=== PATIENT | male | born 1970 | race Caucasian/White ===

== ENCOUNTER → 2016-08-24 | Outpatient (CLI) | payer OTHER, BC ==
--- NOTE | 2016-08-24 17:18 | CR ---
EXAMINATION: Left knee HISTORY: Pain COMPARISON: MRI dated 07/26/2016 TECHNIQUE: 4 views FINDINGS/IMPRESSION: There is no acute osseous abnormality, dislocation, or fracture identified. Bon e mineralization and joint spaces appear normal. No soft tissue swelling or joint effusion. Early os teophyte formation is noted.
== END | disposition home or self-care (01) ==
LOC: MW.CHORTHO 15:35
PROVIDERS: ATTEND Orthopaedic Surgery
DX: M25.562 Pain in left knee (principal); M25.762 Osteophyte, left knee
CPT/HCPCS: 73564-26-LT; 73564-LT

== ENCOUNTER 2016-08-30 07:21 | Day surgery (SDC) | payer OTHER, BC ==
[~2016-08-30 07:21] MED LIST: Lactated Ringers 1,000 ML IV SCH; Lidocaine 1% 50 ML MDV ONE; ceFAZolin 2 GM in Premix Bag 1 BAG IV SCH
[2016-08-30] MEDS ORDERED: Lidocaine 2% 5 ML SDV ONE (07:30)
[2016-08-30] MEDS ORDERED: Propofol 200 MG/20 ML SDV ONE (07:31)
[2016-08-30] MEDS ORDERED: fentaNYL 250 MCG/5 ML SDV ONE (07:31)
[2016-08-30] MEDS ORDERED: Midazolam 1 MG/ML 2 ML SDV ONE (07:31)
[2016-08-30] MEDS ORDERED: Succinylcholine/Normal Saline 200 MG/10 ML Syringe ONE (07:32)
[2016-08-30] MEDS ORDERED: Ketorolac 30 MG/ML SDV ONE (07:32)
[2016-08-30] MEDS ORDERED: Ondansetron 4 MG/2 ML SDV ONE (07:32)
[2016-08-30] MEDS ORDERED: Acetaminophen/HYDROcodone 325-5 MG Tab PO PRN (08:00)
--- NOTE | 2016-08-30 08:04 | PCM.PREANE ---
Preanesthetic Assessment - Procedure Proposed Procedure: Left knee arthroscopy - Anesthesia/Transfusion/Family Hx Anesthesia History: Prior Anesthesia Without Reaction Other Type of Anesthesia Reaction Comment: Denies any known problem in past Family History of Anesthesia Reaction: No Transfusion History: No Prior Transfusion(s) - Review of Systems General: No Symptoms Pulmonary: No Symptoms Cardiovascular: No Symptoms (smoker by hx), Other (HTN - treated) Gastrointestinal: No symptoms Neurological: Difficulty Walking (ankles and knees problematic with surgical and arthritic effects) Other: Reports: Thyroid Problems (s/p thyroidectomy; on replacement therapy) - Physical Assessment NPO Status Date: 08/29/16 NPO Status Time: 23:00 O2 Sat by Pulse Oximetry: 95 Respiratory Rate: 18 Vital Signs: Last Vital Signs Temp 97.5 F 08/30/16 07:20 Pulse 86 08/30/16 07:20 Resp 18 08/30/16 07:20 BP 126/92 H 08/30/16 07:20 Pulse Ox 95 08/30/16 07:20 Height: 6 ft Weight: 335 lb ASA Class: 3 Mental Status: Alert & Oriented x3 Airway Class: Mallampati = 3 Dentition: Reports: Normal Dentition, [place](s) (upper frontals) Thyro-Mental Finger Breadths: 3 Mouth Opening Finger Breadths: 3 ROM/Head Extension: Limited/Partial (short neck) Lungs: Clear to auscultation, Normal respiratory effort Cardiovascular: Regular Rate, Regular Rhythm, No Murmurs - Allergies Allergies/Adverse Reactions: Allergies Allergy/AdvReac Type Severity Reaction Status Date / Time lisinopril Allergy Cough Verified 12/23/14 14:32 meloxicam Allergy Chest Pain Verified 12/23/14 14:32 pseudoephedrine HCl Allergy Rash Verified 12/23/14 14:32 [From Actifed] triprolidine HCl Allergy Rash Verified 12/23/14 14:32 [From Actifed] - Blood Blood Available: No Product(s) Available: None - Anesthesia Plan Pre-Op Medication Ordered: None - Acknowledgements Anesthesia Type Planned: General Anesthesia (LMA) Pt an Appropriate Candidate for the Planned Anesthesia: Yes Alternatives and Risks of Anesthesia Discussed w Pt/Guardian: Yes Pt/Guardian Understands and Agrees with Anesthesia Plan: Yes PreAnesthesia Questionnaire HEENT History: Reports: None Cardiovascular History: Reports: Hypertension Respiratory History: Reports: None Gastrointestinal History: Reports: None Genitourinary History: Reports: None Other Musculoskeletal History: hx: fracturing Left Ankle Neurological History: Reports: None Psychiatric History: Reports: None Endocrine/Metabolic History: Reports: Hypothyroidism, Obesity/BMI 30+ Other Endocrine/Metabolic History: hx: Thyroidectomy 4 yrs ago [place], [place] Hematologic History: Reports: None Immunologic History: Reports: None Oncologic (Cancer) History: Reports: Thyroid Dermatologic History: - Past Surgical History Head Surgeries/Procedures: Reports: None HEENT Surgical History: Reports: None Other Cardiovascular Surgeries/Procedures: Angiogram 2 yrs ago, "all ok" Respiratory Surgical History: Reports: None GI Surgical History: Reports: Appendectomy, Cholecystectomy Male Surgical History: Reports: None Endocrine Surgical History: Reports: Thyroidectomy Neurological Surgical History: Reports: None Musculoskeletal Surgical History: Reports: Arthroscopic knee, Other (see below) Other Musculoskeletal Surgeries/Procedures:: 2 arthroscopies on each knee, ORIF left ankle with hardware Oncologic Surgical History: Reports: None Dermatological Surgical History: Reports: Plastic surgical reconstruction/repair - SUBSTANCE USE Smoking Status *Q: Current Every Day Smoker Tobacco Use Within Last Twelve Months: Cigars Second Hand Smoke Exposure: No Days Per Week of Alcohol Use: 1 Number of Drinks Per Day: 0 Total Drinks Per Week: 0 Recreational Drug Use History: No - HOME MEDS Home Medications: Home Meds Losartan Potassium 25 mg PO ACBRK 04/06/14 [History] Morphine Sulfate 30 mg PO BEDTIME 04/06/14 [History] Levothyroxine Sodium [Synthroid] 1 tab PO ACBREAKFAST 12/23/14 [History] Cholecalciferol (Vitamin D3) [Vitamin D3] 2,000 unit PO DAILY 08/28/16 [History] - CURRENT (IN HOUSE) MEDS Current Meds: Current Medications Hydrocodone Bitart/Acetaminophen ([place] 325-5 Mg) 1 - 2 tab PO Q4H PRN PRN Reason: Pain Lactated Ringer's (Ringers, Lactated) 1,000 mls @ 100 mls/hr IV ASDIRECTED [facility], [facility] Last Admin: 08/30/16 07:29 Dose: 100 mls/hr Cefazolin Sodium/Dextrose 2 gm (/ Premix) 50 mls @ 100 mls/hr IV ONCALL [facility] Discontinued Medications Fentanyl (Sublimaze) Confirm Administered Dose 250 mcg .ROUTE .STK-MED ONE Stop: 08/30/16 07:32 Ketorolac Tromethamine (Toradol) Confirm Administered Dose 30 mg .ROUTE .STK- MED ONE Stop: 08/30/16 07:33 Lidocaine (Xylocaine-Mpf 2%) Confirm Administered Dose 10 ml .ROUTE .STK-MED ONE Stop: 08/30/16 07:31 Lidocaine HCl (Xylocaine 1%) Confirm Administered Dose 50 ml .ROUTE .STK-MED ONE Stop: 08/29/16 14:07 Midazolam HCl (Versed 1 Mg/Ml) Confirm Administered Dose 2 mg .ROUTE .STK-MED ONE Stop: 08/30/16 07:32 Ondansetron HCl (Zofran) Confirm Administered Dose 4 mg .ROUTE .STK-MED ONE Stop: 08/30/16 07:33 Propofol (Diprivan 20 Ml) Confirm Administered Dose 400 mg .ROUTE .STK-MED ONE Stop: 08/30/16 07:32 Succinylcholine Chloride (Succinylcholine In Ns Pf) Confirm Administered Dose 200 mg .ROUTE .STK-MED ONE Stop: 08/30/16 07:33
--- NOTE | 2016-08-30 08:59 | PCM.OPNOTE ---
[id number] with partial lateral menisectomy Post-Op Diagnosis: DJD L knee, lateral meniscus tear Anesthesia Technique: General ET tube Primary Surgeon: Tania Vicente Entry Clerk: Dwain Oropeza in mLs: 5 Condition: Good Free Text/Narrative:: tt=20 min #[id number]
[2016-08-30] MEDS ORDERED: HYDROmorphone 2 MG/ML Syringe ONE (09:16)
[2016-08-30] MEDS ORDERED: HYDROmorphone 2 MG/ML Syringe IVPUSH ONE (09:51)
[2016-08-30 11:38] VITALS: BP 122/70
--- NOTE | 2016-08-30 12:16 | PCM.POSTAN ---
POST ANESTHESIA ASSESSMENT - MENTAL STATUS Mental Status: oriented, somnolent - RESPIRATORY Respiratory Status: respiratory rate WNL, airway patent, O2 saturation stable - CARDIOVASCULAR CV Status: pulse rate WNL, blood pressure stable - GASTROINTESTINAL GI Status: no symptoms - POST OP HYDRATION Hydration Status: adequate & stable - OBSERVATIONS Free Text/Narrative:: To SDS bed.
--- NOTE | 2016-08-30 12:17 | PCM48HPAN ---
Post Anesthesia Note - EVALUATION WITHIN 48HRS OF ANESTHETIC Vital Signs in Normal Range: Yes Patient Participated in Evaluation: Yes Respiratory Function Stable: Yes Airway Patent: Yes Cardiovascular Function Stable: Yes Hydration Status Stable: Yes Pain Control Satisfactory: Yes (5/10 and will need some pain meds tonight..per patient) Nausea and Vomiting Control Satisfactory: Yes Mental Status Recovered: Yes - COMMENTS/OBSERVATIONS Free Text/Narrative:: DC to home soon.
--- NOTE | 2016-08-30 14:38 | OR ---
SURGEON: Tania Vicente MD DATE OF PROCEDURE: 08/30/2016 PREOPERATIVE DIAGNOSIS: Degenerative joint disease, left knee. POSTOPERATIVE DIAGNOSIS: 1. Degenerative joint disease, left knee. 2. Left knee lateral meniscus tear. PROCEDURE: Left knee arthroscopy with partial lateral meniscectomy. RETORT SETTER: Kaylen Oropeza PA-C. ANESTHESIA: General. ESTIMATED BLOOD LOSS: 5 mL. TOURNIQUET TIME: 28 minutes. COMPLICATIONS: None. DVT PROPHYLAXIS: Not indicated. IMPLANTS USED: None. BRIEF HISTORY: Ward is a 46-year-old male, who has had complaint of progressive left knee pain. He has had two prior surgeries. Due to his lack of response to conservative treatment, I did recommend surgical intervention. The risks and goals of the procedure were discussed with the patient and were documented preoperatively. He agreed to proceed. DESCRIPTION OF PROCEDURE: The patient was properly identified and brought to the operating room. He was transferred from the OR cart and placed on the operating table in a supine position. General anesthesia was administered. After adequate anesthesia was obtained, a well-padded tourniquet was applied to the left lower extremity. The left lower extremity was then prepped in standard fashion using ChloraPrep solution. It was then sterilely draped. A time-out was performed to ensure correct site and procedure. Preoperative antibiotics were given. The surgical site had been marked preoperatively. An Esmarch was used to exsanguinate the left lower extremity and the tourniquet was inflated to 250 mmHg. A lateral portal arthrotomy was established. Blunt trocar and cannula were introduced into the suprapatellar space. Camera, inflow, and outflow were assembled. The patellofemoral joint was visualized. The patella appeared to track centrally. I then extended down the lateral and medial gutter. No loose bodies were encountered. I then entered the medial compartment. A medial portal arthrotomy was made. A probe was inserted. The meniscus was extensively probed. No tear was appreciated. The medial tibial plateau showed evidence of diffuse grade 2 chondromalacia. Similar findings were noted along the medial femoral condyle. I then entered the notch. Both the ACL and PCL were visualized and probed and found to be intact. I then entered the lateral compartment. There was a portion of tissue along the anterolateral aspect of the meniscus which appeared to be causing some impingement within the joint. This was resected with a shaver. It did not appear to be a portion of the ACL. It appeared to be more hypertrophic tissue along the anterior meniscus. The remainder of the anterior meniscus was intact with minor degenerative fraying. No further impingement was noted. The meniscus was then probed. He was found to have degenerative tearing of the lateral meniscus. This was resected with a combination of biters and shaver. The meniscus was again probed and found to be stable. Grade 3 chondromalacia was noted diffusely along the lateral tibial plateau with grade 2 findings along the lateral femoral condyle. I then re-entered the patellofemoral joint. A portion of the fat pad was resected for visualization. He had extensive degenerative changes along the central portion of the trochlea which measured approximately 15 mm x 25 mm. The undersurface of the patella also showed diffuse grade 2 to grade 3 degenerative findings. A portion of the trochlear groove was treated with a chondroplasty to bring the cartilage back to stable remnant. Instruments were then removed from the knee. The portal sites were closed with 3-0 nylon. Lidocaine 1% was injected along the portal tracts. Xeroform gauze was placed over the wound and a bulky dressing was applied. The tourniquet was then deflated. He was awakened from his anesthetic and transferred back to the operating room cart. He was brought to recovery room in stable condition. All needle and sponge counts were correct. ALLA / LORNA /[id number]
== END 2016-08-30 12:00 | disposition home or self-care (01) ==
LOC: MW.SDS 07:21
PROVIDERS: ATTEND Orthopaedic Surgery
DX: S83.282A Other tear of lateral meniscus, current injury, left knee, initial encounter (principal); M17.12 Unilateral primary osteoarthritis, left knee; M65.862 Other synovitis and tenosynovitis, left lower leg; I10 Essential (primary) hypertension; Z98.890 Other specified postprocedural states; Z79.899 Other long term (current) drug therapy; Z88.8 Allergy status to other drugs, medicaments and biological substances
CPT/HCPCS: 29881; J0690; J1170; J2250; J2405; J3010; J7120; 01400; 88304; J1885; J2704

== ENCOUNTER 2017-01-24 06:24 | Day surgery (SDC) | payer OTHER, BC ==
[~2017-01-24 06:24] MED LIST changes: -Lidocaine 1% 50 ML MDV ONE
[2017-01-24] MEDS ORDERED: Propofol 200 MG/20 ML SDV ONE (07:24)
[2017-01-24] MEDS ORDERED: Lidocaine 2% 5 ML SDV ONE (07:24)
[2017-01-24] MEDS ORDERED: Midazolam 1 MG/ML 2 ML SDV ONE (07:25)
[2017-01-24] MEDS ORDERED: fentaNYL 100 MCG/2 ML SDV ONE (07:25)
[2017-01-24] MEDS ORDERED: Lidocaine 1% 20 ML MDV ONE (07:31)
--- NOTE | 2017-01-24 07:41 | PCM.PREANE ---
Preanesthetic Assessment - Anesthesia/Transfusion/Family Hx Anesthesia History: Prior Anesthesia Without Reaction Other Type of Anesthesia Reaction Comment: Denies any known problem in past Family History of Anesthesia Reaction: No Transfusion History: No Prior Transfusion(s) - Review of Systems General: No Symptoms Pulmonary: No Symptoms Cardiovascular: No Symptoms Gastrointestinal: No Symptoms Neurological: No Symptoms Other: Reports: None - Physical Assessment NPO Status Date: 01/23/17 O2 Sat by Pulse Oximetry: 94 Respiratory Rate: 16 Vital Signs: Last Vital Signs Temp 36.8 C 01/24/17 06:32 Pulse 74 01/24/17 06:32 Resp 16 01/24/17 06:32 BP 128/73 01/24/17 06:32 Pulse Ox 94 L 01/24/17 06:32 Height: 1.83 m Weight: 151.5 kg ASA Class: 2 Airway Class: Mallampati = 3 Dentition: Reports: [place](s) (central maxillary incisors) ROM/Head Extension: Full Lungs: Clear to Auscultation, Normal Respiratory Effort Cardiovascular: Regular Rate, Regular Rhythm - Allergies Allergies/Adverse Reactions: Allergies Allergy/AdvReac Type Severity Reaction Status Date / Time lisinopril Allergy Cough Verified 01/18/17 13:05 meloxicam Allergy Chest Pain Verified 01/18/17 13:05 pseudoephedrine HCl Allergy Rash Verified 01/18/17 13:05 [From Actifed] triprolidine HCl Allergy Rash Verified 01/18/17 13:05 [From Actifed] - Acknowledgements Anesthesia Type Planned: General Anesthesia Pt an Appropriate Candidate for the Planned Anesthesia: Yes Alternatives and Risks of Anesthesia Discussed w Pt/Guardian: Yes Pt/Guardian Understands and Agrees with Anesthesia Plan: Yes Additional Comments: pmh: [place], HTN, chronic pain L foot, thyroid replacement, smoker, probable LYNDSAY. PreAnesthesia Questionnaire HEENT History: Reports: None Cardiovascular History: Reports: Hypertension Respiratory History: Reports: None Gastrointestinal History: Reports: None Genitourinary History: Reports: None Musculoskeletal History: Reports: Fracture Other Musculoskeletal History: hx: fracturing Left Ankle Neurological History: Reports: None Psychiatric History: Reports: None Endocrine/Metabolic History: Reports: Hypothyroidism, Obesity/BMI 30+ Other Endocrine/Metabolic History: hx: Thyroidectomy 4 yrs ago [place] Hematologic History: Reports: None Immunologic History: Reports: None Oncologic (Cancer) History: Reports: Thyroid Dermatologic History: - Past Surgical History Head Surgeries/Procedures: Reports: None HEENT Surgical History: Reports: None Other Cardiovascular Surgeries/Procedures: Angiogram 2 yrs ago, "all ok" Respiratory Surgical History: Reports: None GI Surgical History: Reports: Appendectomy, Cholecystectomy, Hernia Repair/Other Other GI Surgeries/Procedures: abdominoplasty x2 with hernia repair Male Surgical History: Reports: None Endocrine Surgical History: Reports: Thyroidectomy Neurological Surgical History: Reports: None Musculoskeletal Surgical History: Reports: Arthroscopic Knee, Other (See Below) Other Musculoskeletal Surgeries/Procedures:: 2 arthroscopies on each knee, ORIF left ankle with hardware, ligament repair right ankle Oncologic Surgical History: Reports: Other (See Below) Other Oncologic Surgeries/Procedures: thyroidectomy Dermatological Surgical History: Reports: Plastic Surgical Reconstruction/Repair - SUBSTANCE USE Smoking Status *Q: Current Every Day Smoker Tobacco Use Within Last Twelve Months: Cigarettes Second Hand Smoke Exposure: No Days Per Week of Alcohol Use: 1 Number of Drinks Per Day: 0 Total Drinks Per Week: 0 Recreational Drug Use History: No - HOME MEDS Home Medications: Home Meds Losartan Potassium 25 mg PO ACBRK 04/06/14 [History] Morphine Sulfate 30 mg PO BEDTIME 04/06/14 [History] Levothyroxine Sodium [Synthroid] 1 tab PO ACBREAKFAST 12/23/14 [History] Cholecalciferol (Vitamin D3) [Vitamin D3] 2,000 unit PO DAILY 08/28/16 [History] Gabapentin [Neurontin] 300 mg PO TID 01/18/17 [History] - CURRENT (IN HOUSE) MEDS Current Meds: Current Medications Hydrocodone Bitart/Acetaminophen ([place] 325-5 Mg) 1 - 2 tab PO Q4H PRN PRN Reason: Pain Cefazolin Sodium/Dextrose 2 gm (/ Premix) 50 mls @ 100 mls/hr IV ONCALL [facility] Lactated Ringer's (Ringers, Lactated) 1,000 mls @ 100 mls/hr IV ASDIRECTED [facility] Last Admin: 01/24/17 06:38 Dose: 100 mls/hr Discontinued Medications Fentanyl (Sublimaze) Confirm Administered Dose 300 mcg .ROUTE .STK-MED ONE Stop: 01/24/17 07:26 Lidocaine (Xylocaine-Mpf 2%) Confirm Administered Dose 10 ml .ROUTE .STK-MED ONE Stop: 01/24/17 07:25 Lidocaine HCl (Xylocaine 1%) Confirm Administered Dose 20 ml .ROUTE .STK-MED ONE Stop: 01/24/17 07:32 Midazolam HCl (Versed 1 Mg/Ml) Confirm Administered Dose 2 mg .ROUTE .STK-MED ONE Stop: 01/24/17 07:26 Propofol (Diprivan 20 Ml) Confirm Administered Dose 400 mg .ROUTE .STK-MED ONE Stop: 01/24/17 07:25
[2017-01-24] MEDS ORDERED: Acetaminophen/HYDROcodone 325-5 MG Tab PO PRN (08:00)
--- NOTE | 2017-01-24 08:53 | PCM.OPNOTE ---
- General Post-Op/Procedure Note Date of Surgery/Procedure: 01/24/17 Operative Procedure(s): R knee scope with chondroplasty of med/lat tibial plateau Post-Op Diagnosis: DJD R knee Anesthesia Technique: General LMA Primary Surgeon: Tania Vicente Senior Brand Manager: Aftab [place] in mLs: 5 Condition: Good Free Text/Narrative:: #[id number] tt=13 min
[2017-01-24] MEDS ORDERED: fentaNYL 100 MCG/2 ML SDV IVPUSH PRN (09:02)
--- NOTE | 2017-01-24 10:01 | PCM.POSTAN ---
POST ANESTHESIA ASSESSMENT - MENTAL STATUS Mental Status: Alert, Oriented - RESPIRATORY Respiratory Status: Respiratory Rate WNL, Airway Patent, O2 Saturation Stable - CARDIOVASCULAR CV Status: Pulse Rate WNL, Blood Pressure Stable - GASTROINTESTINAL GI Status: No Symptoms - POST OP HYDRATION Hydration Status: Adequate & Stable
--- NOTE | 2017-01-24 10:01 | PCM48HPAN ---
Post Anesthesia Note - EVALUATION WITHIN 48HRS OF ANESTHETIC Vital Signs in Normal Range: Yes Patient Participated in Evaluation: Yes Respiratory Function Stable: Yes Airway Patent: Yes Cardiovascular Function Stable: Yes Hydration Status Stable: Yes Pain Control Satisfactory: Yes Nausea and Vomiting Control Satisfactory: Yes Mental Status Recovered: Yes
--- NOTE | 2017-01-24 10:03 | OR ---
SURGEON: Tania Vicente MD DATE OF PROCEDURE: 01/24/2017 PREOPERATIVE DIAGNOSIS: Degenerative joint disease, right knee. POSTOPERATIVE DIAGNOSIS: Degenerative joint disease, right knee. PROCEDURE: Right knee arthroscopy with chondroplasty of the medial and lateral tibial plateau. DELINQUENCY PREVENTION SOCIAL WORKER: Juan Birmingham, PGY II. ANESTHESIA: General. ESTIMATED BLOOD LOSS: 5 mL. TOURNIQUET TIME: 13 minutes. COMPLICATIONS: None. DVT PROPHYLAXIS: Not indicated. IMPLANTS USED: None. BRIEF HISTORY: Ward is a 46-year-old male, who has had complaint of progressive right knee pain. He did undergo cortisone injections, which gave him good short-term relief. Due to his continued pain, I recommended he undergo a diagnostic arthroscopy. The risks and goals of the procedure were discussed with the patient and were documented preoperatively. He agreed to proceed. DESCRIPTION OF PROCEDURE: The patient was properly identified and brought to the operating room. He was transferred from the OR cart and placed on the operating table in supine position. General anesthesia was administered. After adequate anesthesia was obtained, a well-padded tourniquet was applied to the right lower extremity. The right lower extremity was then prepped in standard fashion using ChloraPrep solution. It was then sterilely draped. A time-out was performed to ensure correct site and procedure. Preoperative antibiotics were given. The surgical site had been marked preoperatively. An Esmarch was used to exsanguinate the right lower extremity and the tourniquet was inflated to 300 mmHg. A lateral portal arthrotomy was established. Blunt trocar and cannula were introduced into the suprapatellar pouch. Camera, inflow, and outflow were assembled. No significant synovitis was noted. The patellofemoral joint was visualized. Degenerative changes were noted. The patella appeared to track centrally. I extended down the lateral and medial gutter. No loose bodies were identified. I then entered the medial compartment. A medial portal arthrotomy was established. A blunt probe was inserted. The meniscus was extensively probed. No evidence of tearing or instability was noted. The medial femoral condyle showed evidence of grade 2 to grade 3 chondromalacia diffusely along the weightbearing surface. The medial tibial plateau also showed grade 3 chondromalacia diffusely. There were some loose fragments found and a chondroplasty was performed using the 4.0 mm shaver. I then entered the notch. Both the ACL and PCL were visualized and probed and found to be intact. I then entered the lateral compartment. The meniscus was again probed and found to be stable. He had grade 2 chondromalacia diffusely along the weightbearing surface of the lateral femoral condyle. The lateral tibial plateau showed extensive degenerative changes with grade 3 to grade 4 chondromalacia. Chondroplasty of the lateral tibial plateau was then performed to remove any loose fragments. I then re-entered the patellofemoral joint. There was diffuse grade 3 to grade 4 chondromalacia along the undersurface of the patella as well as within the trochlear groove. No significant loose flaps were noted. The instruments were then removed from the knee. The portal sites were closed with 3-0 nylon. Lidocaine 1% was injected along the portal tracts. Xeroform gauze was placed over the wound and a bulky dressing was applied. The tourniquet was then deflated. He was awakened from his anesthetic and transferred back to the operating room cart. He was brought to the recovery room in stable condition. All needle and sponge counts were correct. ALLA / LORNA /[id number]
[2017-01-24 10:31] VITALS: BP 114/70
== END 2017-01-24 10:31 | disposition home or self-care (01) ==
LOC: MW.SDS 06:24
PROVIDERS: ATTEND Orthopaedic Surgery
DX: M17.0 Bilateral primary osteoarthritis of knee (principal); M94.261 Chondromalacia, right knee; F17.210 Nicotine dependence, cigarettes, uncomplicated; E89.0 Postprocedural hypothyroidism; I10 Essential (primary) hypertension; G62.9 Polyneuropathy, unspecified; E66.9 Obesity, unspecified; G89.29 Other chronic pain; Z88.8 Allergy status to other drugs, medicaments and biological substances; Z79.899 Other long term (current) drug therapy; Z68.42 Body mass index [BMI] 45.0-49.9, adult; Z90.49 Acquired absence of other specified parts of digestive tract; Z98.890 Other specified postprocedural states
CPT/HCPCS: 29877; J2250; J3010; J7120; 01400; 88304; J2704

== ENCOUNTER 2017-03-26 06:27 | Inpatient (IN) | payer OTHER, BC ==
[~2017-03-26 06:27] MED LIST changes: +Acetaminophen 1,000 MG in Premix Bag 1 BAG IV SCH; +Famotidine 20 MG/2 ML SDV IVPUSH SCH; -Lactated Ringers 1,000 ML IV SCH; +Scopolamine 1.5 MG Transdermal Patch TRDERM SCH; -ceFAZolin 2 GM in Premix Bag 1 BAG IV SCH; +oxyCODONE ER 20 MG TAB.ER PO SCH
[2017-03-26] MEDS: Lactated Ringers 1,000 ML IV SCH ×2 (07:10→20:20)
[2017-03-26] MEDS ORDERED: Lidocaine 2% 5 ML SDV ONE (07:21)
[2017-03-26] MEDS ORDERED: Propofol 200 MG/20 ML SDV ONE ×2 (07:22→07:31)
[2017-03-26] MEDS ORDERED: fentaNYL 100 MCG/2 ML SDV ONE ×2 (07:22→07:27)
[2017-03-26] MEDS ORDERED: Midazolam 1 MG/ML 2 ML SDV ONE (07:22)
--- NOTE | 2017-03-26 07:27 | PCM.PREANE ---
Preanesthetic Assessment - Anesthesia/Transfusion/Family Hx Anesthesia History: Prior Anesthesia Without Reaction Other Type of Anesthesia Reaction Comment: Denies any known problem in past Transfusion History: No Prior Transfusion(s) Intubation History: History of Difficulty Intubation (past when much heavier) - Review of Systems General: Other (lower extremity pain/arthritis) Pulmonary: No Symptoms Cardiovascular: Other (HTN - treated) Gastrointestinal: Other (s/p abdominal plasty prodecure and hernia repairs) Neurological: Gait Disturbance (due to both knee and ankle problems) Other: Reports: Thyroid Problems (CA treated...on thyroid med now) - Physical Assessment NPO Status Date: 03/25/17 NPO Status Time: 23:00 Height: 6 ft Weight: 345 lb ASA Class: 3 Mental Status: Alert & Oriented x3 Airway Class: Mallampati = 2 Dentition: Reports: Normal Dentition, [place](s) Thyro-Mental Finger Breadths: 3 Mouth Opening Finger Breadths: 3 ROM/Head Extension: Limited/Partial Lungs: Clear to Auscultation, Normal Respiratory Effort Cardiovascular: Regular Rate, Regular Rhythm, No Murmurs - Allergies Allergies/Adverse Reactions: Allergies Allergy/AdvReac Type Severity Reaction Status Date / Time lisinopril Allergy Cough Verified 03/23/17 12:52 meloxicam Allergy Chest Pain Verified 03/23/17 12:52 pseudoephedrine HCl Allergy Rash Verified 03/23/17 12:52 [From Actifed] triprolidine HCl Allergy Rash Verified 03/23/17 12:52 [From Actifed] - Blood Blood Available: Yes Product(s) Available: PRBC (T and S) - Anesthesia Plan Pre-Op Medication Ordered: Other (per surgeon) - Acknowledgements Anesthesia Type Planned: Spinal (possible LMA general) Pt an Appropriate Candidate for the Planned Anesthesia: Yes Alternatives and Risks of Anesthesia Discussed w Pt/Guardian: Yes Pt/Guardian Understands and Agrees with Anesthesia Plan: Yes PreAnesthesia Questionnaire HEENT History: Reports: None, Hard of Hearing Other HEENT History: hard of hearing left ear Cardiovascular History: Reports: Hypertension Respiratory History: Reports: None Gastrointestinal History: Reports: None Genitourinary History: Reports: None Musculoskeletal History: Reports: Arthritis, Fracture Other Musculoskeletal History: hx: fracturing Left Ankle Neurological History: Reports: None Psychiatric History: Reports: None Endocrine/Metabolic History: Reports: Hypothyroidism, Obesity/BMI 30+ Other Endocrine/Metabolic History: hx: Thyroidectomy 4 yrs ago [facility] [place], [place] Hematologic History: Reports: None Immunologic History: Reports: None Oncologic (Cancer) History: Reports: Thyroid Dermatologic History: - Past Surgical History Head Surgeries/Procedures: Reports: None HEENT Surgical History: Reports: None, LASIK, Naso-Sinus Surgery Other Cardiovascular Surgeries/Procedures: Angiogram 2 yrs ago, "all ok" Respiratory Surgical History: Reports: None GI Surgical History: Reports: Appendectomy, Cholecystectomy, Hernia Repair/Other Other GI Surgeries/Procedures: abdominoplasty x2 with hernia repair Male Surgical History: Reports: None Endocrine Surgical History: Reports: Thyroidectomy Neurological Surgical History: Reports: None Musculoskeletal Surgical History: Reports: Arthroscopic Knee, Carpal Tunnel, Other (See Below) Other Musculoskeletal Surgeries/Procedures:: 3 arthroscopies on each knee, ORIF left ankle with hardware, ligament repair right ankle, "lump removed " from chest Oncologic Surgical History: Reports: Other (See Below) Other Oncologic Surgeries/Procedures: thyroidectomy Dermatological Surgical History: Reports: Plastic Surgical Reconstruction/Repair - SUBSTANCE USE Smoking Status *Q: Current Some Day Smoker Tobacco Use Within Last Twelve Months: Cigars Second Hand Smoke Exposure: No Days Per Week of Alcohol Use: 1 Number of Drinks Per Day: 0 Total Drinks Per Week: 0 Recreational Drug Use History: No - HOME MEDS Home Medications: Home Meds Losartan Potassium 25 mg PO ACBRK 04/06/14 [History] Morphine Sulfate 30 mg PO BEDTIME 04/06/14 [History] Levothyroxine Sodium [Synthroid] 1 tab PO ACBREAKFAST 12/23/14 [History] Cholecalciferol (Vitamin D3) [Vitamin D3] 1,000 unit PO DAILY 08/28/16 [History] Gabapentin [Neurontin] 300 mg PO TID 01/18/17 [History] Sildenafil Citrate [Sildenafil] 20 mg PO ASDIRECTED PRN 03/23/17 [History] - CURRENT (IN HOUSE) MEDS Current Meds: Current Medications Famotidine (Pepcid) 40 mg IVPUSH ONARRIVE [facility] Last Admin: 03/26/17 07:09 Dose: 40 mg Acetaminophen 1,000 mg/ Premix 100 mls @ 400 mls/hr IV ONARRIVE [facility] Last Admin: 03/26/17 07:07 Dose: 400 mls/hr Cefazolin Sodium/Dextrose 2 gm (/ Premix) 50 mls @ 100 mls/hr IV ONCALL [facility] Ropivacaine 49.25 ml/Epinephrine HCl 0.5 mg/Clonidine HCl 80 mcg/ Sodium Chloride 100 mls @ 50 mls/min INJECT ASDIRECTED [facility] Lactated Ringer's (Ringers, Lactated) 1,000 mls @ 100 mls/hr IV ASDIRECTED [facility] Last Admin: 03/26/17 07:10 Dose: 100 mls/hr Tranexamic Acid 4,000 mg/ (Sodium Chloride) 140 mls @ 600 mls/hr IV ASDIRECTED [facility] Oxycodone HCl (Oxycontin) 20 mg PO ONARRIVE [facility] Last Admin: 03/26/17 07:08 Dose: 20 mg Scopolamine (Transderm-Scop) 1.5 mg TRDERM ONARRIVE [facility] Last Admin: 03/26/17 07:08 Dose: 1.5 mg Discontinued Medications Acetaminophen (Ofirmev) Confirm Administered Dose 100 mls @ as directed IV .STK- MED ONE Stop: 03/26/17 05:46
[2017-03-26] MEDS ORDERED: Ropivacaine 49.25 ML, EPINEPHrine 0.5 MG, cloNIDine 80 MCG in Sodium Chloride 0.9% 49.4... INJECT SCH (08:00)
[2017-03-26] MEDS ORDERED: ceFAZolin 2 GM in Premix Bag 1 BAG IV SCH ×2 (08:00→14:00)
[2017-03-26] MEDS ORDERED: Tranexamic Acid 4,000 MG in Sodium Chloride 0.9% 100 ML IV SCH (08:00)
[2017-03-26] MEDS ORDERED: HYDROmorphone 2 MG/ML Syringe IVPUSH ONE (08:23)
[2017-03-26] MEDS ORDERED: fentaNYL 100 MCG/2 ML SDV IVPUSH PRN (08:23)
[2017-03-26] MEDS ORDERED: ePHEDrine 50 MG/ML SDV ONE (09:36)
--- NOTE | 2017-03-26 09:50 | PCM.SN ---
- Free Text/Narrative Note: Patient had sudden bradycardia with asystole following. Chemical resuscitation was ongoing but chest compressions were iniatiated with this development. LMA was airway and ventilation was confirmed. Patient monitoring confirmed response to epinephrine, robinul, and phenylephrine. Chest compressions stopped with carotid pulse confirmed with then chemically induced hypertensive response with peripeheral vasoconstriction. Vitals stabilized and OET placed alternative to the LMA. Surgical care had been suspended with sterile cover of the surgical site for the short CPR chest access. Case then resumed. See anesthesia record. A -line planned and cardiac enzymes/EKG ordered (to be done in [facility]). Monitor at this time is WNL and expectation is to finish the open knee operation.
[2017-03-26] MEDS ORDERED: Aluminum Hydroxide/Magnesium Hydroxide/Simethicone Susp 30 ML Cup PO PRN (10:40)
[2017-03-26] MEDS ORDERED: Ondansetron 4 MG/2 ML SDV IV PRN (10:40)
[2017-03-26] MEDS ORDERED: Bisacodyl 10 MG Supp RECTAL PRN (10:40)
--- NOTE | 2017-03-26 10:44 | PCM.OPNOTE ---
- General Post-Op/Procedure Note Date of Surgery/Procedure: 03/26/17 Operative Procedure(s): R TKA Post-Op Diagnosis: DJD R knee Anesthesia Technique: General ET Tube, Spinal Primary Surgeon: Tania Vicente Band Leader: Mary Grace Marcelo Band Leader: Dwain Oropeza in mLs: 100 Condition: Good Free Text/Narrative:: tt=65 min #[id number]
[2017-03-26] MEDS ORDERED: Esmolol 100 MG/10 ML SDV ONE (10:46)
--- NOTE | 2017-03-26 11:28 | PCM.LDHP ---
L&D History of Present Illness - General Admit Problem/Dx: Patient Status Order with Admit Dx/Problem 03/26/17 06:00 Patient Status [ADT] Routine Admission Diagnosis/Problem Admission Diagnosis/Problem Replacement of total knee joint - Related Data Allergies/Adverse Reactions: Allergies Allergy/AdvReac Type Severity Reaction Status Date / Time lisinopril Allergy Cough Verified 03/23/17 12:52 meloxicam Allergy Chest Pain Verified 03/23/17 12:52 pseudoephedrine HCl Allergy Rash Verified 03/23/17 12:52 [From Actifed] triprolidine HCl Allergy Rash Verified 03/23/17 12:52 [From Actifed] Home Medications: Home Meds Losartan Potassium 25 mg PO ACBRK 04/06/14 [History] Morphine Sulfate 30 mg PO BEDTIME 04/06/14 [History] Levothyroxine Sodium [Synthroid] 200 mcg PO ACBREAKFAST 12/23/14 [History] Cholecalciferol (Vitamin D3) [Vitamin D3] 1,000 unit PO DAILY 08/28/16 [History] Gabapentin [Neurontin] 300 mg PO TID 01/18/17 [History] Sildenafil Citrate [Sildenafil] 20 mg PO ASDIRECTED PRN 03/23/17 [History] Past Medical History HEENT History: Reports: None, Hard of Hearing Other HEENT History: hard of hearing left ear Cardiovascular History: Reports: Hypertension Respiratory History: Reports: None Gastrointestinal History: Reports: None Genitourinary History: Reports: None Musculoskeletal History: Reports: Arthritis, Fracture Other Musculoskeletal History: hx: fracturing Left Ankle Neurological History: Reports: None Psychiatric History: Reports: None Endocrine/Metabolic History: Reports: Hypothyroidism, Obesity/BMI 30+ Other Endocrine/Metabolic History: hx: Thyroidectomy 4 yrs ago [facility], [place] Hematologic History: Reports: None Immunologic History: Reports: None Oncologic (Cancer) History: Reports: Thyroid Dermatologic History: - Past Surgical History Head Surgeries/Procedures: Reports: None HEENT Surgical History: Reports: None, LASIK, Naso-Sinus Surgery Other Cardiovascular Surgeries/Procedures: Angiogram 2 yrs ago, "all ok" Respiratory Surgical History: Reports: None GI Surgical History: Reports: Appendectomy, Cholecystectomy, Hernia Repair/Other Other GI Surgeries/Procedures: abdominoplasty x2 with hernia repair Male Surgical History: Reports: None Endocrine Surgical History: Reports: Thyroidectomy Neurological Surgical History: Reports: None Musculoskeletal Surgical History: Reports: Arthroscopic Knee, Carpal Tunnel, Other (See Below) Other Musculoskeletal Surgeries/Procedures:: 3 arthroscopies on each knee, ORIF left ankle with hardware, ligament repair right ankle, "lump removed " from chest Oncologic Surgical History: Reports: Other (See Below) Other Oncologic Surgeries/Procedures: thyroidectomy Dermatological Surgical History: Reports: Plastic Surgical Reconstruction/Repair Social & Family History - Tobacco Use Smoking Status *Q: Current Some Day Smoker Years of Tobacco use: 18 Used Tobacco, but Quit: Yes Month Tobacco Last Used: 11/2013 Second Hand Smoke Exposure: No - Alcohol Use Days Per Week of Alcohol Use: 1 Number of Drinks Per Day: 0 Total Drinks Per Week: 0 - Recreational Drug Use Recreational Drug Use: No Drug Use in Last 12 Months: No L&D Exam - Vital Signs Vital Signs: Last Vital Signs Temp 98.2 F 03/26/17 10:56 Pulse 92 03/26/17 11:20 Resp 15 03/26/17 11:20 BP 117/72 03/26/17 11:20 Pulse Ox 98 03/26/17 11:20 Weight: 156.489 kg - Patient Data Lab Results Last 24 hrs: Laboratory Results - last 24 hr 03/26/17 03/26/17 Range/Units 06:58 10:05 Creatine Kinase 135 (9-236) IU/L Troponin I < 0.10 (0.0-0.29) NG/ML Blood Type A POSITIVE Antibody Screen NEGATIVE Orders Last 24hrs: Active Orders 24 hr Category Date Time Status Patient Status [ADT] Routine ADT 03/26/17 06:00 Active Antiembolic Devices [RC] PER UNIT ROUTINE Care 03/26/17 06:00 Active Dressing Change [Wound Care] [RC] ASDIRECTED Care 03/26/17 10:39 Active EKG 12 Lead [EKG Documentation Completion] [RC] URGENT Care 03/26/17 09:38 Active Insert Urinary Catheter [OM.PC] Routine Care 03/26/17 08:00 Ordered Intake and Output [RC] ASDIRECTED Care 03/26/17 10:39 Active Neurovascular Check [RC] Q2HR Care 03/26/17 10:39 Active Notify Provider Consults [RC] ASDIRECTED Care 03/26/17 10:43 Active Notify Provider Vital Signs [RC] ASDIRECTED Care 03/26/17 10:39 Active RT Incentive Spirometry [RC] ASDIRECTED Care 03/26/17 10:39 Active Urinary Catheter Assessment [RC] ASDIRECTED Care 03/26/17 08:00 Active Vital Signs [RC] Q4H Care 03/26/17 10:39 Active Consult to Physician [CONS] Routine Cons 03/26/17 10:42 Active PT Evaluation and Treatment [CONS] Routine Cons 03/26/17 10:39 Active Regular Diet [DIET] Diet 03/26/17 Breakfast Active Knee 1V or 2V Rt [CR] Routine Exams 03/26/17 11:17 Ordered CBC WITH AUTO DIFF [HEME] Stat Lab 03/26/17 11:25 Ordered COMPREHENSIVE METABOLIC PN,CMP [CHEM] Stat Lab 03/26/17 11:26 Ordered HEMOGLOBIN/HEMATOCRIT,HH [HEME] DAILY Lab 03/27/17 06:00 Ordered HEMOGLOBIN/HEMATOCRIT,HH [HEME] DAILY Lab 03/28/17 06:00 Ordered HEMOGLOBIN/HEMATOCRIT,HH [HEME] DAILY Lab 03/29/17 06:00 Ordered MAGNESIUM [CHEM] Stat Lab 03/26/17 11:26 Ordered TROPONIN I [CHEM] Q6H Lab 03/26/17 17:30 Ordered TSH [CHEM] Routine Lab 03/26/17 11:26 Ordered Acetaminophen [Ofirmev] 1,000 mg Med 03/26/17 06:00 Active Premix Bag 1 bag IV ONARRIVE Acetaminophen [Ofirmev] 1,000 mg Med 03/26/17 13:00 Active Premix Bag 1 bag IV Q6H Acetaminophen [Tylenol Extra Strength] Med 03/27/17 01:00 Active 1,000 mg PO Q6H Alum Hydrox/Mag Hydrox/Simeth [Mag-Al Plus] Med 03/26/17 10:40 Active 30 ml PO Q4H PRN Apixaban [Eliquis] Med 03/27/17 09:00 Active 5 mg PO DAILY Bisacodyl [Dulcolax] Med 03/26/17 10:40 Active 10 mg RECTAL DAILY PRN Docusate Sodium [Colace] Med 03/26/17 21:00 Active 100 mg PO BID Famotidine [Pepcid] Med 03/26/17 06:00 Active 40 mg IVPUSH ONARRIVE Famotidine [Pepcid] Med 03/27/17 09:00 Active 40 mg PO DAILY Gabapentin [Neurontin] Med 03/26/17 14:00 Active 300 mg PO TID HYDROmorphone [Dilaudid] Med 03/26/17 10:40 Active 0.5 - 1 mg IVPUSH Q3H PRN Lactated Ringers [Ringers, Lactated] 1,000 ml Med 03/26/17 06:00 Active IV ASDIRECTED Levothyroxine [Synthroid] Med 03/27/17 07:30 Active 200 mcg PO ACBREAKFAST Losartan [Cozaar] Med 03/27/17 07:30 Active 25 mg PO ACBRK Ondansetron [Zofran] Med 03/26/17 10:40 Active 4 mg IV Q6HR PRN Ropivacaine [Naropin 0.2%] 49.25 ml Med 03/26/17 08:00 Active EPINEPHrine [Adrenalin 1:1000] 0.5 mg cloNIDine [Duraclon] 80 mcg Sodium Chloride 0.9% [Normal Saline] 49.45 ml INJECT ASDIRECTED Scopolamine [Transderm-Scop] Med 03/26/17 06:00 Active 1.5 mg TRDERM ONARRIVE Tranexamic Acid [Cyklokapron] 4,000 mg Med 03/26/17 08:00 Active Sodium Chloride 0.9% [Normal Saline] 100 ml IV ASDIRECTED ceFAZolin [Ancef] 2 gm Med 03/26/17 08:00 Active Premix Bag 1 bag IV ONCALL ceFAZolin [Ancef] 2 gm Med 03/26/17 12:30 Active Premix Bag 1 bag IV ONETIME ceFAZolin [Ancef] 2 gm Med 03/26/17 16:30 Active Premix Bag 1 bag IV Q8HR fentaNYL [Sublimaze] Med 03/26/17 08:23 Active 50 mcg IVPUSH Q5M PRN oxyCODONE Med 03/26/17 10:40 Active 5 - 10 mg PO Q4H PRN oxyCODONE ER [OxyCONTIN] Med 03/26/17 06:00 Active 20 mg PO ONARRIVE oxyCODONE ER [OxyCONTIN] Med 03/26/17 21:00 Active 20 mg PO Q12HR Antiembolic Hose [OM.PC] Routine Oth 03/26/17 06:00 Ordered Ice Therapy [OM.PC] Routine Oth 03/26/17 10:39 Ordered Obtain Home Medication List [OM.PC] Routine Oth 03/26/17 06:00 Ordered Sequential Compression Device [OM.PC] Routine Oth 03/26/17 06:00 Ordered Medication Orders Acetaminophen (Tylenol Extra Strength) 1,000 mg PO Q6H [facility] Al Hydroxide/Mg Hydroxide (Mag-Al Plus) 30 ml PO Q4H PRN PRN Reason: indigestion Apixaban (Eliquis) 5 mg PO DAILY [facility] Bisacodyl (Dulcolax) 10 mg RECTAL DAILY PRN PRN Reason: Constipation Docusate Sodium (Colace) 100 mg PO BID [facility] Famotidine (Pepcid) 40 mg IVPUSH ONARRIVE [facility] Last Admin: 03/26/17 07:09 Dose: 40 mg Famotidine (Pepcid) 40 mg PO DAILY [facility] Fentanyl (Sublimaze) 50 mcg IVPUSH Q5M PRN PRN Reason: Pain (severe 7-10) Stop: 03/27/17 08:23 Gabapentin (Neurontin) 300 mg PO TID [facility] Hydromorphone HCl (Dilaudid) 0.5 - 1 mg IVPUSH Q3H PRN PRN Reason: Pain Acetaminophen 1,000 mg/ Premix 100 mls @ 400 mls/hr IV ONARRIVE [facility] Last Admin: 03/26/17 07:07 Dose: 400 mls/hr Cefazolin Sodium/Dextrose 2 gm (/ Premix) 50 mls @ 100 mls/hr IV ONCALL [facility] Ropivacaine 49.25 ml/Epinephrine HCl 0.5 mg/Clonidine HCl 80 mcg/ Sodium Chloride 100 mls @ 50 mls/min INJECT ASDIRECTED [facility] Lactated Ringer's (Ringers, Lactated) 1,000 mls @ 100 mls/hr IV ASDIRECTED [facility] Last Admin: 03/26/17 07:10 Dose: 100 mls/hr Tranexamic Acid 4,000 mg/ (Sodium Chloride) 140 mls @ 600 mls/hr IV ASDIRECTED [facility] Acetaminophen 1,000 mg/ Premix 100 mls @ 400 mls/hr IV Q6H [facility] Stop: 03/26/17 19:14 Cefazolin Sodium/Dextrose 2 gm (/ Premix) 50 mls @ 100 mls/hr IV ONETIME ONE Stop: 03/26/17 12:59 Cefazolin Sodium/Dextrose 2 gm (/ Premix) 50 mls @ 100 mls/hr IV Q8HR [facility] Stop: 03/26/17 22:29 Levothyroxine Sodium (Synthroid) 200 mcg PO ACBREAKFAST [facility] Losartan Potassium (Cozaar) 25 mg PO ACBRK [facility] Ondansetron HCl (Zofran) 4 mg IV Q6HR PRN PRN Reason: NAUSEA/VOMITING Oxycodone HCl (Oxycontin) 20 mg PO ONARRIVE [facility] Last Admin: 03/26/17 07:08 Dose: 20 mg Oxycodone HCl (Oxycodone) 5 - 10 mg PO Q4H PRN PRN Reason: Pain Oxycodone HCl (Oxycontin) 20 mg PO Q12HR [facility] Scopolamine (Transderm-Scop) 1.5 mg TRDER ONARRIVE [facility] Last Admin: 03/26/17 07:08 Dose: 1.5 mg
--- NOTE | 2017-03-26 11:33 | PCM.CONS ---
H&P History of Present Illness - General Date of Service: 03/26/17 Admit Problem/Dx: Admission Diagnosis/Problem Admission Diagnosis/Problem Replacement of total knee joint Source of Information: Old Records, Provider, RN - History of Present Illness Initial Comments - Free Text/Narative: I was called to the recovery room to see this gentleman because of intraoperative asystole. After spinal was placed he became hypotensive. He was given ephedrine and IVF . He then became hypertensive transiently. Shortly thereafter his blood pressure started to drop and he became gradually bradycardic with heart rate decreasing to 19 per minute and then a less than 2 minute episode of asystole. He was treated with robinul, atropine and epinephrine. He was also given chest compressions. He returned to a sinus rhythm. - Related Data Allergies/Adverse Reactions: Allergies Allergy/AdvReac Type Severity Reaction Status Date / Time lisinopril Allergy Cough Verified 03/23/17 12:52 meloxicam Allergy Chest Pain Verified 03/23/17 12:52 pseudoephedrine HCl Allergy Rash Verified 03/23/17 12:52 [From Actifed] triprolidine HCl Allergy Rash Verified 03/23/17 12:52 [From Actifed] Home Medications: Home Meds Losartan Potassium 25 mg PO ACBRK 04/06/14 [History] Morphine Sulfate 30 mg PO BEDTIME 04/06/14 [History] Levothyroxine Sodium [Synthroid] 200 mcg PO ACBREAKFAST 12/23/14 [History] Cholecalciferol (Vitamin D3) [Vitamin D3] 1,000 unit PO DAILY 08/28/16 [History] Gabapentin [Neurontin] 300 mg PO TID 01/18/17 [History] Sildenafil Citrate [Sildenafil] 20 mg PO ASDIRECTED PRN 03/23/17 [History] Past Medical History HEENT History: Reports: None, Hard of Hearing Other HEENT History: hard of hearing left ear Cardiovascular History: Reports: Hypertension Respiratory History: Reports: None Gastrointestinal History: Reports: None Genitourinary History: Reports: None Musculoskeletal History: Reports: Arthritis, Fracture Other Musculoskeletal History: hx: fracturing Left Ankle Neurological History: Reports: None Psychiatric History: Reports: None Endocrine/Metabolic History: Reports: Hypothyroidism, Obesity/BMI 30+ Other Endocrine/Metabolic History: hx: Thyroidectomy 4 yrs ago [facility] - [place], [place] Hematologic History: Reports: None Immunologic History: Reports: None Oncologic (Cancer) History: Reports: Thyroid Dermatologic History: - Past Surgical History Head Surgeries/Procedures: Reports: None HEENT Surgical History: Reports: None, LASIK, Naso-Sinus Surgery Other Cardiovascular Surgeries/Procedures: Angiogram 2 yrs ago, "all ok" Respiratory Surgical History: Reports: None GI Surgical History: Reports: Appendectomy, Cholecystectomy, Hernia Repair/Other Other GI Surgeries/Procedures: abdominoplasty x2 with hernia repair Male Surgical History: Reports: None Endocrine Surgical History: Reports: Thyroidectomy Neurological Surgical History: Reports: None Musculoskeletal Surgical History: Reports: Arthroscopic Knee, Carpal Tunnel, Other (See Below) Other Musculoskeletal Surgeries/Procedures:: 3 arthroscopies on each knee, ORIF left ankle with hardware, ligament repair right ankle, "lump removed " from chest Oncologic Surgical History: Reports: Other (See Below) Other Oncologic Surgeries/Procedures: thyroidectomy Dermatological Surgical History: Reports: Plastic Surgical Reconstruction/Repair Social & Family History - Tobacco Use Smoking Status *Q: Current Some Day Smoker Years of Tobacco use: 18 Used Tobacco, but Quit: Yes Month Tobacco Last Used: 11/2013 Second Hand Smoke Exposure: No - Alcohol Use Days Per Week of Alcohol Use: 1 Number of Drinks Per Day: 0 Total Drinks Per Week: 0 - Recreational Drug Use Recreational Drug Use: No Drug Use in Last 12 Months: No H&P Review of Systems - Review of Systems: Review Of Systems: Unable To Obtain Exam - Exam Exam: See Below - Vital Signs Vital Signs: Last Vital Signs Temp 98.2 F 03/26/17 10:56 Pulse 92 03/26/17 11:20 Resp 15 03/26/17 11:20 BP 117/72 03/26/17 11:20 Pulse Ox 98 03/26/17 11:20 Weight: 156.489 kg - Exam General: Sedated, Lethargic Neck: Supple, Trachea Midline Lungs: Clear to Auscultation, Normal Respiratory Effort Cardiovascular: Regular Rate, Regular Rhythm GI/Abdominal Exam: Soft, Non-Tender Physical Exam Comments:: bilateral dorsales pedis pulses bilaterally; capillary refill left toes about 2 seconds. - Patient Data Lab Results Last 24 hrs: Laboratory Results - last 24 hr 03/26/17 03/26/17 Range/Units 06:58 10:05 Creatine Kinase 135 (9-236) IU/L Troponin I < 0.10 (0.0-0.29) NG/ML Blood Type A POSITIVE Antibody Screen NEGATIVE Consult PN Assessment/Plan Procedures: Procedures CONTRAST X-RAY ESOPHAGUS (09/17/15) CT ABDOMEN W/O & W/DYE (11/27/13) CT ABDOMEN W/O DYE (01/25/15) ELECTRIC CURRENT THERAPY (07/21/16) EXC SKIN ABD (04/08/14) EXC TR-EXT B9+PARAM 0.5 CM< (12/25/14) HOT OR COLD PACKS THERAPY (07/31/16) HYDRATE IV INFUSION ADD-ON (04/08/14) INTMD RPR S/A/T/EXT 20.1-30 (12/25/14) KNEE ARTHROSCOPY/SURGERY (01/24/17) KNEE ARTHROSCOPY/SURGERY (08/30/16) MANUAL THERAPY 1/> REGIONS (07/21/16) MRI JNT OF LWR EXTRE W/O DYE (03/06/17) MRI NECK SPINE W/O & W/DYE (03/31/16) PT EVAL LOW COMPLEX 20 MIN (11/20/16) PT EVAL MOD COMPLEX 30 MIN (06/19/16) THER/PROPH/DIAG INJ IV PUSH (04/08/14) THER/PROPH/DIAG INJ SC/IM (04/08/14) THERAPEUTIC EXERCISES (11/30/16) TISSUE EXAM BY PATHOLOGIST (12/26/16) TX/PRO/DX INJ SAME DRUG FL[employer] (04/08/14) ULTRASOUND THERAPY (11/30/16) UPR/L XTREMITY ART 2 LEVELS (09/17/15) US EXAM OF HEAD AND NECK (09/17/15) X-RAY EXAM KNEE 4 OR MORE (08/24/16) X-RAY EXAM OF ANKLE (03/22/16) X-RAY EXAM OF FOOT (11/15/16) X-RAY EXAM OF KNEE 1 OR 2 (01/11/17) X-RAY EXAM OF SHOULDER (06/18/14) (1) Cardiac arrest SNOMED Code(s): 557229893 Code(s): I46.9 - CARDIAC ARREST, CAUSE UNSPECIFIED Current Visit: Yes (2) Status post right knee replacement SNOMED Code(s): 738179447, 192496573 Code(s): Z96.651 - PRESENCE OF RIGHT ARTIFICIAL KNEE JOINT Current Visit: Yes (3) Status post knee replacement SNOMED Code(s): 033927325 Code(s): Z96.659 - PRESENCE OF UNSPECIFIED ARTIFICIAL KNEE JOINT Current Visit: Yes (4) History of chronic hypertension SNOMED Code(s): 407687382 Code(s): Z86.79 - PERSONAL HISTORY OF OTHER DISEASES OF THE CIRCULATORY SYSTEM Current Visit: Yes Problem List Initiated/Reviewed/Updated: Yes My Orders Last 24 Hours: My Active Orders 03/26/17 11:25 CBC WITH AUTO DIFF [HEME] Stat 03/26/17 11:26 COMPREHENSIVE METABOLIC PN,CMP [CHEM] Stat MAGNESIUM [CHEM] Stat TSH [CHEM] Routine 03/26/17 17:30 TROPONIN I [CHEM] Q6H Plan: troponins EKG echo lab in ICU for now
--- NOTE | 2017-03-26 11:56 | PCM.POSTAN ---
POST ANESTHESIA ASSESSMENT - MENTAL STATUS Mental Status: Alert, Oriented Free Text/Narrative:: A & O times3 responds verbal to verbal - VITAL SIGNS Pulse Rate: 100 SaO2: 97 (2 lpm supplemental O2) Resp Rate: 18 Blood Pressure: 100/64 - RESPIRATORY Respiratory Status: Respiratory Rate WNL, Airway Patent, O2 Saturation Stable, Supplemental Oxygen - CARDIOVASCULAR CV Status: Pulse Rate WNL, Blood Pressure Stable - GASTROINTESTINAL GI Status: No Symptoms - PAIN Pain Score: 0 - POST OP HYDRATION Hydration Status: Adequate & Stable - OBSERVATIONS Free Text/Narrative:: Awake and talking comfortable vitals in stable limits warm pink and dry ready to transfer to phase 2 in ICU
[2017-03-26] MEDS ORDERED: ceFAZolin 2 GM in Premix Bag 1 BAG IV ONE (12:30)
[2017-03-26] MEDS: Acetaminophen 1,000 MG in Premix Bag 1 BAG IV SCH ×2 (12:33→18:33)
[2017-03-26 13:11] LABS: CHLORIDE,CL 109 mmol/L (98-110); SODIUM,NA 138 mmol/L (136-146)
[2017-03-26] MEDS: oxyCODONE 5 MG Tab PO PRN ×4 (13:22→22:09)
[2017-03-26] MEDS: Gabapentin 300 MG Cap PO SCH ×2 (13:25→22:09)
[2017-03-26] MEDS: HYDROmorphone 1 MG/ML Syringe IVPUSH PRN ×2 (14:49→20:06)
--- NOTE | 2017-03-26 15:03 | CR ---
EXAMINATION: Right knee HISTORY: TKA COMPARISON: 03/06/2017 TECHNIQUE: 2 views FINDINGS/IMPRESSION: Right total knee hardware is demonstrated in good position and alignment. Postop erative soft tissue changes are noted.
--- NOTE | 2017-03-26 19:19 | PCM.SN ---
- Free Text/Narrative Note: I spoke with DR Aguirre, cardiology regarding the troponin elevation of 0.3. He is in agreement with us keeping him in our facility for now with serial troponins and close monitoring.
[2017-03-26] MEDS ORDERED: Aspirin 81 MG Tab.Chew PO ONE (19:22)
[2017-03-26] MEDS ORDERED: Magnesium Sulfate/Water 2 GM in Premix Bag 1 BAG IV ONE (19:53)
[2017-03-26] MEDS: Docusate Sodium 100 MG Cap PO SCH (20:08)
[2017-03-26] MEDS: oxyCODONE ER 20 MG TAB.ER PO SCH (20:08)
[2017-03-26] MEDS: ceFAZolin 2 GM in Premix Bag 1 BAG IV SCH (20:18)
[2017-03-27] MEDS: HYDROmorphone 1 MG/ML Syringe IVPUSH PRN ×4 (00:24→13:55)
[2017-03-27] MEDS: Acetaminophen 500 MG Tab PO SCH ×4 (00:27→18:39)
[2017-03-27] MEDS: oxyCODONE 5 MG Tab PO PRN ×5 (03:06→21:15)
[2017-03-27] MEDS: ceFAZolin 2 GM in Premix Bag 1 BAG IV SCH (04:11)
[2017-03-27 04:30] LABS: CHLORIDE,CL 104 mmol/L (98-110); SODIUM,NA 134 mmol/L (136-146)
[2017-03-27] MEDS: Gabapentin 300 MG Cap PO SCH ×3 (05:19→21:11)
[2017-03-27] MEDS: Levothyroxine 100 MCG Tab PO SCH (06:33)
[2017-03-27] MEDS: Losartan 50 MG Tab PO SCH (06:34)
[2017-03-27] MEDS: Famotidine 20 MG Tab PO SCH (07:59)
[2017-03-27] MEDS: Aspirin 81 MG Tab.Chew PO SCH (07:59)
[2017-03-27] MEDS: Apixaban 5 MG Tab PO SCH (07:59)
[2017-03-27] MEDS: oxyCODONE ER 20 MG TAB.ER PO SCH ×2 (07:59→21:10)
[2017-03-27] MEDS: Docusate Sodium 100 MG Cap PO SCH ×2 (07:59→21:10)
[2017-03-27] MEDS: Lactated Ringers 1,000 ML IV SCH (08:01)
--- NOTE | 2017-03-27 08:22 | PCM48HPAN ---
Post Anesthesia Note - EVALUATION WITHIN 48HRS OF ANESTHETIC Vital Signs in Normal Range: Yes Patient Participated in Evaluation: Yes Respiratory Function Stable: Yes Airway Patent: Yes Cardiovascular Function Stable: Yes (ECHO done last pm, mgmt by hospitalist - recovery from cardiac event-good) Hydration Status Stable: Yes Pain Control Satisfactory: Yes (complaint of pain and has not been out of bed) Nausea and Vomiting Control Satisfactory: Yes Mental Status Recovered: Yes - COMMENTS/OBSERVATIONS Free Text/Narrative:: May remove A-line later today.
--- NOTE | 2017-03-27 09:00 | PCM.SURGPN ---
<Mary Grace Marcelo R - Last Filed: 03/27/17 08:55> - General Info Date of Service: 03/27/17 Date of Surgery/Procedure: 03/26/17 POD#: 1 Functional Status: Reports: Pain Controlled, Tolerating Diet. Denies: Ambulating - Review of Systems General: Reports: No Symptoms Pulmonary: Reports: No Symptoms Cardiovascular: Reports: No Symptoms Gastrointestinal: Reports: No Symptoms Musculoskeletal: Reports: Leg Pain Systems Review Comment:: pt resting comfortably in bed pain control meets his expectations states he feels more like himself today has not been OOB but has been moving RLE in bed troponin did rise last night but did not continue to trend upward Dr Aguirre is currently with patient - Patient Data Vitals - Most Recent: Last Vital Signs Temp 98.8 F 03/27/17 04:00 Pulse 71 03/26/17 19:00 Resp 15 03/27/17 07:00 BP 108/79 03/27/17 07:00 Pulse Ox 99 03/27/17 07:00 Weight - Most Recent: 163 kg I&O - Last 24 Hours: Intake & Output 03/26/17 03/27/17 03/27/17 22:59 06:59 14:59 Intake Total 2100 2050 999 Output Total 450 850 Balance 1650 1200 999 Lab Results Last 24 Hrs: Laboratory Results - last 24 hr 03/26/17 03/26/17 03/26/17 Range/Units 10:05 12:36 12:36 WBC 10.88 (4.0-11.0) K/uL RBC 4.55 (4.50-5.90) M/uL Hgb 13.5 (13.0-17.0) g/dL Hct 39.8 (38.0-50.0) % MCV 87.5 (80.0-98.0) fL MCH 29.7 (27.0-32.0) pg MCHC 33.9 (31.0-37.0) g/dL RDW Std Deviation 44.2 (28.0-62.0) fl RDW Coeff of Dora 14 (11.0-15.0) % Plt Count 197 (150-400) K/uL MPV 9.40 (7.40-12.00) fL Neut % (Auto) 83.8 H (48.0-80.0) % Lymph % (Auto) 8.5 L (16.0-40.0) % Emmons % (Auto) 7.1 (0.0-15.0) % Eos % (Auto) 0.4 (0.0-7.0) % Baso % (Auto) 0.2 (0.0-1.5) % Neut # (Auto) 9.1 H (1.4-5.7) K/uL Lymph # (Auto) 0.9 (0.6-2.4) K/uL Emmons # (Auto) 0.8 (0.0-0.8) K/uL Eos # (Auto) 0.0 (0.0-0.7) K/uL Baso # (Auto) 0.0 (0.0-0.1) K/uL Nucleated RBC % 0.0 /100WBC Nucleated RBCs # 0 K/uL Sodium (136-146) mmol/L Potassium (3.5-5.1) mmol/L Chloride (98-110) mmol/L Carbon Dioxide (21-31) mmol/L BUN (6.0-23.0) mg/dL Creatinine (0.6-1.5) mg/dL Est Cr Clr Drug Dosing mL/min Estimated GFR (MDRD) ml/min Glucose (60-110) mg/dL Calcium (8.8-10.8) mg/dL Magnesium (1.5-2.3) mEq/L Total Bilirubin (0.1-1.5) mg/dL AST (5-40) IU/L ALT (8-54) IU/L Alkaline Phosphatase (40-150) Creatine Kinase 135 (9-236) IU/L Troponin I < 0.10 (0.0-0.29) NG/ML Total Protein (6.0-8.0) g/dL Albumin (3.5-5.0) g/dL Globulin (2.0-3.5) g/dL Albumin/Globulin Ratio Triglycerides (10-190) mg/dL Cholesterol (131-240) mg/dL LDL Cholesterol, Calc (60-180) mg/dL VLDL Cholesterol (5-55) mg/dL HDL Cholesterol (40-80) mg/dL Cholesterol/HDL Ratio (3.3-6.0) TSH 3rd Generation 0.88 (0.47-5.0) uIU/mL 03/26/17 03/26/17 03/26/17 Range/Units 12:36 16:08 21:59 WBC (4.0-11.0) K/uL RBC (4.50-5.90) M/uL Hgb (13.0-17.0) g/dL Hct (38.0-50.0) % MCV (80.0-98.0) fL MCH (27.0-32.0) pg MCHC (31.0-37.0) g/dL RDW Std Deviation (28.0-62.0) fl RDW Coeff of Dora (11.0-15.0) % Plt Count (150-400) K/uL MPV (7.40-12.00) fL Neut % (Auto) (48.0-80.0) % Lymph % (Auto) (16.0-40.0) % Emmons % (Auto) (0.0-15.0) % Eos % (Auto) (0.0-7.0) % Baso % (Auto) (0.0-1.5) % Neut # (Auto) (1.4-5.7) K/uL Lymph # (Auto) (0.6-2.4) K/uL Emmons # (Auto) (0.0-0.8) K/uL Eos # (Auto) (0.0-0.7) K/uL Baso # (Auto) (0.0-0.1) K/uL Nucleated RBC % /100WBC Nucleated RBCs # K/uL Sodium 138 (136-146) mmol/L Potassium 5.0 (3.5-5.1) mmol/L Chloride 109 (98-110) mmol/L Carbon Dioxide 23 (21-31) mmol/L BUN 20 (6.0-23.0) mg/dL Creatinine 1.0 (0.6-1.5) mg/dL Est Cr Clr Drug Dosing 98.08 mL/min Estimated GFR (MDRD) > 60.0 ml/min Glucose 106 (60-110) mg/dL Calcium 8.0 L (8.8-10.8) mg/dL Magnesium 1.4 L (1.5-2.3) mEq/L Total Bilirubin 0.3 (0.1-1.5) mg/dL AST 36 (5-40) IU/L ALT 49 (8-54) IU/L Alkaline Phosphatase 35 L (40-150) Creatine Kinase (9-236) IU/L Troponin I 0.31 H* 0.19 (0.0-0.29) NG/ML Total Protein 5.6 L (6.0-8.0) g/dL Albumin 3.2 L (3.5-5.0) g/dL Globulin 2.4 (2.0-3.5) g/dL Albumin/Globulin Ratio 1.33 Triglycerides (10-190) mg/dL Cholesterol (131-240) mg/dL LDL Cholesterol, Calc (60-180) mg/dL VLDL Cholesterol (5-55) mg/dL HDL Cholesterol (40-80) mg/dL Cholesterol/HDL Ratio (3.3-6.0) TSH 3rd Generation (0.47-5.0) uIU/mL 03/27/17 03/27/17 03/27/17 Range/Units 04:01 04:01 04:01 WBC (4.0-11.0) K/uL RBC (4.50-5.90) M/uL Hgb 12.5 L (13.0-17.0) g/dL Hct 36.8 L (38.0-50.0) % MCV (80.0-98.0) fL MCH (27.0-32.0) pg MCHC (31.0-37.0) g/dL RDW Std Deviation (28.0-62.0) fl RDW Coeff of Dora (11.0-15.0) % Plt Count (150-400) K/uL MPV (7.40-12.00) fL Neut % (Auto) (48.0-80.0) % Lymph % (Auto) (16.0-40.0) % Emmons % (Auto) (0.0-15.0) % Eos % (Auto) (0.0-7.0) % Baso % (Auto) (0.0-1.5) % Neut # (Auto) (1.4-5.7) K/uL Lymph # (Auto) (0.6-2.4) K/uL Emmons # (Auto) (0.0-0.8) K/uL Eos # (Auto) (0.0-0.7) K/uL Baso # (Auto) (0.0-0.1) K/uL Nucleated RBC % /100WBC Nucleated RBCs # K/uL Sodium 134 L (136-146) mmol/L Potassium 4.6 (3.5-5.1) mmol/L Chloride 104 (98-110) mmol/L Carbon Dioxide 24 (21-31) mmol/L BUN 18 (6.0-23.0) mg/dL Creatinine 0.8 (0.6-1.5) mg/dL Est Cr Clr Drug Dosing 122.60 mL/min Estimated GFR (MDRD) > 60.0 ml/min Glucose 117 H (60-110) mg/dL Calcium 7.9 L (8.8-10.8) mg/dL Magnesium 1.8 (1.5-2.3) mEq/L Total Bilirubin (0.1-1.5) mg/dL AST (5-40) IU/L ALT (8-54) IU/L Alkaline Phosphatase (40-150) Creatine Kinase (9-236) IU/L Troponin I 0.10 (0.0-0.29) NG/ML Total Protein (6.0-8.0) g/dL Albumin (3.5-5.0) g/dL Globulin (2.0-3.5) g/dL Albumin/Globulin Ratio Triglycerides 81 (10-190) mg/dL Cholesterol 116 L (131-240) mg/dL LDL Cholesterol, Calc 75 (60-180) mg/dL VLDL Cholesterol 16 (5-55) mg/dL HDL Cholesterol 25 L (40-80) mg/dL Cholesterol/HDL Ratio 4.6 (3.3-6.0) TSH 3rd Generation (0.47-5.0) uIU/mL Med Orders - Current: Current Medications Acetaminophen (Tylenol Extra Strength) 1,000 mg PO Q6H [facility] Last Admin: 03/27/17 06:31 Dose: 1,000 mg Al Hydroxide/Mg Hydroxide (Mag-Al Plus) 30 ml PO Q4H PRN PRN Reason: indigestion Apixaban (Eliquis) 5 mg PO DAILY [facility] Last Admin: 03/27/17 07:59 Dose: 5 mg Aspirin (Aspirin) 81 mg PO DAILY [facility] Last Admin: 03/27/17 07:59 Dose: 81 mg Bisacodyl (Dulcolax) 10 mg RECTAL DAILY PRN PRN Reason: Constipation Docusate Sodium (Colace) 100 mg PO BID [facility] Last Admin: 03/27/17 07:59 Dose: 100 mg Famotidine (Pepcid) 40 mg IVPUSH ONARRIVE [facility] Last Admin: 03/26/17 07:09 Dose: 40 mg Famotidine (Pepcid) 40 mg PO DAILY [facility] Last Admin: 03/27/17 07:59 Dose: 40 mg Gabapentin (Neurontin) 300 mg PO TID [facility] Last Admin: 03/27/17 05:19 Dose: 300 mg Hydromorphone HCl (Dilaudid) 0.5 - 1 mg IVPUSH Q3H PRN PRN Reason: Pain Last Admin: 03/27/17 05:17 Dose: 1 mg Acetaminophen 1,000 mg/ Premix 100 mls @ 400 mls/hr IV ONARRIVE [facility] Last Admin: 03/26/17 07:07 Dose: 400 mls/hr Cefazolin Sodium/Dextrose 2 gm (/ Premix) 50 mls @ 100 mls/hr IV ONCALL [facility] Ropivacaine 49.25 ml/Epinephrine HCl 0.5 mg/Clonidine HCl 80 mcg/ Sodium Chloride 100 mls @ 50 mls/min INJECT ASDIRECTED [facility] Lactated Ringer's (Ringers, Lactated) 1,000 mls @ 100 mls/hr IV ASDIRECTED [facility] Last Admin: 03/27/17 08:01 Dose: 100 mls/hr Tranexamic Acid 4,000 mg/ (Sodium Chloride) 140 mls @ 600 mls/hr IV ASDIRECTED [facility] Levothyroxine Sodium (Synthroid) 200 mcg PO ACBREAKFAST [facility] Last Admin: 03/27/17 06:33 Dose: 200 mcg Losartan Potassium (Cozaar) 25 mg PO ACBRK [facility] Last Admin: 03/27/17 06:34 Dose: 25 mg Ondansetron HCl (Zofran) 4 mg IV Q6HR PRN PRN Reason: NAUSEA/VOMITING Oxycodone HCl (Oxycontin) 20 mg PO ONARRIVE [facility] Last Admin: 03/26/17 07:08 Dose: 20 mg Oxycodone HCl (Oxycodone) 5 - 10 mg PO Q4H PRN PRN Reason: Pain Last Admin: 03/27/17 03:06 Dose: 10 mg Oxycodone HCl (Oxycontin) 20 mg PO Q12HR [facility] Last Admin: 03/27/17 07:59 Dose: 20 mg Scopolamine (Transderm-Scop) 1.5 mg TRDERM ONARRIVE [facility] Last Admin: 03/26/17 07:08 Dose: 1.5 mg Discontinued Medications Aspirin (Aspirin) 81 mg PO ONETIME ONE Stop: 03/26/17 19:23 Last Admin: 03/26/17 20:08 Dose: 81 mg Ephedrine Sulfate (Ephedrine Sulfate) Confirm Administered Dose 50 mg .ROUTE .STK-MED ONE Stop: 03/26/17 09:37 Esmolol HCl (Esmolol) Confirm Administered Dose 100 mg .ROUTE .STK-MED ONE Stop: 03/26/17 10:47 Fentanyl (Sublimaze) Confirm Administered Dose 100 mcg .ROUTE .STK-MED ONE Stop: 03/26/17 07:23 Fentanyl (Sublimaze) Confirm Administered Dose 100 mcg .ROUTE .STK-MED ONE Stop: 03/26/17 07:28 Fentanyl (Sublimaze) 50 mcg IVPUSH Q5M PRN PRN Reason: Pain (severe 7-10) Stop: 03/27/17 08:23 Hydromorphone HCl (Dilaudid) 0 mg IVPUSH ONETIME ONE Stop: 03/26/17 08:24 Last Admin: 03/26/17 13:00 Dose: Not Given Acetaminophen (Ofirmev) Confirm Administered Dose 100 mls @ as directed IV .STK- MED ONE Stop: 03/26/17 05:46 Last Admin: 03/26/17 13:00 Dose: Not Given Acetaminophen 1,000 mg/ Premix 100 mls @ 400 mls/hr IV Q6H [facility] Stop: 03/26/17 19:14 Last Admin: 03/26/17 18:33 Dose: 400 mls/hr Cefazolin Sodium/Dextrose 2 gm (/ Premix) 50 mls @ 100 mls/hr IV Q8HR [facility] Stop: 03/27/17 06:29 Cefazolin Sodium/Dextrose 2 gm (/ Premix) 50 mls @ 100 mls/hr IV ONETIME ONE Stop: 03/26/17 12:59 Last Admin: 03/26/17 12:34 Dose: 100 mls/hr Cefazolin Sodium/Dextrose 2 gm (/ Premix) 50 mls @ 100 mls/hr IV Q8H [facility] Stop: 03/27/17 04:59 Last Admin: 03/27/17 04:11 Dose: 100 mls/hr Magnesium Sulfate 2 gm/ Premix 50 mls @ 25 mls/hr IV ONETIME ONE Stop: 03/26/17 21:52 Last Admin: 03/26/17 20:08 Dose: 50 mls/hr Lidocaine (Xylocaine-Mpf 2%) Confirm Administered Dose 10 ml .ROUTE .STK-MED ONE Stop: 03/26/17 07:22 Midazolam HCl (Versed 1 Mg/Ml) Confirm Administered Dose 2 mg .ROUTE .STK-MED ONE Stop: 03/26/17 07:23 Propofol (Diprivan 20 Ml) Confirm Administered Dose 400 mg .ROUTE .STK-MED ONE Stop: 03/26/17 07:23 Propofol (Diprivan 20 Ml) Confirm Administered Dose 200 mg .ROUTE .STK-MED ONE Stop: 03/26/17 07:32 Tranexamic Acid (Cyklokapron) Confirm Administered Dose 4,000 mg .ROUTE .STK- MED ONE Stop: 03/26/17 07:50 - Exam Wound/Incisions: Dressing Dry and Intact. No: Drainage, Erythema General: Alert, Oriented Cardiovascular: Regular Rate, Regular Rhythm Extremities: Other (exam RLE - at/ehl/gastroc 5/5, dp 2+, sensation intact distally) Physical Findings Comment:: vss, afeb uo 1300mL hgb 12.5 no further elevation of serial troponins after 03/26 1730 lab draw - Problem List Review Problem List Initiated/Reviewed/Updated: Yes - My Orders Last 24 Hours: Active Orders 24 hr Category Date Time Status Dressing Change [Wound Care] [RC] Q12H Care 03/26/17 10:39 Active EKG Documentation Completion [RC] AM Care 03/27/17 07:00 Active Insert Urinary Catheter [OM.PC] Routine Care 03/26/17 08:00 Ordered Neurovascular Check [RC] Q2HR Care 03/26/17 10:39 Active Notify Provider Consults [RC] ASDIRECTED Care 03/26/17 10:43 Active Notify Provider Vital Signs [RC] ASDIRECTED Care 03/26/17 10:39 Active RT Incentive Spirometry [RC] ASDIRECTED Care 03/26/17 10:39 Active Urinary Catheter Assessment [RC] Q4H Care 03/26/17 08:00 Active Vital Signs [RC] Q1H Care 03/26/17 10:39 Active Consult to Physician [CONS] Routine Cons 03/26/17 10:42 Active PT Evaluation and Treatment [CONS] Routine Cons 03/26/17 10:39 Active Echo 2D wo Cont [US] Urgent Exams 03/26/17 11:34 Taken BASIC METABOLIC PANEL,BMP [CHEM] AM Lab 03/28/17 05:11 Ordered HEMOGLOBIN/HEMATOCRIT,HH [HEME] DAILY Lab 03/28/17 06:00 Ordered HEMOGLOBIN/HEMATOCRIT,HH [HEME] DAILY Lab 03/29/17 06:00 Ordered MAGNESIUM [CHEM] AM Lab 03/28/17 05:11 Ordered MAGNESIUM [CHEM] AM Lab 03/29/17 05:11 Ordered Acetaminophen [Tylenol Extra Strength] Med 03/27/17 01:00 Active 1,000 mg PO Q6H Alum Hydrox/Mag Hydrox/Simeth [Mag-Al Plus] Med 03/26/17 10:40 Active 30 ml PO Q4H PRN Apixaban [Eliquis] Med 03/27/17 09:00 Active 5 mg PO DAILY Aspirin Med 03/27/17 09:00 Active 81 mg PO DAILY Bisacodyl [Dulcolax] Med 03/26/17 10:40 Active 10 mg RECTAL DAILY PRN Docusate Sodium [Colace] Med 03/26/17 21:00 Active 100 mg PO BID Famotidine [Pepcid] Med 03/27/17 09:00 Active 40 mg PO DAILY Gabapentin [Neurontin] Med 03/26/17 14:00 Active 300 mg PO TID HYDROmorphone [Dilaudid] Med 03/26/17 10:40 Active 0.5 - 1 mg IVPUSH Q3H PRN Levothyroxine [Synthroid] Med 03/27/17 07:30 Active 200 mcg PO ACBREAKFAST Losartan [Cozaar] Med 03/27/17 07:30 Active 25 mg PO ACBRK Ondansetron [Zofran] Med 03/26/17 10:40 Active 4 mg IV Q6HR PRN Ropivacaine [Naropin 0.2%] 49.25 ml Med 03/26/17 08:00 Active EPINEPHrine [Adrenalin 1:1000] 0.5 mg cloNIDine [Duraclon] 80 mcg Sodium Chloride 0.9% [Normal Saline] 49.45 ml INJECT ASDIRECTED Tranexamic Acid [Cyklokapron] 4,000 mg Med 03/26/17 08:00 Active Sodium Chloride 0.9% [Normal Saline] 100 ml IV ASDIRECTED ceFAZolin [Ancef] 2 gm Med 03/26/17 08:00 Active Premix Bag 1 bag IV ONCALL oxyCODONE Med 03/26/17 10:40 Active 5 - 10 mg PO Q4H PRN oxyCODONE ER [OxyCONTIN] Med 03/26/17 21:00 Active 20 mg PO Q12HR Ice Therapy [OM.PC] Routine Oth 03/26/17 10:39 Ordered Medication Orders Acetaminophen (Tylenol Extra Strength) 1,000 mg PO Q6H [facility] Last Admin: 03/27/17 06:31 Dose: 1,000 mg Admin: 03/27/17 00:27 Dose: 1,000 mg Al Hydroxide/Mg Hydroxide (Mag-Al Plus) 30 ml PO Q4H PRN PRN Reason: indigestion Apixaban (Eliquis) 5 mg PO DAILY [facility] Last Admin: 03/27/17 07:59 Dose: 5 mg Aspirin (Aspirin) 81 mg PO DAILY [facility] Last Admin: 03/27/17 07:59 Dose: 81 mg Bisacodyl (Dulcolax) 10 mg RECTAL DAILY PRN PRN Reason: Constipation Docusate Sodium (Colace) 100 mg PO BID [facility] Last Admin: 03/27/17 07:59 Dose: 100 mg Admin: 03/26/17 20:08 Dose: 100 mg Famotidine (Pepcid) 40 mg IVPUSH ONARRIVE [facility] Last Admin: 03/26/17 07:09 Dose: 40 mg Famotidine (Pepcid) 40 mg PO DAILY [facility] Last Admin: 03/27/17 07:59 Dose: 40 mg Gabapentin (Neurontin) 300 mg PO TID [facility] Last Admin: 03/27/17 05:19 Dose: 300 mg Admin: 03/26/17 22:09 Dose: 300 mg Admin: 03/26/17 13:25 Dose: 300 mg Hydromorphone HCl (Dilaudid) 0.5 - 1 mg IVPUSH Q3H PRN PRN Reason: Pain Last Admin: 03/27/17 05:17 Dose: 1 mg Admin: 03/27/17 00:24 Dose: 1 mg Admin: 03/26/17 20:06 Dose: 1 mg Admin: 03/26/17 14:49 Dose: 1 mg Acetaminophen 1,000 mg/ Premix 100 mls @ 400 mls/hr IV ONARRIVE [facility] Last Admin: 03/26/17 07:07 Dose: 400 mls/hr Cefazolin Sodium/Dextrose 2 gm (/ Premix) 50 mls @ 100 mls/hr IV ONCALL [facility] Ropivacaine 49.25 ml/Epinephrine HCl 0.5 mg/Clonidine HCl 80 mcg/ Sodium Chloride 100 mls @ 50 mls/min INJECT ASDIRECTED [facility] Lactated Ringer's (Ringers, Lactated) 1,000 mls @ 100 mls/hr IV ASDIRECTED [facility] Last Admin: 03/27/17 08:01 Dose: 100 mls/hr Infusion: 03/27/17 06:20 Dose: 100 mls/hr Admin: 03/26/17 20:20 Dose: 100 mls/hr Infusion: 03/26/17 17:10 Dose: 100 mls/hr Admin: 03/26/17 07:10 Dose: 100 mls/hr Tranexamic Acid 4,000 mg/ (Sodium Chloride) 140 mls @ 600 mls/hr IV ASDIRECTED [facility] Levothyroxine Sodium (Synthroid) 200 mcg PO ACBREAKFAST [facility] Last Admin: 03/27/17 06:33 Dose: 200 mcg Losartan Potassium (Cozaar) 25 mg PO ACBRK [facility] Last Admin: 03/27/17 06:34 Dose: 25 mg Ondansetron HCl (Zofran) 4 mg IV Q6HR PRN PRN Reason: NAUSEA/VOMITING Oxycodone HCl (Oxycontin) 20 mg PO ONARRIVE [facility] Last Admin: 03/26/17 07:08 Dose: 20 mg Oxycodone HCl (Oxycodone) 5 - 10 mg PO Q4H PRN PRN Reason: Pain Last Admin: 03/27/17 03:06 Dose: 10 mg Admin: 03/26/17 22:09 Dose: 10 mg Admin: 03/26/17 17:44 Dose: 10 mg Admin: 03/26/17 14:34 Dose: 5 mg Admin: 03/26/17 13:22 Dose: 5 mg Oxycodone HCl (Oxycontin) 20 mg PO Q12HR [facility] Last Admin: 03/27/17 07:59 Dose: 20 mg Admin: 03/26/17 20:08 Dose: 20 mg Scopolamine (Transderm-Scop) 1.5 mg TRDERM ONARRIVE [facility] Last Admin: 03/26/17 07:08 Dose: 1.5 mg - Assessment Assessment (Free Text/Narrative):: POD#1 R TKA acute posthemorrhagic anemia - Plan Plan (Free Text/Narrative):: continue tejada for I&O unless hospitalist feels removal is appropriate continue IVF per hospitalist discrection continue pain management Eliquis 5mg PO daily as DVT prophylaxis PT today - may try to get pt out of bed to his tolerance appreciate hospitalist management along with cardiology service dressing change tomorrow <Tania Vicente R - Last Filed: 03/27/17 17:07> - Patient Data Vitals - Most Recent: Last Vital Signs Temp 98.7 F 03/27/17 16:47 Pulse 90 03/27/17 16:47 Resp 17 03/27/17 16:47 BP 106/62 03/27/17 16:47 Pulse Ox 92 L 03/27/17 16:47 I&O - Last 24 Hours: Intake & Output 03/27/17 03/27/17 03/27/17 06:59 14:59 22:59 Intake Total 2050 999 4050 Output Total 850 3450 Balance 1200 999 600 Lab Results Last 24 Hrs: Laboratory Results - last 24 hr 03/26/17 03/26/17 03/27/17 Range/Units 16:08 21:59 04:01 Hgb 12.5 L (13.0-17.0) g/dL Hct 36.8 L (38.0-50.0) % Sodium (136-146) mmol/L Potassium (3.5-5.1) mmol/L Chloride (98-110) mmol/L Carbon Dioxide (21-31) mmol/L BUN (6.0-23.0) mg/dL Creatinine (0.6-1.5) mg/dL Est Cr Clr Drug Dosing mL/min Estimated GFR (MDRD) ml/min Glucose (60-110) mg/dL Calcium (8.8-10.8) mg/dL Magnesium (1.5-2.3) mEq/L Troponin I 0.31 H* 0.19 (0.0-0.29) NG/ML Triglycerides (10-190) mg/dL Cholesterol (131-240) mg/dL LDL Cholesterol, Calc (60-180) mg/dL VLDL Cholesterol (5-55) mg/dL HDL Cholesterol (40-80) mg/dL Cholesterol/HDL Ratio (3.3-6.0) 03/27/17 03/27/17 Range/Units 04:01 04:01 Hgb (13.0-17.0) g/dL Hct (38.0-50.0) % Sodium 134 L (136-146) mmol/L Potassium 4.6 (3.5-5.1) mmol/L Chloride 104 (98-110) mmol/L Carbon Dioxide 24 (21-31) mmol/L BUN 18 (6.0-23.0) mg/dL Creatinine 0.8 (0.6-1.5) mg/dL Est Cr Clr Drug Dosing 122.60 mL/min Estimated GFR (MDRD) > 60.0 ml/min Glucose 117 H (60-110) mg/dL Calcium 7.9 L (8.8-10.8) mg/dL Magnesium 1.8 (1.5-2.3) mEq/L Troponin I 0.10 (0.0-0.29) NG/ML Triglycerides 81 (10-190) mg/dL Cholesterol 116 L (131-240) mg/dL LDL Cholesterol, Calc 75 (60-180) mg/dL VLDL Cholesterol 16 (5-55) mg/dL HDL Cholesterol 25 L (40-80) mg/dL Cholesterol/HDL Ratio 4.6 (3.3-6.0) Med Orders - Current: Current Medications Acetaminophen (Tylenol Extra Strength) 1,000 mg PO Q6H [facility] Last Admin: 03/27/17 12:22 Dose: 1,000 mg Al Hydroxide/Mg Hydroxide (Mag-Al Plus) 30 ml PO Q4H PRN PRN Reason: indigestion Apixaban (Eliquis) 5 mg PO DAILY [facility] Last Admin: 03/27/17 07:59 Dose: 5 mg Aspirin (Aspirin) 81 mg PO DAILY [facility] Last Admin: 03/27/17 07:59 Dose: 81 mg Bisacodyl (Dulcolax) 10 mg RECTAL DAILY PRN PRN Reason: Constipation Docusate Sodium (Colace) 100 mg PO BID [facility] Last Admin: 03/27/17 07:59 Dose: 100 mg Famotidine (Pepcid) 40 mg IVPUSH ONARRIVE [facility] Last Admin: 03/26/17 07:09 Dose: 40 mg Famotidine (Pepcid) 40 mg PO DAILY [facility] Last Admin: 03/27/17 07:59 Dose: 40 mg Gabapentin (Neurontin) 300 mg PO TID [facility] Last Admin: 03/27/17 13:07 Dose: 300 mg Hydromorphone HCl (Dilaudid) 0.5 - 1 mg IVPUSH Q3H PRN PRN Reason: Pain Last Admin: 03/27/17 13:55 Dose: 1 mg Acetaminophen 1,000 mg/ Premix 100 mls @ 400 mls/hr IV ONARRIVE [facility] Last Admin: 03/26/17 07:07 Dose: 400 mls/hr Cefazolin Sodium/Dextrose 2 gm (/ Premix) 50 mls @ 100 mls/hr IV ONCALL [facility] Ropivacaine 49.25 ml/Epinephrine HCl 0.5 mg/Clonidine HCl 80 mcg/ Sodium Chloride 100 mls @ 50 mls/min INJECT ASDIRECTED [facility] Lactated Ringer's (Ringers, Lactated) 1,000 mls @ 50 mls/hr IV ASDIRECTED [facility] Last Infusion: 03/27/17 10:30 Dose: 50 mls/hr Tranexamic Acid 4,000 mg/ (Sodium Chloride) 140 mls @ 600 mls/hr IV ASDIRECTED [facility] Levothyroxine Sodium (Synthroid) 200 mcg PO ACBREAKFAST [facility] Last Admin: 03/27/17 06:33 Dose: 200 mcg Losartan Potassium (Cozaar) 25 mg PO ACBRK [facility] Last Admin: 03/27/17 06:34 Dose: 25 mg Ondansetron HCl (Zofran) 4 mg IV Q6HR PRN PRN Reason: NAUSEA/VOMITING Oxycodone HCl (Oxycontin) 20 mg PO ONARRIVE [facility] Last Admin: 03/26/17 07:08 Dose: 20 mg Oxycodone HCl (Oxycodone) 5 - 10 mg PO Q4H PRN PRN Reason: Pain Last Admin: 03/27/17 13:07 Dose: 10 mg Oxycodone HCl (Oxycontin) 20 mg PO Q12HR [facility] Last Admin: 03/27/17 07:59 Dose: 20 mg Scopolamine (Transderm-Scop) 1.5 mg TRDERM ONARRIVE [facility] Last Admin: 03/26/17 07:08 Dose: 1.5 mg Discontinued Medications Aspirin (Aspirin) 81 mg PO ONETIME ONE Stop: 03/26/17 19:23 Last Admin: 03/26/17 20:08 Dose: 81 mg Ephedrine Sulfate (Ephedrine Sulfate) Confirm Administered Dose 50 mg .ROUTE .STK-MED ONE Stop: 03/26/17 09:37 Esmolol HCl (Esmolol) Confirm Administered Dose 100 mg .ROUTE .STK-MED ONE Stop: 03/26/17 10:47 Fentanyl (Sublimaze) Confirm Administered Dose 100 mcg .ROUTE .STK-MED ONE Stop: 03/26/17 07:23 Fentanyl (Sublimaze) Confirm Administered Dose 100 mcg .ROUTE .STK-MED ONE Stop: 03/26/17 07:28 Fentanyl (Sublimaze) 50 mcg IVPUSH Q5M PRN PRN Reason: Pain (severe 7-10) Stop: 03/27/17 08:23 Hydromorphone HCl (Dilaudid) 0 mg IVPUSH ONETIME ONE Stop: 03/26/17 08:24 Last Admin: 03/26/17 13:00 Dose: Not Given Acetaminophen (Ofirmev) Confirm Administered Dose 100 mls @ as directed IV .STK- MED ONE Stop: 03/26/17 05:46 Last Admin: 03/26/17 13:00 Dose: Not Given Acetaminophen 1,000 mg/ Premix 100 mls @ 400 mls/hr IV Q6H [facility] Stop: 03/26/17 19:14 Last Admin: 03/26/17 18:33 Dose: 400 mls/hr Cefazolin Sodium/Dextrose 2 gm (/ Premix) 50 mls @ 100 mls/hr IV Q8HR [facility] Stop: 03/27/17 06:29 Cefazolin Sodium/Dextrose 2 gm (/ Premix) 50 mls @ 100 mls/hr IV ONETIME ONE Stop: 03/26/17 12:59 Last Admin: 03/26/17 12:34 Dose: 100 mls/hr Cefazolin Sodium/Dextrose 2 gm (/ Premix) 50 mls @ 100 mls/hr IV Q8H [facility] Stop: 03/27/17 04:59 Last Admin: 03/27/17 04:11 Dose: 100 mls/hr Magnesium Sulfate 2 gm/ Premix 50 mls @ 25 mls/hr IV ONETIME ONE Stop: 03/26/17 21:52 Last Admin: 03/26/17 20:08 Dose: 50 mls/hr Lidocaine (Xylocaine-Mpf 2%) Confirm Administered Dose 10 ml .ROUTE .STK-MED ONE Stop: 03/26/17 07:22 Midazolam HCl (Versed 1 Mg/Ml) Confirm Administered Dose 2 mg .ROUTE .STK-MED ONE Stop: 03/26/17 07:23 Propofol (Diprivan 20 Ml) Confirm Administered Dose 400 mg .ROUTE .STK-MED ONE Stop: 03/26/17 07:23 Propofol (Diprivan 20 Ml) Confirm Administered Dose 200 mg .ROUTE .STK-MED ONE Stop: 03/26/17 07:32 Tranexamic Acid (Cyklokapron) Confirm Administered Dose 4,000 mg .ROUTE .STK- MED ONE Stop: 03/26/17 07:50 - My Orders Last 24 Hours: Active Orders 24 hr Category Date Time Status Transfer Patient (Change bed) [ADT] Routine ADT 03/27/17 10:38 Ordered Telemetry Monitoring [Cardiac Monitoring] [RC] Q8H Care 03/27/17 11:29 Active Consult to Physician [CONS] Routine Cons 03/27/17 09:29 Active BASIC METABOLIC PANEL,BMP [CHEM] AM Lab 03/28/17 05:11 Ordered HEMOGLOBIN/HEMATOCRIT,HH [HEME] DAILY Lab 03/28/17 06:00 Ordered HEMOGLOBIN/HEMATOCRIT,HH [HEME] DAILY Lab 03/29/17 06:00 Ordered MAGNESIUM [CHEM] AM Lab 03/28/17 05:11 Ordered MAGNESIUM [CHEM] AM Lab 03/29/17 05:11 Ordered Acetaminophen [Tylenol Extra Strength] Med 03/27/17 01:00 Active 1,000 mg PO Q6H Apixaban [Eliquis] Med 03/27/17 09:00 Active 5 mg PO DAILY Aspirin Med 03/27/17 09:00 Active 81 mg PO DAILY Docusate Sodium [Colace] Med 03/26/17 21:00 Active 100 mg PO BID Famotidine [Pepcid] Med 03/27/17 09:00 Active 40 mg PO DAILY Levothyroxine [Synthroid] Med 03/27/17 07:30 Active 200 mcg PO ACBREAKFAST Losartan [Cozaar] Med 03/27/17 07:30 Active 25 mg PO ACBRK oxyCODONE ER [OxyCONTIN] Med 03/26/17 21:00 Active 20 mg PO Q12HR Medication Orders Acetaminophen (Tylenol Extra Strength) 1,000 mg PO Q6H [facility] Last Admin: 03/27/17 12:22 Dose: 1,000 mg Admin: 03/27/17 06:31 Dose: 1,000 mg Admin: 03/27/17 00:27 Dose: 1,000 mg Al Hydroxide/Mg Hydroxide (Mag-Al Plus) 30 ml PO Q4H PRN PRN Reason: indigestion Apixaban (Eliquis) 5 mg PO DAILY [facility] Last Admin: 03/27/17 07:59 Dose: 5 mg Aspirin (Aspirin) 81 mg PO DAILY [facility] Last Admin: 03/27/17 07:59 Dose: 81 mg Bisacodyl (Dulcolax) 10 mg RECTAL DAILY PRN PRN Reason: Constipation Docusate Sodium (Colace) 100 mg PO BID [facility] Last Admin: 03/27/17 07:59 Dose: 100 mg Admin: 03/26/17 20:08 Dose: 100 mg Famotidine (Pepcid) 40 mg IVPUSH ONARRIVE [facility] Last Admin: 03/26/17 07:09 Dose: 40 mg Famotidine (Pepcid) 40 mg PO DAILY [facility] Last Admin: 03/27/17 07:59 Dose: 40 mg Gabapentin (Neurontin) 300 mg PO TID [facility] Last Admin: 03/27/17 13:07 Dose: 300 mg Admin: 03/27/17 05:19 Dose: 300 mg Admin: 03/26/17 22:09 Dose: 300 mg Admin: 03/26/17 13:25 Dose: 300 mg Hydromorphone HCl (Dilaudid) 0.5 - 1 mg IVPUSH Q3H PRN PRN Reason: Pain Last Admin: 03/27/17 13:55 Dose: 1 mg Admin: 03/27/17 10:20 Dose: 1 mg Admin: 03/27/17 05:17 Dose: 1 mg Admin: 03/27/17 00:24 Dose: 1 mg Admin: 03/26/17 20:06 Dose: 1 mg Admin: 03/26/17 14:49 Dose: 1 mg Acetaminophen 1,000 mg/ Premix 100 mls @ 400 mls/hr IV ONARRIVE [facility] Last Admin: 03/26/17 07:07 Dose: 400 mls/hr Cefazolin Sodium/Dextrose 2 gm (/ Premix) 50 mls @ 100 mls/hr IV ONCALL [facility] Ropivacaine 49.25 ml/Epinephrine HCl 0.5 mg/Clonidine HCl 80 mcg/ Sodium Chloride 100 mls @ 50 mls/min INJECT ASDIRECTED [facility] Lactated Ringer's (Ringers, Lactated) 1,000 mls @ 50 mls/hr IV ASDIRECTED [facility] Last Infusion: 03/27/17 10:30 Dose: 50 mls/hr Admin: 03/27/17 08:01 Dose: 100 mls/hr Infusion: 03/27/17 06:20 Dose: 100 mls/hr Admin: 03/26/17 20:20 Dose: 100 mls/hr Infusion: 03/26/17 17:10 Dose: 100 mls/hr Admin: 03/26/17 07:10 Dose: 100 mls/hr Tranexamic Acid 4,000 mg/ (Sodium Chloride) 140 mls @ 600 mls/hr IV ASDIRECTED [facility] Levothyroxine Sodium (Synthroid) 200 mcg PO ACBREAKFAST [facility] Last Admin: 03/27/17 06:33 Dose: 200 mcg Losartan Potassium (Cozaar) 25 mg PO ACBRK [facility] Last Admin: 03/27/17 06:34 Dose: 25 mg Ondansetron HCl (Zofran) 4 mg IV Q6HR PRN PRN Reason: NAUSEA/VOMITING Oxycodone HCl (Oxycontin) 20 mg PO ONARRIVE [facility] Last Admin: 03/26/17 07:08 Dose: 20 mg Oxycodone HCl (Oxycodone) 5 - 10 mg PO Q4H PRN PRN Reason: Pain Last Admin: 03/27/17 13:07 Dose: 10 mg Admin: 03/27/17 08:59 Dose: 10 mg Admin: 03/27/17 03:06 Dose: 10 mg Admin: 03/26/17 22:09 Dose: 10 mg Admin: 03/26/17 17:44 Dose: 10 mg Admin: 03/26/17 14:34 Dose: 5 mg Admin: 03/26/17 13:22 Dose: 5 mg Oxycodone HCl (Oxycontin) 20 mg PO Q12HR [facility] Last Admin: 03/27/17 07:59 Dose: 20 mg Admin: 03/26/17 20:08 Dose: 20 mg Scopolamine (Transderm-Scop) 1.5 mg TRDERM ONARRIVE [facility] Last Admin: 03/26/17 07:08 Dose: 1.5 mg - Plan Plan (Free Text/Narrative):: 1300 Patient seen and examined. Agree with the above note. Patient currently states his pain is well-controlled in the knee. He denies any chest pain or shortness of breath. He has been followed by both cardiology and the hospitalist. He remains in the ICU. There are plans to transfer him to the general floor today with telemetry. Patient was out of bed with physical therapy earlier today and was able to do some walking. His hemoglobin remained stable. Exam of the knee shows the dressing to be intact. He has no calf tenderness. AT/ EHL/gastroc 5/5. Sensation grossly intact. DP/PT pulses 2+. 1. Continue to increase activity as tolerated 2. Appreciate hospitalist assistance with medical management 3. Aspirin for DVT prophylaxis 4. Possible discharge home tomorrow
--- NOTE | 2017-03-27 10:27 | CONS ---
DATE OF CONSULTATION: DATE OF : 1970 PRIMARY CARE PHYSICIAN: Katina Nunez NP REASON FOR CONSULTATION: Asystole. HISTORY OF PRESENT ILLNESS: This is a 47-year-old male with history of smoking cigar and hypertension who has been admitted in the hospital for right total knee replacement on March 26, 2017. During the operation, the spinal block was done as well as a propofol was given. The patient developed hypertension with a systolic blood pressure of 80 and a heart rate of 80 to 90 as well. Then, phenylephrine was given 30 mcg twice and then the blood pressure was shooting with a systolic blood pressure of 200, brief period of time and then all of a sudden, his heart rate started to come down at the range of 20-30 and then became asystole as well as CPR was initiated as well as atropine 0.4 was given and the Ringer lactate was given as well wide open. During the CPR, he was given the atropine 0.4, as well as Marcello- Synephrine, as well as the ephedrine and epinephrine was given 1 mg and a CPR was started briefly and then his pulses resumed and he regained normal sinus rhythm, and then the operation of the total knee replacement was continued. Then, afterwards, there was no other event has been occurred and then he was transferred to the ICU. Also, for the lab work, troponin was cycled and then the second set of troponin was elevated to 0.31 and then afterwards, it started coming down to normal range. Prior to the surgery, he could not be very active due to his knee problem and he denied history of chest pain and shortness of breath. He smokes cigar once in a while. It could be every day, it could be once in 2 weeks. Denied history of diabetes or dyslipidemia. He said he has the angiogram done 4 years ago in [place] in [place] at that time because of the chest pain and he was told everything was normal. EKG also was done after the operation at this time and this remained unchanged. PAST MEDICAL HISTORY: Hypertension and arthritis. ALLERGIES: He is allergic to lisinopril, meloxicam, pseudoephedrine, and also trichosiderin. FAMILY HISTORY: No family history of CAD. SOCIAL HISTORY: He smokes cigar periodically. No alcohol, no drug use. He works in the hospital or purchasing. PHYSICAL EXAMINATION: VITAL SIGNS: Blood pressure is 114/65, O2 saturation 95 with 2 L, respirations 17, heart rate is 71. HEENT: No pallor, not jaundice, no JVD. HEART: Normal S1, S2. No murmur. LUNGS: Clear. ABDOMEN: Soft, nontender. Bowel sounds are present. No hepatosplenomegaly. EXTREMITIES: Legs, no edema. On the right knee, the swelling was wrapped up with bandage. LABORATORY INVESTIGATION: CBC showed WBC 10, hematocrit of 39, hemoglobin of 13, platelet 197. Sodium 138, potassium 5, chloride 109, bicarb 23, BUN 20, creatinine 1, magnesium 1.4. Troponin was initially negative, became positive 0.3, and then started coming down to 0.1. Total cholesterol was 116, triglycerides 81, LDL 75, HDL 25, TSH is 0.88. EKG on March 27, 2017, shows sinus rhythm, heart rate 73, NE interval 150, QRS duration 88, QTc interval 452. Very small Q-waves in lead III. No ST-segment abnormalities. Echocardiogram is still pending. ASSESSMENT AND PLAN: This is a 47-year-old male, history of smoking cigar, hypertension presented to the hospital for total knee replacement on the right side and then become bradycardiac at systole during the operation. This remained unclear what would be the cause of the event during the operation, but I think it could be multifactorial including spinal block as well as an anesthetic agent including propofol was given. Regarding the troponin elevation, it was mildly elevated and is trending down by itself, most likely demand ischemia from the event as well as CPR. He stated that he had an angiogram done 4 years ago and it was normal. It was done in [place] in [place]. I will obtain the record to verify this and then I will wait for the echo result. LALY / LORNA /[id number]
--- NOTE | 2017-03-27 10:36 | PCM.PN ---
- General Info Date of Service: 03/27/17 Subjective Update: No chest pain or dyspnea - Patient Data Vitals - Most Recent: Last Vital Signs Temp 98.3 F 03/27/17 08:00 Pulse 71 03/26/17 19:00 Resp 20 03/27/17 09:00 BP 100/72 03/27/17 09:00 Pulse Ox 93 L 03/27/17 09:00 Weight - Most Recent: 163 kg I&O - Last 24 Hours: Intake & Output 03/26/17 03/27/17 03/27/17 22:59 06:59 14:59 Intake Total 2100 2050 999 Output Total 450 850 Balance 1650 1200 999 Lab Results Last 24 Hours: Laboratory Results - last 24 hr 03/26/17 03/26/17 03/26/17 Range/Units 10:05 12:36 12:36 WBC 10.88 (4.0-11.0) K/uL RBC 4.55 (4.50-5.90) M/uL Hgb 13.5 (13.0-17.0) g/dL Hct 39.8 (38.0-50.0) % MCV 87.5 (80.0-98.0) fL MCH 29.7 (27.0-32.0) pg MCHC 33.9 (31.0-37.0) g/dL RDW Std Deviation 44.2 (28.0-62.0) fl RDW Coeff of Dora 14 (11.0-15.0) % Plt Count 197 (150-400) K/uL MPV 9.40 (7.40-12.00) fL Neut % (Auto) 83.8 H (48.0-80.0) % Lymph % (Auto) 8.5 L (16.0-40.0) % [place] % (Auto) 7.1 (0.0-15.0) % Eos % (Auto) 0.4 (0.0-7.0) % Baso % (Auto) 0.2 (0.0-1.5) % Neut # (Auto) 9.1 H (1.4-5.7) K/uL Lymph # (Auto) 0.9 (0.6-2.4) K/uL [place] # (Auto) 0.8 (0.0-0.8) K/uL Eos # (Auto) 0.0 (0.0-0.7) K/uL Baso # (Auto) 0.0 (0.0-0.1) K/uL Nucleated RBC % 0.0 /100WBC Nucleated RBCs # 0 K/uL Sodium (136-146) mmol/L Potassium (3.5-5.1) mmol/L Chloride (98-110) mmol/L Carbon Dioxide (21-31) mmol/L BUN (6.0-23.0) mg/dL Creatinine (0.6-1.5) mg/dL Est Cr Clr Drug Dosing mL/min Estimated GFR (MDRD) ml/min Glucose (60-110) mg/dL Calcium (8.8-10.8) mg/dL Magnesium (1.5-2.3) mEq/L Total Bilirubin (0.1-1.5) mg/dL AST (5-40) IU/L ALT (8-54) IU/L Alkaline Phosphatase (40-150) Creatine Kinase 135 (9-236) IU/L Troponin I < 0.10 (0.0-0.29) NG/ML Total Protein (6.0-8.0) g/dL Albumin (3.5-5.0) g/dL Globulin (2.0-3.5) g/dL Albumin/Globulin Ratio Triglycerides (10-190) mg/dL Cholesterol (131-240) mg/dL LDL Cholesterol, Calc (60-180) mg/dL VLDL Cholesterol (5-55) mg/dL HDL Cholesterol (40-80) mg/dL Cholesterol/HDL Ratio (3.3-6.0) TSH 3rd Generation 0.88 (0.47-5.0) uIU/mL 03/26/17 03/26/17 03/26/17 Range/Units 12:36 16:08 21:59 WBC (4.0-11.0) K/uL RBC (4.50-5.90) M/uL Hgb (13.0-17.0) g/dL Hct (38.0-50.0) % MCV (80.0-98.0) fL MCH (27.0-32.0) pg MCHC (31.0-37.0) g/dL RDW Std Deviation (28.0-62.0) fl RDW Coeff of Dora (11.0-15.0) % Plt Count (150-400) K/uL MPV (7.40-12.00) fL Neut % (Auto) (48.0-80.0) % Lymph % (Auto) (16.0-40.0) % [place] % (Auto) (0.0-15.0) % Eos % (Auto) (0.0-7.0) % Baso % (Auto) (0.0-1.5) % Neut # (Auto) (1.4-5.7) K/uL Lymph # (Auto) (0.6-2.4) K/uL [place] # (Auto) (0.0-0.8) K/uL Eos # (Auto) (0.0-0.7) K/uL Baso # (Auto) (0.0-0.1) K/uL Nucleated RBC % /100WBC Nucleated RBCs # K/uL Sodium 138 (136-146) mmol/L Potassium 5.0 (3.5-5.1) mmol/L Chloride 109 (98-110) mmol/L Carbon Dioxide 23 (21-31) mmol/L BUN 20 (6.0-23.0) mg/dL Creatinine 1.0 (0.6-1.5) mg/dL Est Cr Clr Drug Dosing 98.08 mL/min Estimated GFR (MDRD) > 60.0 ml/min Glucose 106 (60-110) mg/dL Calcium 8.0 L (8.8-10.8) mg/dL Magnesium 1.4 L (1.5-2.3) mEq/L Total Bilirubin 0.3 (0.1-1.5) mg/dL AST 36 (5-40) IU/L ALT 49 (8-54) IU/L Alkaline Phosphatase 35 L (40-150) Creatine Kinase (9-236) IU/L Troponin I 0.31 H* 0.19 (0.0-0.29) NG/ML Total Protein 5.6 L (6.0-8.0) g/dL Albumin 3.2 L (3.5-5.0) g/dL Globulin 2.4 (2.0-3.5) g/dL Albumin/Globulin Ratio 1.33 Triglycerides (10-190) mg/dL Cholesterol (131-240) mg/dL LDL Cholesterol, Calc (60-180) mg/dL VLDL Cholesterol (5-55) mg/dL HDL Cholesterol (40-80) mg/dL Cholesterol/HDL Ratio (3.3-6.0) TSH 3rd Generation (0.47-5.0) uIU/mL 03/27/17 03/27/17 03/27/17 Range/Units 04:01 04:01 04:01 WBC (4.0-11.0) K/uL RBC (4.50-5.90) M/uL Hgb 12.5 L (13.0-17.0) g/dL Hct 36.8 L (38.0-50.0) % MCV (80.0-98.0) fL MCH (27.0-32.0) pg MCHC (31.0-37.0) g/dL RDW Std Deviation (28.0-62.0) fl RDW Coeff of Dora (11.0-15.0) % Plt Count (150-400) K/uL MPV (7.40-12.00) fL Neut % (Auto) (48.0-80.0) % Lymph % (Auto) (16.0-40.0) % [place] % (Auto) (0.0-15.0) % Eos % (Auto) (0.0-7.0) % Baso % (Auto) (0.0-1.5) % Neut # (Auto) (1.4-5.7) K/uL Lymph # (Auto) (0.6-2.4) K/uL [place] # (Auto) (0.0-0.8) K/uL Eos # (Auto) (0.0-0.7) K/uL Baso # (Auto) (0.0-0.1) K/uL Nucleated RBC % /100WBC Nucleated RBCs # K/uL Sodium 134 L (136-146) mmol/L Potassium 4.6 (3.5-5.1) mmol/L Chloride 104 (98-110) mmol/L Carbon Dioxide 24 (21-31) mmol/L BUN 18 (6.0-23.0) mg/dL Creatinine 0.8 (0.6-1.5) mg/dL Est Cr Clr Drug Dosing 122.60 mL/min Estimated GFR (MDRD) > 60.0 ml/min Glucose 117 H (60-110) mg/dL Calcium 7.9 L (8.8-10.8) mg/dL Magnesium 1.8 (1.5-2.3) mEq/L Total Bilirubin (0.1-1.5) mg/dL AST (5-40) IU/L ALT (8-54) IU/L Alkaline Phosphatase (40-150) Creatine Kinase (9-236) IU/L Troponin I 0.10 (0.0-0.29) NG/ML Total Protein (6.0-8.0) g/dL Albumin (3.5-5.0) g/dL Globulin (2.0-3.5) g/dL Albumin/Globulin Ratio Triglycerides 81 (10-190) mg/dL Cholesterol 116 L (131-240) mg/dL LDL Cholesterol, Calc 75 (60-180) mg/dL VLDL Cholesterol 16 (5-55) mg/dL HDL Cholesterol 25 L (40-80) mg/dL Cholesterol/HDL Ratio 4.6 (3.3-6.0) TSH 3rd Generation (0.47-5.0) uIU/mL Med Orders - Current: Current Medications Acetaminophen (Tylenol Extra Strength) 1,000 mg PO Q6H [facility] Last Admin: 03/27/17 06:31 Dose: 1,000 mg Al Hydroxide/Mg Hydroxide (Mag-Al Plus) 30 ml PO Q4H PRN PRN Reason: indigestion Apixaban (Eliquis) 5 mg PO DAILY [facility] Last Admin: 03/27/17 07:59 Dose: 5 mg Aspirin (Aspirin) 81 mg PO DAILY [facility] Last Admin: 03/27/17 07:59 Dose: 81 mg Bisacodyl (Dulcolax) 10 mg RECTAL DAILY PRN PRN Reason: Constipation Docusate Sodium (Colace) 100 mg PO BID [facility] Last Admin: 03/27/17 07:59 Dose: 100 mg Famotidine (Pepcid) 40 mg IVPUSH ONARRIVE [facility] Last Admin: 03/26/17 07:09 Dose: 40 mg Famotidine (Pepcid) 40 mg PO DAILY [facility] Last Admin: 03/27/17 07:59 Dose: 40 mg Gabapentin (Neurontin) 300 mg PO TID [facility] Last Admin: 03/27/17 05:19 Dose: 300 mg Hydromorphone HCl (Dilaudid) 0.5 - 1 mg IVPUSH Q3H PRN PRN Reason: Pain Last Admin: 03/27/17 10:20 Dose: 1 mg Acetaminophen 1,000 mg/ Premix 100 mls @ 400 mls/hr IV ONARRIVE [facility] Last Admin: 03/26/17 07:07 Dose: 400 mls/hr Cefazolin Sodium/Dextrose 2 gm (/ Premix) 50 mls @ 100 mls/hr IV ONCALL [facility] Ropivacaine 49.25 ml/Epinephrine HCl 0.5 mg/Clonidine HCl 80 mcg/ Sodium Chloride 100 mls @ 50 mls/min INJECT ASDIRECTED [facility] Lactated Ringer's (Ringers, Lactated) 1,000 mls @ 100 mls/hr IV ASDIRECTED [facility] Last Admin: 03/27/17 08:01 Dose: 100 mls/hr Tranexamic Acid 4,000 mg/ (Sodium Chloride) 140 mls @ 600 mls/hr IV ASDIRECTED [facility] Levothyroxine Sodium (Synthroid) 200 mcg PO ACBREAKFAST [facility] Last Admin: 03/27/17 06:33 Dose: 200 mcg Losartan Potassium (Cozaar) 25 mg PO ACBRK [facility] Last Admin: 03/27/17 06:34 Dose: 25 mg Ondansetron HCl (Zofran) 4 mg IV Q6HR PRN PRN Reason: NAUSEA/VOMITING Oxycodone HCl (Oxycontin) 20 mg PO ONARRIVE [facility] Last Admin: 03/26/17 07:08 Dose: 20 mg Oxycodone HCl (Oxycodone) 5 - 10 mg PO Q4H PRN PRN Reason: Pain Last Admin: 03/27/17 08:59 Dose: 10 mg Oxycodone HCl (Oxycontin) 20 mg PO Q12HR [facility] Last Admin: 03/27/17 07:59 Dose: 20 mg Scopolamine (Transderm-Scop) 1.5 mg TRDERM ONARRIVE [facility] Last Admin: 03/26/17 07:08 Dose: 1.5 mg Discontinued Medications Aspirin (Aspirin) 81 mg PO ONETIME ONE Stop: 03/26/17 19:23 Last Admin: 03/26/17 20:08 Dose: 81 mg Ephedrine Sulfate (Ephedrine Sulfate) Confirm Administered Dose 50 mg .ROUTE .STK-MED ONE Stop: 03/26/17 09:37 Esmolol HCl (Esmolol) Confirm Administered Dose 100 mg .ROUTE .STK-MED ONE Stop: 03/26/17 10:47 Fentanyl (Sublimaze) Confirm Administered Dose 100 mcg .ROUTE .STK-MED ONE Stop: 03/26/17 07:23 Fentanyl (Sublimaze) Confirm Administered Dose 100 mcg .ROUTE .STK-MED ONE Stop: 03/26/17 07:28 Fentanyl (Sublimaze) 50 mcg IVPUSH Q5M PRN PRN Reason: Pain (severe 7-10) Stop: 03/27/17 08:23 Hydromorphone HCl (Dilaudid) 0 mg IVPUSH ONETIME ONE Stop: 03/26/17 08:24 Last Admin: 03/26/17 13:00 Dose: Not Given Acetaminophen (Ofirmev) Confirm Administered Dose 100 mls @ as directed IV .STK- MED ONE Stop: 03/26/17 05:46 Last Admin: 03/26/17 13:00 Dose: Not Given Acetaminophen 1,000 mg/ Premix 100 mls @ 400 mls/hr IV Q6H [facility] Stop: 03/26/17 19:14 Last Admin: 03/26/17 18:33 Dose: 400 mls/hr Cefazolin Sodium/Dextrose 2 gm (/ Premix) 50 mls @ 100 mls/hr IV Q8HR [facility] Stop: 03/27/17 06:29 Cefazolin Sodium/Dextrose 2 gm (/ Premix) 50 mls @ 100 mls/hr IV ONETIME ONE Stop: 03/26/17 12:59 Last Admin: 03/26/17 12:34 Dose: 100 mls/hr Cefazolin Sodium/Dextrose 2 gm (/ Premix) 50 mls @ 100 mls/hr IV Q8H [facility] Stop: 03/27/17 04:59 Last Admin: 03/27/17 04:11 Dose: 100 mls/hr Magnesium Sulfate 2 gm/ Premix 50 mls @ 25 mls/hr IV ONETIME ONE Stop: 03/26/17 21:52 Last Admin: 03/26/17 20:08 Dose: 50 mls/hr Lidocaine (Xylocaine-Mpf 2%) Confirm Administered Dose 10 ml .ROUTE .STK-MED ONE Stop: 03/26/17 07:22 Midazolam HCl (Versed 1 Mg/Ml) Confirm Administered Dose 2 mg .ROUTE .STK-MED ONE Stop: 03/26/17 07:23 Propofol (Diprivan 20 Ml) Confirm Administered Dose 400 mg .ROUTE .STK-MED ONE Stop: 03/26/17 07:23 Propofol (Diprivan 20 Ml) Confirm Administered Dose 200 mg .ROUTE .STK-MED ONE Stop: 03/26/17 07:32 Tranexamic Acid (Cyklokapron) Confirm Administered Dose 4,000 mg .ROUTE .STK- MED ONE Stop: 03/26/17 07:50 - Exam General: Alert, Oriented, Cooperative Lungs: Clear to Auscultation, Normal Respiratory Effort Cardiovascular: Regular Rate, Regular Rhythm Physical Findings Comments:: EKG: NSR - Problem List & Annotations (1) Cardiac arrest SNOMED Code(s): 362423323 Code(s): I46.9 - CARDIAC ARREST, CAUSE UNSPECIFIED Status: Acute Current Visit: Yes (2) Status post right knee replacement SNOMED Code(s): 168599457, 976225654 Code(s): Z96.651 - PRESENCE OF RIGHT ARTIFICIAL KNEE JOINT Status: Acute Current Visit: Yes (3) Status post knee replacement SNOMED Code(s): 781582555 Code(s): Z96.659 - PRESENCE OF UNSPECIFIED ARTIFICIAL KNEE JOINT Status: Acute Current Visit: Yes (4) History of chronic hypertension SNOMED Code(s): 176146015 Code(s): Z86.79 - PERSONAL HISTORY OF OTHER DISEASES OF THE CIRCULATORY SYSTEM Status: Acute Current Visit: Yes - Problem List Review Problem List Initiated/Reviewed/Updated: Yes - My Orders Last 24 Hours: My Active Orders 03/26/17 11:34 Echo 2D wo Cont [US] Urgent 03/27/17 07:00 EKG Documentation Completion [RC] AM 03/27/17 09:00 Aspirin 81 mg PO DAILY 03/27/17 09:29 Consult to Physician [CONS] Routine 03/27/17 09:30 Notify Provider Consults [RC] ASDIRECTED 03/28/17 05:11 BASIC METABOLIC PANEL,BMP [CHEM] AM MAGNESIUM [CHEM] AM 03/29/17 05:11 MAGNESIUM [CHEM] AM - Plan Plan:: 03/27/2017 I reviewed cardiology and orthopedic notes. last troponin normal will transfer to floor on telemetry Omar Martinez MD
--- NOTE | 2017-03-27 11:09 | OR ---
SURGEON: Tania Vicente MD DATE OF PROCEDURE: 03/26/2017 PREOPERATIVE DIAGNOSIS: Degenerative joint disease, right knee, tricompartmental. POSTOPERATIVE DIAGNOSIS: Degenerative joint disease, right knee, tricompartmental. PROCEDURE: Right total knee arthroplasty using patient-specific instrumentation. STERILE INSTRUMENT TECHNICIAN: Mary Grace Marcelo PA-C and Dwain Oropeza PA-C. ANESTHESIA: Spinal and general. ESTIMATED BLOOD LOSS: 100 mL. TOURNIQUET TIME: 65 minutes. COMPLICATIONS: Patient became unresponsive during procedure and required CPR due to no pulse. Chest compressions started and pulse returned. For complete description, please refer to anesthesia record. DVT PROPHYLAXIS: PAS boot and ELIA hose to the nonoperative leg. IMPLANTS USED: Genaro Persona femoral component size 10 standard (LPS), tibial component size G, 10 mm all-polyethylene articular surface, and 38 mm all-polyethylene patella. 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 Mild osteophyte formation was also noted. BRIEF HISTORY: Ward is a 47-year-old male, who has had complaint of progressive right knee pain. He had failed conservative treatment. Arthroscopy did show evidence of grade 4 chondromalacia in the medial as well as patellofemoral compartments. Due to his lack of response to conservative treatment, I did recommend surgical intervention. The risks and goals of procedure were discussed with the patient and were documented preoperatively. He agreed to proceed. DESCRIPTION OF PROCEDURE: The patient was properly identified and brought to the operating room. The patient was then transferred from the operating room cart and placed on the operating table in a supine position. Anesthesia was administered by the anesthesia staff. After adequate anesthesia was obtained, a well-padded tourniquet was applied to the surgical lower extremity. Curiel catheter was placed. The lower extremity was then prepped in standard fashion using ChloraPrep solution. It was then sterilely draped. A time-out was performed to ensure correct site and procedure. Preoperative antibiotics were given along with one gram of tranexamic acid IV. The surgical site had been marked preoperatively. An Esmarch was used to exsanguinate the right lower extremity and the tourniquet was inflated. An incision was made over the anterior aspect of the knee. The subcutaneous tissues were dissected down to the level of the fascia. A medial parapatellar approach to the knee was made. A portion of the infrapatellar fat pad was then excised. The distal femur was then exposed. The femoral patient-specific cutting guide was then placed. Pins were also placed. The distal femoral cutting block was placed and the distal femoral cut was made. Instrumentation was then removed. Anesthesia then informed me that he no longer had a pulse. We wrapped the knee with sterile drape and chest compressions were started. His pulse returned with adequate BP. I was informed that we could restart the case. The leg was redraped with new sterile drapes. All involved changed their gown/ gloves and the procedure was resumed. The tourniquet was not deflated during the resuscitation. Both Whitesides' line and the epicondylar axis were then marked with electrocautery. The 4-in-1 cutting block was placed. This was placed in a slightly externally rotated position, which corresponded well with the previously drawn lines. The cutting guide was then pinned into position. An Yaya wing guide was used to check the depth of resection of our anterior condylar cut and it was felt that no notching would occur. The anterior condylar cut was then made followed by the posterior condylar cut. Both the posterior chamfer and anterior chamfer cuts were then made. The cutting block was then removed along with the excess bony remnants. We then turned our attention to the tibia. The anterior cruciate ligament and posterior cruciate ligament were released and a posterior cruciate ligament retractor was placed to allow the tibia to be pulled anteriorly. The tibial patient-specific guide was then placed on the proximal tibia. This fit anatomically. The pins were then placed. The proximal tibia cutting guide was then placed and screwed into position. The proximal tibial resection was then made with care being taken to protect the patellar tendon. The bony resection was then removed. The remainder of the medial and lateral meniscus were then excised. Care was taken to protect the popliteus tendon. The tibia was then sized to the appropriate size. The distal femur was then elevated. The posterior capsule was stripped off of the distal femur both medially and laterally. The posterior capsule along with the medial and lateral gutters were then injected with a standard mixture consisting of clonidine, epinephrine, Toradol, and Ropivacaine, unless any allergies were found preoperatively. The femoral component was then placed onto the distal femur in a slightly lateral position. This fit the femur well. A box cut was then made without difficulty. This was then removed. The tibial trial along with the polyethylene liner was then placed. The knee came easily into full extension and was stable to varus and valgus stressing both in full extension and flexion. Any additional releases were performed at this time. We then returned our attention to the patella. The patella was everted and towel clamps were used to hold the patella in position. It was resected to a 15 millimeter thickness. It was then sized to the appropriate size. It was prepared in the usual fashion after placing the predetermined size clamps. This was placed in a slightly superior and medial position. The clamp was then removed. The patellar trial button was placed. The knee was taken through a range of motion using the no-touch technique. The patella tracked centrally. A drop cuca was then placed to check alignment. All instruments were then removed from the knee. The tibial sizer was then placed on the tibia. The tibia was prepared in the usual fashion using the reamer and broach. This was then removed. All bony surfaces were copiously irrigated with Pulsavac solution. They were then suctioned dry. Cement was prepared on the back table in the usual manner. Once it was prepared, the bone ends were again suctioned dry. The tibia was cemented into place first. This was malleted into position. Excess cement was then cleared. The femur was then placed in a similar manner. We placed the polyethylene trial into place and the knee was brought into full extension. An axial load was placed while keeping the knee in full extension. The patella button was also cemented into position and the clamp was used to hold this in place as the cement was allowed to cure. The wound was again copiously irrigated with saline solution using a Pulsavac glass crusher. Following this 1 g of tranexamic acid was applied to the wound topically. After we had adequate curing of the cement, the knee was again taken through a range of motion. The size of the polyethylene was then determined. The polyethylene trial was then removed. The tibial tray was suctioned to make sure there was no remaining soft tissue or cement. Excess cement was cleared from around the edges of the prosthesis as well. The tourniquet was then deflated. We were able to observe for any excess bleeding and none was noted. Electrocautery was used to maintain hemostasis. An additional gram of tranexamic acid was given IV. The retractors were again placed and the predetermined polyethylene was then placed. This was locked into position without difficulty. The knee was again taken through a range of motion with no change from the prior exam. The fascial layer was closed with Number One Vicryl. The subcutaneous tissues were closed with 2-0 Vicryl. The skin was closed with daren. Xeroform gauze was placed over the wound and a bulky dressing was applied. The patient was then awakened from anesthesia and transferred back to the operating room cart. They were brought to the recovery room in stable condition. All needle and sponge counts were correct. ALLA / LORNA /[id number] MTDD
[2017-03-28] MEDS: Acetaminophen 500 MG Tab PO SCH ×2 (01:33→06:34)
[2017-03-28] MEDS: oxyCODONE 5 MG Tab PO PRN ×3 (01:34→10:37)
[2017-03-28 05:38] LABS: CHLORIDE,CL 106 mmol/L (98-110); SODIUM,NA 138 mmol/L (136-146)
[2017-03-28] MEDS: Levothyroxine 100 MCG Tab PO SCH (06:33)
[2017-03-28] MEDS: Gabapentin 300 MG Cap PO SCH (06:33)
[2017-03-28] MEDS: Losartan 50 MG Tab PO SCH (06:45)
[2017-03-28] MEDS: Aspirin 81 MG Tab.Chew PO SCH (08:17)
[2017-03-28] MEDS: Docusate Sodium 100 MG Cap PO SCH (08:17)
[2017-03-28] MEDS: Famotidine 20 MG Tab PO SCH (08:17)
[2017-03-28] MEDS: oxyCODONE ER 20 MG TAB.ER PO SCH (08:17)
[2017-03-28] MEDS: Apixaban 5 MG Tab PO SCH (08:17)
[2017-03-28 08:24] VITALS: BP 134/78
--- NOTE | 2017-03-28 09:19 | PCM.SURGPN ---
<Tania Vicente R - Last Filed: 03/28/17 09:30> - Patient Data Vitals - Most Recent: Last Vital Signs Temp 96.3 F 03/28/17 08:00 Pulse 111 H 03/28/17 08:00 Resp 17 03/28/17 08:00 BP 134/78 03/28/17 08:00 Pulse Ox 92 L 03/28/17 08:00 I&O - Last 24 Hours: Intake & Output 03/27/17 03/28/17 03/28/17 22:59 06:59 14:59 Intake Total 4050 1300 Output Total 3450 2800 Balance 600 -1500 Lab Results Last 24 Hrs: Laboratory Results - last 24 hr 03/28/17 03/28/17 Range/Units 04:58 04:58 Hgb 11.6 L (13.0-17.0) g/dL Hct 34.3 L (38.0-50.0) % Sodium 138 (136-146) mmol/L Potassium 4.4 (3.5-5.1) mmol/L Chloride 106 (98-110) mmol/L Carbon Dioxide 27 (21-31) mmol/L BUN 10 (6.0-23.0) mg/dL Creatinine 0.8 (0.6-1.5) mg/dL Est Cr Clr Drug Dosing 122.77 mL/min Estimated GFR (MDRD) > 60.0 ml/min Glucose 101 (60-110) mg/dL Calcium 8.3 L (8.8-10.8) mg/dL Magnesium 1.6 (1.5-2.3) mEq/L Med Orders - Current: Current Medications Acetaminophen (Tylenol Extra Strength) 1,000 mg PO Q6H [facility] Last Admin: 03/28/17 06:34 Dose: 1,000 mg Al Hydroxide/Mg Hydroxide (Mag-Al Plus) 30 ml PO Q4H PRN PRN Reason: indigestion Apixaban (Eliquis) 5 mg PO DAILY [facility] Last Admin: 03/28/17 08:17 Dose: 5 mg Aspirin (Aspirin) 81 mg PO DAILY [facility] Last Admin: 03/28/17 08:17 Dose: 81 mg Bisacodyl (Dulcolax) 10 mg RECTAL DAILY PRN PRN Reason: Constipation Docusate Sodium (Colace) 100 mg PO BID [facility] Last Admin: 03/28/17 08:17 Dose: 100 mg Famotidine (Pepcid) 40 mg IVPUSH ONARRIVE [facility] Last Admin: 03/26/17 07:09 Dose: 40 mg Famotidine (Pepcid) 40 mg PO DAILY [facility] Last Admin: 03/28/17 08:17 Dose: 40 mg Gabapentin (Neurontin) 300 mg PO TID [facility] Last Admin: 03/28/17 06:33 Dose: 300 mg Hydromorphone HCl (Dilaudid) 0.5 - 1 mg IVPUSH Q3H PRN PRN Reason: Pain Last Admin: 03/27/17 13:55 Dose: 1 mg Acetaminophen 1,000 mg/ Premix 100 mls @ 400 mls/hr IV ONARRIVE [facility] Last Admin: 03/26/17 07:07 Dose: 400 mls/hr Cefazolin Sodium/Dextrose 2 gm (/ Premix) 50 mls @ 100 mls/hr IV ONCALL [facility] Ropivacaine 49.25 ml/Epinephrine HCl 0.5 mg/Clonidine HCl 80 mcg/ Sodium Chloride 100 mls @ 50 mls/min INJECT ASDIRECTED [facility] Tranexamic Acid 4,000 mg/ (Sodium Chloride) 140 mls @ 600 mls/hr IV ASDIRECTED [facility] Levothyroxine Sodium (Synthroid) 200 mcg PO ACBREAKFAST [facility] Last Admin: 03/28/17 06:33 Dose: 200 mcg Losartan Potassium (Cozaar) 25 mg PO ACBRK [facility] Last Admin: 03/28/17 06:45 Dose: Not Given Ondansetron HCl (Zofran) 4 mg IV Q6HR PRN PRN Reason: NAUSEA/VOMITING Oxycodone HCl (Oxycontin) 20 mg PO ONARRIVE [facility] Last Admin: 03/26/17 07:08 Dose: 20 mg Oxycodone HCl (Oxycodone) 5 - 10 mg PO Q4H PRN PRN Reason: Pain Last Admin: 03/28/17 06:35 Dose: 10 mg Oxycodone HCl (Oxycontin) 20 mg PO Q12HR [facility] Last Admin: 03/28/17 08:17 Dose: 20 mg Scopolamine (Transderm-Scop) 1.5 mg TRDERM ONARRIVE [facility] Last Admin: 03/26/17 07:08 Dose: 1.5 mg Discontinued Medications Aspirin (Aspirin) 81 mg PO ONETIME ONE Stop: 03/26/17 19:23 Last Admin: 03/26/17 20:08 Dose: 81 mg Ephedrine Sulfate (Ephedrine Sulfate) Confirm Administered Dose 50 mg .ROUTE .STK-MED ONE Stop: 03/26/17 09:37 Esmolol HCl (Esmolol) Confirm Administered Dose 100 mg .ROUTE .STK-MED ONE Stop: 03/26/17 10:47 Fentanyl (Sublimaze) Confirm Administered Dose 100 mcg .ROUTE .STK-MED ONE Stop: 03/26/17 07:23 Fentanyl (Sublimaze) Confirm Administered Dose 100 mcg .ROUTE .STK-MED ONE Stop: 03/26/17 07:28 Fentanyl (Sublimaze) 50 mcg IVPUSH Q5M PRN PRN Reason: Pain (severe 7-10) Stop: 03/27/17 08:23 Hydromorphone HCl (Dilaudid) 0 mg IVPUSH ONETIME ONE Stop: 03/26/17 08:24 Last Admin: 03/26/17 13:00 Dose: Not Given Lactated Ringer's (Ringers, Lactated) 1,000 mls @ 50 mls/hr IV ASDIRECTED [facility] Last Infusion: 03/27/17 10:30 Dose: 50 mls/hr Acetaminophen (Ofirmev) Confirm Administered Dose 100 mls @ as directed IV .STK- MED ONE Stop: 03/26/17 05:46 Last Admin: 03/26/17 13:00 Dose: Not Given Acetaminophen 1,000 mg/ Premix 100 mls @ 400 mls/hr IV Q6H [facility] Stop: 03/26/17 19:14 Last Admin: 03/26/17 18:33 Dose: 400 mls/hr Cefazolin Sodium/Dextrose 2 gm (/ Premix) 50 mls @ 100 mls/hr IV Q8HR [facility] Stop: 03/27/17 06:29 Cefazolin Sodium/Dextrose 2 gm (/ Premix) 50 mls @ 100 mls/hr IV ONETIME ONE Stop: 03/26/17 12:59 Last Admin: 03/26/17 12:34 Dose: 100 mls/hr Cefazolin Sodium/Dextrose 2 gm (/ Premix) 50 mls @ 100 mls/hr IV Q8H [facility] Stop: 03/27/17 04:59 Last Admin: 03/27/17 04:11 Dose: 100 mls/hr Magnesium Sulfate 2 gm/ Premix 50 mls @ 25 mls/hr IV ONETIME ONE Stop: 03/26/17 21:52 Last Admin: 03/26/17 20:08 Dose: 50 mls/hr Lidocaine (Xylocaine-Mpf 2%) Confirm Administered Dose 10 ml .ROUTE .STK-MED ONE Stop: 03/26/17 07:22 Midazolam HCl (Versed 1 Mg/Ml) Confirm Administered Dose 2 mg .ROUTE .STK-MED ONE Stop: 03/26/17 07:23 Propofol (Diprivan 20 Ml) Confirm Administered Dose 400 mg .ROUTE .STK-MED ONE Stop: 03/26/17 07:23 Propofol (Diprivan 20 Ml) Confirm Administered Dose 200 mg .ROUTE .STK-MED ONE Stop: 03/26/17 07:32 Tranexamic Acid (Cyklokapron) Confirm Administered Dose 4,000 mg .ROUTE .STK- MED ONE Stop: 03/26/17 07:50 - My Orders Last 24 Hours: Active Orders 24 hr Category Date Time Status Transfer Patient (Change bed) [ADT] Routine ADT 03/27/17 10:38 Ordered Communication Order [RC] ROUTINE Care 03/28/17 08:56 Active Ready for Discharge [RC] PER UNIT ROUTINE Care 03/28/17 09:19 Active Telemetry Monitoring [Cardiac Monitoring] [RC] Q8H Care 03/27/17 11:29 Active Consult to Physician [CONS] Routine Cons 03/27/17 09:29 Active HEMOGLOBIN/HEMATOCRIT,HH [HEME] DAILY Lab 03/29/17 06:00 Ordered MAGNESIUM [CHEM] AM Lab 03/29/17 05:11 Ordered Apixaban [Eliquis] Med 03/27/17 09:00 Active 5 mg PO DAILY Aspirin Med 03/27/17 09:00 Active 81 mg PO DAILY Famotidine [Pepcid] Med 03/27/17 09:00 Active 40 mg PO DAILY Medication Orders Acetaminophen (Tylenol Extra Strength) 1,000 mg PO Q6H [facility] Last Admin: 03/28/17 06:34 Dose: 1,000 mg Admin: 03/28/17 01:33 Dose: 1,000 mg Admin: 03/27/17 18:39 Dose: 1,000 mg Admin: 03/27/17 12:22 Dose: 1,000 mg Admin: 03/27/17 06:31 Dose: 1,000 mg Admin: 03/27/17 00:27 Dose: 1,000 mg Al Hydroxide/Mg Hydroxide (Mag-Al Plus) 30 ml PO Q4H PRN PRN Reason: indigestion Apixaban (Eliquis) 5 mg PO DAILY [facility] Last Admin: 03/28/17 08:17 Dose: 5 mg Admin: 03/27/17 07:59 Dose: 5 mg Aspirin (Aspirin) 81 mg PO DAILY [facility] Last Admin: 03/28/17 08:17 Dose: 81 mg Admin: 03/27/17 07:59 Dose: 81 mg Bisacodyl (Dulcolax) 10 mg RECTAL DAILY PRN PRN Reason: Constipation Docusate Sodium (Colace) 100 mg PO BID [facility] Last Admin: 03/28/17 08:17 Dose: 100 mg Admin: 03/27/17 21:10 Dose: 100 mg Admin: 03/27/17 07:59 Dose: 100 mg Admin: 03/26/17 20:08 Dose: 100 mg Famotidine (Pepcid) 40 mg IVPUSH ONARRIVE [facility] Last Admin: 03/26/17 07:09 Dose: 40 mg Famotidine (Pepcid) 40 mg PO DAILY [facility] Last Admin: 03/28/17 08:17 Dose: 40 mg Admin: 03/27/17 07:59 Dose: 40 mg Gabapentin (Neurontin) 300 mg PO TID [facility] Last Admin: 03/28/17 06:33 Dose: 300 mg Admin: 03/27/17 21:11 Dose: 300 mg Admin: 03/27/17 13:07 Dose: 300 mg Admin: 03/27/17 05:19 Dose: 300 mg Admin: 03/26/17 22:09 Dose: 300 mg Admin: 03/26/17 13:25 Dose: 300 mg Hydromorphone HCl (Dilaudid) 0.5 - 1 mg IVPUSH Q3H PRN PRN Reason: Pain Last Admin: 03/27/17 13:55 Dose: 1 mg Admin: 03/27/17 10:20 Dose: 1 mg Admin: 03/27/17 05:17 Dose: 1 mg Admin: 03/27/17 00:24 Dose: 1 mg Admin: 03/26/17 20:06 Dose: 1 mg Admin: 03/26/17 14:49 Dose: 1 mg Acetaminophen 1,000 mg/ Premix 100 mls @ 400 mls/hr IV ONARRIVE [facility] Last Admin: 03/26/17 07:07 Dose: 400 mls/hr Cefazolin Sodium/Dextrose 2 gm (/ Premix) 50 mls @ 100 mls/hr IV ONCALL [facility] Ropivacaine 49.25 ml/Epinephrine HCl 0.5 mg/Clonidine HCl 80 mcg/ Sodium Chloride 100 mls @ 50 mls/min INJECT ASDIRECTED [facility] Tranexamic Acid 4,000 mg/ (Sodium Chloride) 140 mls @ 600 mls/hr IV ASDIRECTED [facility] Levothyroxine Sodium (Synthroid) 200 mcg PO ACBREAKFAST [facility] Last Admin: 03/28/17 06:33 Dose: 200 mcg Admin: 03/27/17 06:33 Dose: 200 mcg Losartan Potassium (Cozaar) 25 mg PO ACBRK [facility] Last Admin: 03/28/17 06:45 Dose: Admin: 03/27/17 06:34 Dose: 25 mg Ondansetron HCl (Zofran) 4 mg IV Q6HR PRN PRN Reason: NAUSEA/VOMITING Oxycodone HCl (Oxycontin) 20 mg PO ONARRIVE [facility] Last Admin: 03/26/17 07:08 Dose: 20 mg Oxycodone HCl (Oxycodone) 5 - 10 mg PO Q4H PRN PRN Reason: Pain Last Admin: 03/28/17 06:35 Dose: 10 mg Admin: 03/28/17 01:34 Dose: 10 mg Admin: 03/27/17 21:15 Dose: 10 mg Admin: 03/27/17 17:14 Dose: 10 mg Admin: 03/27/17 13:07 Dose: 10 mg Admin: 03/27/17 08:59 Dose: 10 mg Admin: 03/27/17 03:06 Dose: 10 mg Admin: 03/26/17 22:09 Dose: 10 mg Admin: 03/26/17 17:44 Dose: 10 mg Admin: 03/26/17 14:34 Dose: 5 mg Admin: 03/26/17 13:22 Dose: 5 mg Oxycodone HCl (Oxycontin) 20 mg PO Q12HR [facility] Last Admin: 03/28/17 08:17 Dose: 20 mg Admin: 03/27/17 21:10 Dose: 20 mg Admin: 03/27/17 07:59 Dose: 20 mg Admin: 03/26/17 20:08 Dose: 20 mg Scopolamine (Transderm-Scop) 1.5 mg KAMALADERM ONARRIVE [facility] Last Admin: 03/26/17 07:08 Dose: 1.5 mg - Plan Plan (Free Text/Narrative):: 0910 Patient seen and examined. Agree with above note. Patient sitting up in chair. Has been progressing with PT. Pain controlled with meds. Hgb stable. No other medical issues noted. Dressing dry/intact. No calf TTP. NVI. 1. plan to discharge home later today 2. Eloquis for DVT prophylaxis 3. hospitalist for medical management 4. continue PT and outpatient PT 5. patient agrees with plan rrk <Alison Marceloah James - Last Filed: 03/28/17 14:02> - General Info Date of Service: 03/28/17 Date of Surgery/Procedure: 03/26/17 POD#: 2 Functional Status: Reports: Pain Controlled, Tolerating Diet, Ambulating, Urinating - Review of Systems General: Reports: No Symptoms Pulmonary: Denies: Shortness of Breath Cardiovascular: Denies: Chest Pain, Palpitations, Lightheadedness Gastrointestinal: Denies: Nausea Systems Review Comment:: pt up to chair for breakfast tolerating PO intake well ambulating independently with wheeled walker pain control meets his expectations would like to go home today - Patient Data Vitals - Most Recent: Last Vital Signs Temp 96.3 F 03/28/17 08:00 Pulse 111 H 03/28/17 08:00 Resp 17 03/28/17 08:00 BP 134/78 03/28/17 08:00 Pulse Ox 92 L 03/28/17 08:00 Weight - Most Recent: 160 kg I&O - Last 24 Hours: Intake & Output 03/27/17 03/28/17 03/28/17 22:59 06:59 14:59 Intake Total 4050 1300 Output Total 3450 2800 Balance 600 -1500 Lab Results Last 24 Hrs: Laboratory Results - last 24 hr 03/28/17 03/28/17 Range/Units 04:58 04:58 Hgb 11.6 L (13.0-17.0) g/dL Hct 34.3 L (38.0-50.0) % Sodium 138 (136-146) mmol/L Potassium 4.4 (3.5-5.1) mmol/L Chloride 106 (98-110) mmol/L Carbon Dioxide 27 (21-31) mmol/L BUN 10 (6.0-23.0) mg/dL Creatinine 0.8 (0.6-1.5) mg/dL Est Cr Clr Drug Dosing 122.77 mL/min Estimated GFR (MDRD) > 60.0 ml/min Glucose 101 (60-110) mg/dL Calcium 8.3 L (8.8-10.8) mg/dL Magnesium 1.6 (1.5-2.3) mEq/L Med Orders - Current: Current Medications Acetaminophen (Tylenol Extra Strength) 1,000 mg PO Q6H [facility] Last Admin: 03/28/17 06:34 Dose: 1,000 mg Al Hydroxide/Mg Hydroxide (Mag-Al Plus) 30 ml PO Q4H PRN PRN Reason: indigestion Apixaban (Eliquis) 5 mg PO DAILY [facility] Last Admin: 03/28/17 08:17 Dose: 5 mg Aspirin (Aspirin) 81 mg PO DAILY [facility] Last Admin: 03/28/17 08:17 Dose: 81 mg Bisacodyl (Dulcolax) 10 mg RECTAL DAILY PRN PRN Reason: Constipation Docusate Sodium (Colace) 100 mg PO BID [facility] Last Admin: 03/28/17 08:17 Dose: 100 mg Famotidine (Pepcid) 40 mg IVPUSH ONARRIVE [facility] Last Admin: 03/26/17 07:09 Dose: 40 mg Famotidine (Pepcid) 40 mg PO DAILY [facility] Last Admin: 03/28/17 08:17 Dose: 40 mg Gabapentin (Neurontin) 300 mg PO TID [facility] Last Admin: 03/28/17 06:33 Dose: 300 mg Hydromorphone HCl (Dilaudid) 0.5 - 1 mg IVPUSH Q3H PRN PRN Reason: Pain Last Admin: 03/27/17 13:55 Dose: 1 mg Acetaminophen 1,000 mg/ Premix 100 mls @ 400 mls/hr IV ONARRIVE [facility] Last Admin: 03/26/17 07:07 Dose: 400 mls/hr Cefazolin Sodium/Dextrose 2 gm (/ Premix) 50 mls @ 100 mls/hr IV ONCALL [facility] Ropivacaine 49.25 ml/Epinephrine HCl 0.5 mg/Clonidine HCl 80 mcg/ Sodium Chloride 100 mls @ 50 mls/min INJECT ASDIRECTED [facility] Tranexamic Acid 4,000 mg/ (Sodium Chloride) 140 mls @ 600 mls/hr IV ASDIRECTED [facility] Levothyroxine Sodium (Synthroid) 200 mcg PO ACBREAKFAST [facility] Last Admin: 03/28/17 06:33 Dose: 200 mcg Losartan Potassium (Cozaar) 25 mg PO ACBRK [facility] Last Admin: 03/28/17 06:45 Dose: Not Given Ondansetron HCl (Zofran) 4 mg IV Q6HR PRN PRN Reason: NAUSEA/VOMITING Oxycodone HCl (Oxycontin) 20 mg PO ONARRIVE [facility] Last Admin: 03/26/17 07:08 Dose: 20 mg Oxycodone HCl (Oxycodone) 5 - 10 mg PO Q4H PRN PRN Reason: Pain Last Admin: 03/28/17 06:35 Dose: 10 mg Oxycodone HCl (Oxycontin) 20 mg PO Q12HR [facility] Last Admin: 03/28/17 08:17 Dose: 20 mg Scopolamine (Transderm-Scop) 1.5 mg TRDERM ONARRIVE [facility] Last Admin: 03/26/17 07:08 Dose: 1.5 mg Discontinued Medications Aspirin (Aspirin) 81 mg PO ONETIME ONE Stop: 03/26/17 19:23 Last Admin: 03/26/17 20:08 Dose: 81 mg Ephedrine Sulfate (Ephedrine Sulfate) Confirm Administered Dose 50 mg .ROUTE .STK-MED ONE Stop: 03/26/17 09:37 Esmolol HCl (Esmolol) Confirm Administered Dose 100 mg .ROUTE .STK-MED ONE Stop: 03/26/17 10:47 Fentanyl (Sublimaze) Confirm Administered Dose 100 mcg .ROUTE .STK-MED ONE Stop: 03/26/17 07:23 Fentanyl (Sublimaze) Confirm Administered Dose 100 mcg .ROUTE .STK-MED ONE Stop: 03/26/17 07:28 Fentanyl (Sublimaze) 50 mcg IVPUSH Q5M PRN PRN Reason: Pain (severe 7-10) Stop: 03/27/17 08:23 Hydromorphone HCl (Dilaudid) 0 mg IVPUSH ONETIME ONE Stop: 03/26/17 08:24 Last Admin: 03/26/17 13:00 Dose: Not Given Lactated Ringer's (Ringers, Lactated) 1,000 mls @ 50 mls/hr IV ASDIRECTED [facility] Last Infusion: 03/27/17 10:30 Dose: 50 mls/hr Acetaminophen (Ofirmev) Confirm Administered Dose 100 mls @ as directed IV .STK- MED ONE Stop: 03/26/17 05:46 Last Admin: 03/26/17 13:00 Dose: Not Given Acetaminophen 1,000 mg/ Premix 100 mls @ 400 mls/hr IV Q6H [facility] Stop: 03/26/17 19:14 Last Admin: 03/26/17 18:33 Dose: 400 mls/hr Cefazolin Sodium/Dextrose 2 gm (/ Premix) 50 mls @ 100 mls/hr IV Q8HR [facility] Stop: 03/27/17 06:29 Cefazolin Sodium/Dextrose 2 gm (/ Premix) 50 mls @ 100 mls/hr IV ONETIME ONE Stop: 03/26/17 12:59 Last Admin: 03/26/17 12:34 Dose: 100 mls/hr Cefazolin Sodium/Dextrose 2 gm (/ Premix) 50 mls @ 100 mls/hr IV Q8H [facility] Stop: 03/27/17 04:59 Last Admin: 03/27/17 04:11 Dose: 100 mls/hr Magnesium Sulfate 2 gm/ Premix 50 mls @ 25 mls/hr IV ONETIME ONE Stop: 03/26/17 21:52 Last Admin: 03/26/17 20:08 Dose: 50 mls/hr Lidocaine (Xylocaine-Mpf 2%) Confirm Administered Dose 10 ml .ROUTE .STK-MED ONE Stop: 03/26/17 07:22 Midazolam HCl (Versed 1 Mg/Ml) Confirm Administered Dose 2 mg .ROUTE .STK-MED ONE Stop: 03/26/17 07:23 Propofol (Diprivan 20 Ml) Confirm Administered Dose 400 mg .ROUTE .STK-MED ONE Stop: 03/26/17 07:23 Propofol (Diprivan 20 Ml) Confirm Administered Dose 200 mg .ROUTE .STK-MED ONE Stop: 03/26/17 07:32 Tranexamic Acid (Cyklokapron) Confirm Administered Dose 4,000 mg .ROUTE .STK- MED ONE Stop: 03/26/17 07:50 - Exam Wound/Incisions: Healing Well. No: Drainage, Erythema General: Alert, Oriented Cardiovascular: Regular Rate, Regular Rhythm Extremities: Other (RLE - incision clean/dry/daren in place. at/ehl/gastroc 5/ 5, dp 2+, sensation intact distally.) Physical Findings Comment:: vss, afeb hgb 11.6 - Problem List Review Problem List Initiated/Reviewed/Updated: Yes - My Orders Last 24 Hours: Active Orders 24 hr Category Date Time Status Transfer Patient (Change bed) [ADT] Routine ADT 03/27/17 10:38 Ordered Communication Order [RC] ROUTINE Care 03/28/17 08:56 Active Telemetry Monitoring [Cardiac Monitoring] [RC] Q8H Care 03/27/17 11:29 Active Consult to Physician [CONS] Routine Cons 03/27/17 09:29 Active HEMOGLOBIN/HEMATOCRIT,HH [HEME] DAILY Lab 03/29/17 06:00 Ordered MAGNESIUM [CHEM] AM Lab 03/29/17 05:11 Ordered Apixaban [Eliquis] Med 03/27/17 09:00 Active 5 mg PO DAILY Aspirin Med 03/27/17 09:00 Active 81 mg PO DAILY Famotidine [Pepcid] Med 03/27/17 09:00 Active 40 mg PO DAILY Medication Orders Acetaminophen (Tylenol Extra Strength) 1,000 mg PO Q6H [facility] Last Admin: 03/28/17 06:34 Dose: 1,000 mg Admin: 03/28/17 01:33 Dose: 1,000 mg Admin: 03/27/17 18:39 Dose: 1,000 mg Admin: 03/27/17 12:22 Dose: 1,000 mg Admin: 03/27/17 06:31 Dose: 1,000 mg Admin: 03/27/17 00:27 Dose: 1,000 mg Al Hydroxide/Mg Hydroxide (Mag-Al Plus) 30 ml PO Q4H PRN PRN Reason: indigestion Apixaban (Eliquis) 5 mg PO DAILY [facility] Last Admin: 03/28/17 08:17 Dose: 5 mg Admin: 03/27/17 07:59 Dose: 5 mg Aspirin (Aspirin) 81 mg PO DAILY [facility] Last Admin: 03/28/17 08:17 Dose: 81 mg Admin: 03/27/17 07:59 Dose: 81 mg Bisacodyl (Dulcolax) 10 mg RECTAL DAILY PRN PRN Reason: Constipation Docusate Sodium (Colace) 100 mg PO BID [facility] Last Admin: 03/28/17 08:17 Dose: 100 mg Admin: 03/27/17 21:10 Dose: 100 mg Admin: 03/27/17 07:59 Dose: 100 mg Admin: 03/26/17 20:08 Dose: 100 mg Famotidine (Pepcid) 40 mg IVPUSH ONARRIVE [facility] Last Admin: 03/26/17 07:09 Dose: 40 mg Famotidine (Pepcid) 40 mg PO DAILY [facility] Last Admin: 03/28/17 08:17 Dose: 40 mg Admin: 03/27/17 07:59 Dose: 40 mg Gabapentin (Neurontin) 300 mg PO TID [facility] Last Admin: 03/28/17 06:33 Dose: 300 mg Admin: 03/27/17 21:11 Dose: 300 mg Admin: 03/27/17 13:07 Dose: 300 mg Admin: 03/27/17 05:19 Dose: 300 mg Admin: 03/26/17 22:09 Dose: 300 mg Admin: 03/26/17 13:25 Dose: 300 mg Hydromorphone HCl (Dilaudid) 0.5 - 1 mg IVPUSH Q3H PRN PRN Reason: Pain Last Admin: 03/27/17 13:55 Dose: 1 mg Admin: 03/27/17 10:20 Dose: 1 mg Admin: 03/27/17 05:17 Dose: 1 mg Admin: 03/27/17 00:24 Dose: 1 mg Admin: 03/26/17 20:06 Dose: 1 mg Admin: 03/26/17 14:49 Dose: 1 mg Acetaminophen 1,000 mg/ Premix 100 mls @ 400 mls/hr IV ONARRIVE [facility] Last Admin: 03/26/17 07:07 Dose: 400 mls/hr Cefazolin Sodium/Dextrose 2 gm (/ Premix) 50 mls @ 100 mls/hr IV ONCALL [facility] Ropivacaine 49.25 ml/Epinephrine HCl 0.5 mg/Clonidine HCl 80 mcg/ Sodium Chloride 100 mls @ 50 mls/min INJECT ASDIRECTED [facility] Tranexamic Acid 4,000 mg/ (Sodium Chloride) 140 mls @ 600 mls/hr IV ASDIRECTED [facility] Levothyroxine Sodium (Synthroid) 200 mcg PO ACBREAKFAST [facility] Last Admin: 03/28/17 06:33 Dose: 200 mcg Admin: 03/27/17 06:33 Dose: 200 mcg Losartan Potassium (Cozaar) 25 mg PO ACBRK [facility] Last Admin: 03/28/17 06:45 Dose: Admin: 03/27/17 06:34 Dose: 25 mg Ondansetron HCl (Zofran) 4 mg IV Q6HR PRN PRN Reason: NAUSEA/VOMITING Oxycodone HCl (Oxycontin) 20 mg PO ONARRIVE [facility] Last Admin: 03/26/17 07:08 Dose: 20 mg Oxycodone HCl (Oxycodone) 5 - 10 mg PO Q4H PRN PRN Reason: Pain Last Admin: 03/28/17 06:35 Dose: 10 mg Admin: 03/28/17 01:34 Dose: 10 mg Admin: 03/27/17 21:15 Dose: 10 mg Admin: 03/27/17 17:14 Dose: 10 mg Admin: 03/27/17 13:07 Dose: 10 mg Admin: 03/27/17 08:59 Dose: 10 mg Admin: 03/27/17 03:06 Dose: 10 mg Admin: 03/26/17 22:09 Dose: 10 mg Admin: 03/26/17 17:44 Dose: 10 mg Admin: 03/26/17 14:34 Dose: 5 mg Admin: 03/26/17 13:22 Dose: 5 mg Oxycodone HCl (Oxycontin) 20 mg PO Q12HR [facility] Last Admin: 03/28/17 08:17 Dose: 20 mg Admin: 03/27/17 21:10 Dose: 20 mg Admin: 03/27/17 07:59 Dose: 20 mg Admin: 03/26/17 20:08 Dose: 20 mg Scopolamine (Transderm-Scop) 1.5 mg TRDERM ONARRIVE [facility] Last Admin: 03/26/17 07:08 Dose: 1.5 mg - Assessment Assessment (Free Text/Narrative):: POD#2 R TKA acute posthemorrhagic anemia - Plan Plan (Free Text/Narrative):: dressing changed continue pain management and PT until d/ch to home d/ch to home today d/ch meds given in advance for [facility] - no rxs today d/ch summary #[id number]
--- NOTE | 2017-03-28 09:30 | PCM.CONSN ---
- General Info Date of Service: 03/28/17 Subjective Update: He hopes to go home today. - Review of Systems General: Denies: Chills Pulmonary: Denies: Shortness of Breath Cardiovascular: Denies: Chest Pain - Patient Data Vitals - Most Recent: Last Vital Signs Temp 96.3 F 03/28/17 08:00 Pulse 111 H 03/28/17 08:00 Resp 17 03/28/17 08:00 BP 134/78 03/28/17 08:00 Pulse Ox 92 L 03/28/17 08:00 Weight - Most Recent: 160 kg I&O - Last 24 Hours: Intake & Output 03/27/17 03/28/17 03/28/17 22:59 06:59 14:59 Intake Total 4050 1300 Output Total 3450 2800 Balance 600 -1500 Lab Results Last 24 Hours: Laboratory Results - last 24 hr 03/28/17 03/28/17 Range/Units 04:58 04:58 Hgb 11.6 L (13.0-17.0) g/dL Hct 34.3 L (38.0-50.0) % Sodium 138 (136-146) mmol/L Potassium 4.4 (3.5-5.1) mmol/L Chloride 106 (98-110) mmol/L Carbon Dioxide 27 (21-31) mmol/L BUN 10 (6.0-23.0) mg/dL Creatinine 0.8 (0.6-1.5) mg/dL Est Cr Clr Drug Dosing 122.77 mL/min Estimated GFR (MDRD) > 60.0 ml/min Glucose 101 (60-110) mg/dL Calcium 8.3 L (8.8-10.8) mg/dL Magnesium 1.6 (1.5-2.3) mEq/L Med Orders - Current: Current Medications Acetaminophen (Tylenol Extra Strength) 1,000 mg PO Q6H [facility] Last Admin: 03/28/17 06:34 Dose: 1,000 mg Al Hydroxide/Mg Hydroxide (Mag-Al Plus) 30 ml PO Q4H PRN PRN Reason: indigestion Apixaban (Eliquis) 5 mg PO DAILY [facility] Last Admin: 03/28/17 08:17 Dose: 5 mg Aspirin (Aspirin) 81 mg PO DAILY [facility] Last Admin: 03/28/17 08:17 Dose: 81 mg Bisacodyl (Dulcolax) 10 mg RECTAL DAILY PRN PRN Reason: Constipation Docusate Sodium (Colace) 100 mg PO BID [facility] Last Admin: 03/28/17 08:17 Dose: 100 mg Famotidine (Pepcid) 40 mg IVPUSH ONARRIVE [facility] Last Admin: 03/26/17 07:09 Dose: 40 mg Famotidine (Pepcid) 40 mg PO DAILY [facility] Last Admin: 03/28/17 08:17 Dose: 40 mg Gabapentin (Neurontin) 300 mg PO TID [facility] Last Admin: 03/28/17 06:33 Dose: 300 mg Hydromorphone HCl (Dilaudid) 0.5 - 1 mg IVPUSH Q3H PRN PRN Reason: Pain Last Admin: 03/27/17 13:55 Dose: 1 mg Acetaminophen 1,000 mg/ Premix 100 mls @ 400 mls/hr IV ONARRIVE [facility] Last Admin: 03/26/17 07:07 Dose: 400 mls/hr Cefazolin Sodium/Dextrose 2 gm (/ Premix) 50 mls @ 100 mls/hr IV ONCALL [facility] Ropivacaine 49.25 ml/Epinephrine HCl 0.5 mg/Clonidine HCl 80 mcg/ Sodium Chloride 100 mls @ 50 mls/min INJECT ASDIRECTED [facility] Tranexamic Acid 4,000 mg/ (Sodium Chloride) 140 mls @ 600 mls/hr IV ASDIRECTED [facility] Levothyroxine Sodium (Synthroid) 200 mcg PO ACBREAKFAST [facility] Last Admin: 03/28/17 06:33 Dose: 200 mcg Losartan Potassium (Cozaar) 25 mg PO ACBRK [facility] Last Admin: 03/28/17 06:45 Dose: Not Given Ondansetron HCl (Zofran) 4 mg IV Q6HR PRN PRN Reason: NAUSEA/VOMITING Oxycodone HCl (Oxycontin) 20 mg PO ONARRIVE [facility] Last Admin: 03/26/17 07:08 Dose: 20 mg Oxycodone HCl (Oxycodone) 5 - 10 mg PO Q4H PRN PRN Reason: Pain Last Admin: 03/28/17 06:35 Dose: 10 mg Oxycodone HCl (Oxycontin) 20 mg PO Q12HR [facility] Last Admin: 03/28/17 08:17 Dose: 20 mg Scopolamine (Transderm-Scop) 1.5 mg TRDERM ONARRIVE [facility] Last Admin: 03/26/17 07:08 Dose: 1.5 mg Discontinued Medications Aspirin (Aspirin) 81 mg PO ONETIME ONE Stop: 03/26/17 19:23 Last Admin: 03/26/17 20:08 Dose: 81 mg Ephedrine Sulfate (Ephedrine Sulfate) Confirm Administered Dose 50 mg .ROUTE .STK-MED ONE Stop: 03/26/17 09:37 Esmolol HCl (Esmolol) Confirm Administered Dose 100 mg .ROUTE .STK-MED ONE Stop: 03/26/17 10:47 Fentanyl (Sublimaze) Confirm Administered Dose 100 mcg .ROUTE .STK-MED ONE Stop: 03/26/17 07:23 Fentanyl (Sublimaze) Confirm Administered Dose 100 mcg .ROUTE .STK-MED ONE Stop: 03/26/17 07:28 Fentanyl (Sublimaze) 50 mcg IVPUSH Q5M PRN PRN Reason: Pain (severe 7-10) Stop: 03/27/17 08:23 Hydromorphone HCl (Dilaudid) 0 mg IVPUSH ONETIME ONE Stop: 03/26/17 08:24 Last Admin: 03/26/17 13:00 Dose: Not Given Lactated Ringer's (Ringers, Lactated) 1,000 mls @ 50 mls/hr IV ASDIRECTED [facility] Last Infusion: 03/27/17 10:30 Dose: 50 mls/hr Acetaminophen (Ofirmev) Confirm Administered Dose 100 mls @ as directed IV .STK- MED ONE Stop: 03/26/17 05:46 Last Admin: 03/26/17 13:00 Dose: Not Given Acetaminophen 1,000 mg/ Premix 100 mls @ 400 mls/hr IV Q6H [facility] Stop: 03/26/17 19:14 Last Admin: 03/26/17 18:33 Dose: 400 mls/hr Cefazolin Sodium/Dextrose 2 gm (/ Premix) 50 mls @ 100 mls/hr IV Q8HR [facility] Stop: 03/27/17 06:29 Cefazolin Sodium/Dextrose 2 gm (/ Premix) 50 mls @ 100 mls/hr IV ONETIME ONE Stop: 03/26/17 12:59 Last Admin: 03/26/17 12:34 Dose: 100 mls/hr Cefazolin Sodium/Dextrose 2 gm (/ Premix) 50 mls @ 100 mls/hr IV Q8H [facility] Stop: 03/27/17 04:59 Last Admin: 03/27/17 04:11 Dose: 100 mls/hr Magnesium Sulfate 2 gm/ Premix 50 mls @ 25 mls/hr IV ONETIME ONE Stop: 03/26/17 21:52 Last Admin: 03/26/17 20:08 Dose: 50 mls/hr Lidocaine (Xylocaine-Mpf 2%) Confirm Administered Dose 10 ml .ROUTE .STK-MED ONE Stop: 03/26/17 07:22 Midazolam HCl (Versed 1 Mg/Ml) Confirm Administered Dose 2 mg .ROUTE .STK-MED ONE Stop: 03/26/17 07:23 Propofol (Diprivan 20 Ml) Confirm Administered Dose 400 mg .ROUTE .STK-MED ONE Stop: 03/26/17 07:23 Propofol (Diprivan 20 Ml) Confirm Administered Dose 200 mg .ROUTE .STK-MED ONE Stop: 03/26/17 07:32 Tranexamic Acid (Cyklokapron) Confirm Administered Dose 4,000 mg .ROUTE .STK- MED ONE Stop: 03/26/17 07:50 - Exam General: Alert, Oriented, Cooperative Lungs: Normal Respiratory Effort Consult PN Assessment/Plan Procedures: Procedures CONTRAST X-RAY ESOPHAGUS (09/17/15) CT ABDOMEN W/O & W/DYE (11/27/13) CT ABDOMEN W/O DYE (01/25/15) ELECTRIC CURRENT THERAPY (07/21/16) EXC SKIN ABD (04/08/14) EXC TR-EXT B9+PARAM 0.5 CM< (12/25/14) HOT OR COLD PACKS THERAPY (07/31/16) HYDRATE IV INFUSION ADD-ON (04/08/14) INTMD RPR S/A/T/EXT 20.1-30 (12/25/14) KNEE ARTHROSCOPY/SURGERY (01/24/17) KNEE ARTHROSCOPY/SURGERY (08/30/16) MANUAL THERAPY 1/> REGIONS (07/21/16) MRI JNT OF LWR EXTRE W/O DYE (03/06/17) MRI NECK SPINE W/O & W/DYE (03/31/16) PT EVAL LOW COMPLEX 20 MIN (11/20/16) PT EVAL MOD COMPLEX 30 MIN (06/19/16) THER/PROPH/DIAG INJ IV PUSH (04/08/14) THER/PROPH/DIAG INJ SC/IM (04/08/14) THERAPEUTIC EXERCISES (11/30/16) TISSUE EXAM BY PATHOLOGIST (12/26/16) TX/PRO/DX INJ SAME DRUG STAFFING RN (04/08/14) ULTRASOUND THERAPY (11/30/16) UPR/L XTREMITY ART 2 LEVELS (09/17/15) US EXAM OF HEAD AND NECK (09/17/15) X-RAY EXAM KNEE 4 OR MORE (08/24/16) X-RAY EXAM OF ANKLE (03/22/16) X-RAY EXAM OF FOOT (11/15/16) X-RAY EXAM OF KNEE 1 OR 2 (01/11/17) X-RAY EXAM OF SHOULDER (06/18/14) (1) Cardiac arrest SNOMED Code(s): 025781457 Code(s): I46.9 - CARDIAC ARREST, CAUSE UNSPECIFIED Current Visit: Yes (2) Status post right knee replacement SNOMED Code(s): 039824427, 119707134 Code(s): Z96.651 - PRESENCE OF RIGHT ARTIFICIAL KNEE JOINT Current Visit: Yes (3) Status post knee replacement SNOMED Code(s): 244061998 Code(s): Z96.659 - PRESENCE OF UNSPECIFIED ARTIFICIAL KNEE JOINT Current Visit: Yes (4) History of chronic hypertension SNOMED Code(s): 716663573 Code(s): Z86.79 - PERSONAL HISTORY OF OTHER DISEASES OF THE CIRCULATORY SYSTEM Current Visit: Yes Problem List Initiated/Reviewed/Updated: Yes My Orders Last 24 Hours: My Active Orders 03/27/17 09:00 Aspirin 81 mg PO DAILY 03/27/17 09:29 Consult to Physician [CONS] Routine 03/27/17 10:38 Transfer Patient (Change bed) [ADT] Routine 03/27/17 11:29 Telemetry Monitoring [Cardiac Monitoring] [RC] Q8H 03/29/17 05:11 MAGNESIUM [CHEM] AM Plan: 03/28/2017 echo : poor study Dr Aguirre reviewed case. I advised patient about his course and advised regarding the importance of advising any future providers regarding this part of his medical history. As per verbal from Dr Aguirre, he is cleared for discharge today from our point of view with follow up with his primary care provider at the [facility]. Omar Martinez MD
--- NOTE | 2017-03-29 15:22 | DISCH ---
DATE OF DISCHARGE: 03/28/2017 PRIMARY CARE PHYSICIAN: Katina Nunez NP ADMITTING DIAGNOSIS: Degenerative joint disease, right knee, tricompartmental. OTHER MEDICAL DIAGNOSES: 1. Morbid obesity. 2. History of thyroid cancer, status post thyroidectomy. 3. Chronic pain. 4. Hypertension. 5. Hearing loss. DISCHARGE DIAGNOSES: 1. Degenerative joint disease, right knee, tricompartmental. 2. Morbid obesity. 3. History of thyroid cancer, status post thyroidectomy. 4. Chronic pain. 5. Hypertension. 6. Hearing loss. 7. Acute post hemorrhagic anemia. BRIEF HISTORY: The patient is a 47-year-old male, who has had progressive complaints of right knee pain. He has tried and failed conservative treatment. At that time, surgical treatment was recommended. On March 26, 2017, the patient underwent a right total knee arthroplasty using patient-specific instrumentation done by Dr. Tania Vicente. This was done under general anesthesia. Estimated blood loss was 100 mL. Tourniquet time was 65 minutes. Shortly after the procedure was started, the patient became bradycardic. He was then asystolic. Resuscitative measures were taken intraoperatively. We were able to successfully complete the procedure. Please see the anesthesia record for complete description of events. He was transferred to the PACU and to ICU in stable condition for postoperative care. HOSPITAL COURSE: Immediately postoperatively, the hospitalist was consulted. Cardiology was later consulted as well. His pain was controlled with a combination of oral and IV pain medication. Physical therapy followed him through his hospital stay. His vital signs were stable postoperatively. He received 2 doses of Ancef postoperatively for a total of 24 hours of antibiotic coverage. Eliquis 5 mg was started on postoperative day #1 as DVT prophylaxis. His vital signs have been stable. He has been afebrile. His hemoglobin on the morning of March 28, 2017, was 11.6. He is ambulating well with a wheeled walker. He is tolerating oral intake. He feels well. His pain is well controlled with oral pain medications only. He would like discharge to home today. DISCHARGE MEDICATIONS: All discharge medications were provided preoperatively as he processed them through the [facility]. DISCHARGE INSTRUCTIONS: 1. Follow up in clinic 10-14 days from the date of procedure. This appointment has been made for the patient. 2. Outpatient physical therapy 2-3 times per week for 4-6 weeks. 3. No driving for a minimum of 6 weeks status post right total knee arthroplasty. 4. ELIA hose, on in the morning, off in the evening. 5. Polar Care to the right knee as needed. 6. He is to change his dressing on Sunday, April 01, 2017. He should place a new Aquacel dressing and leave that in place until followup. 7. He has been advised by both hospitalist and Cardiology Services to follow up with his primary care provider. For complete medication reconciliation and discharge instructions, please refer back to the patient's EHR. Should he have questions or concerns prior to followup, he has been advised to return to clinic or call. JEREMIE ROTHMAN /[id number] PETER
--- NOTE | 2017-03-29 15:31 | ECHO ---
EXAM DATE: 03/26/17 PATIENT'S AGE: 47 The echocardiogram report can be seen in this patient's EMR (Electronic Medical Record) in the Reports section. The report has also been scanned into PACs. PETER
== END 2017-03-28 11:53 | disposition home or self-care (01) | DRG 470 ==
LOC: MW.MS 06:27 → MW.ICU 10:43
PROVIDERS: ADMIT Orthopaedic Surgery; ATTEND Orthopaedic Surgery
PROC: 0SRC0J9 Replacement of Right Knee Joint with Synthetic Substitute, Cemented, Open Approach (ICD-10-PCS; principal; 2017-03-26)
PROC: 5A12012 Performance of Cardiac Output, Single, Manual (ICD-10-PCS; 2017-03-26)
DX: M17.11 Unilateral primary osteoarthritis, right knee (principal); I97.711 Intraoperative cardiac arrest during other surgery; Y83.8 Other surgical procedures as the cause of abnormal reaction of the patient, or of later complication, without mention of misadventure at the time of the procedure; Y92.234 Operating room of hospital as the place of occurrence of the external cause; M94.261 Chondromalacia, right knee; F17.200 Nicotine dependence, unspecified, uncomplicated; Z88.8 Allergy status to other drugs, medicaments and biological substances; Z79.899 Other long term (current) drug therapy; I10 Essential (primary) hypertension; E03.9 Hypothyroidism, unspecified
CPT/HCPCS: 01402; 36415; 73560-26-RT; 73560-RT; 80048; 80053; 80061; 82550; 83735; 84443; 84484; 85014; 85018; 85025; 86850; 86900; 86901; 88304; 88311; 93005; 93307; 97110-GP; 97116-GP; 97161-GP; 97530-GP; A9270-GY; C1713; C1776; J0171; J0690; J0735; J1170; J2250; J2704; J2795; J3010; J3475; J7050; J7120

== ENCOUNTER 2019-01-07 06:36 | Day surgery (SDC) | payer OTHER ==
[~2019-01-07 06:36] MED LIST changes: -Acetaminophen 1,000 MG in Premix Bag 1 BAG IV SCH; -Famotidine 20 MG/2 ML SDV IVPUSH SCH; +Lactated Ringers 1,000 ML IV SCH; -Scopolamine 1.5 MG Transdermal Patch TRDERM SCH; +Sodium Chloride 0.9% 10 ML SDV IV PRN; +Sodium Chloride 0.9% 10 ML Syringe FLUSH PRN; +Sodium Chloride 0.9% 2.5 ML Syringe FLUSH PRN; -oxyCODONE ER 20 MG TAB.ER PO SCH
--- NOTE | 2019-01-07 07:13 | PCM.PREANE ---
Preanesthetic Assessment - Anesthesia/Transfusion/Family Hx Anesthesia History: Prior Anesthesia Reaction Other Type of Anesthesia Reaction Comment: "under spinal, heart stopped, during TKA" Family History of Anesthesia Reaction: No Transfusion History: No Prior Transfusion(s) Intubation History: History of Difficulty Intubation (past when much heavier) - Review of Systems General: No Symptoms Pulmonary: No Symptoms Cardiovascular: No Symptoms Gastrointestinal: No Symptoms Neurological: No Symptoms Other: Reports: None - Physical Assessment NPO Status Date: 01/07/19 NPO Status Time: 05:00 Vital Signs: Last Vital Signs Temp 97.5 F 01/07/19 06:50 Pulse 82 01/07/19 06:50 Resp 20 01/07/19 06:50 BP 165/98 H 01/07/19 06:50 Pulse Ox 95 01/07/19 06:50 Height: 32 ft 1 in Weight: 2.722 kg ASA Class: 3 Mental Status: Alert & Oriented x3 Airway Class: Mallampati = 3 Dentition: Reports: Normal Dentition Thyro-Mental Finger Breadths: 3 Mouth Opening Finger Breadths: 3 ROM/Head Extension: Limited/Partial Lungs: Clear to Auscultation, Normal Respiratory Effort Cardiovascular: Regular Rate, Regular Rhythm - Allergies Allergies/Adverse Reactions: Allergies Allergy/AdvReac Type Severity Reaction Status Date / Time lisinopril Allergy Cough Verified 01/06/19 09:29 meloxicam Allergy Chest Pain Verified 01/06/19 09:29 NSAIDS (Non-Steroidal Allergy Chest Pain Verified 01/06/19 09:29 Anti-Inflamma pseudoephedrine HCl Allergy Rash Verified 01/06/19 09:29 [From Actifed] triprolidine HCl Allergy Rash Verified 01/06/19 09:29 [From Actifed] - Acknowledgements Anesthesia Type Planned: General Anesthesia, MAC Pt an Appropriate Candidate for the Planned Anesthesia: Yes Alternatives and Risks of Anesthesia Discussed w Pt/Guardian: Yes Pt/Guardian Understands and Agrees with Anesthesia Plan: Yes PreAnesthesia Questionnaire HEENT History: Reports: Hard of Hearing Other HEENT History: hard of hearing right ear Cardiovascular History: Reports: Hypertension, Other (See Below) (Previous Cardiac Arrest) Respiratory History: Reports: None Gastrointestinal History: Reports: Other (See Below) Other Gastrointestinal History: occasional heartburn, difficulty swallowing Genitourinary History: Reports: Renal Calculus Musculoskeletal History: Reports: Fracture, Osteoarthritis Other Musculoskeletal History: hx: fracturing Left Ankle Neurological History: Reports: None Psychiatric History: Reports: None Endocrine/Metabolic History: Reports: Hypothyroidism, Obesity/BMI 30+ Other Endocrine/Metabolic History: hx: Thyroidectomy 5+ yrs ago [facility] [place] , [place] Hematologic History: Reports: None Immunologic History: Reports: None Oncologic (Cancer) History: Reports: Thyroid Dermatologic History: Reports: None - Past Surgical History Head Surgeries/Procedures: Reports: None HEENT Surgical History: Reports: LASIK, Naso-Sinus Surgery Cardiovascular Surgical History: Reports: Other (See Below) Other Cardiovascular Surgeries/Procedures: Angiogram 2 yrs ago, "all ok" Respiratory Surgical History: Reports: None GI Surgical History: Reports: Appendectomy, Cholecystectomy, Colonoscopy, EGD, Hernia Repair/Other Other GI Surgeries/Procedures: abdominoplasty x2 with hernia repair, previous EGD with dilation, diastasis surgery Male Surgical History: Reports: Kidney Stone Extraction Endocrine Surgical History: Reports: Thyroidectomy Neurological Surgical History: Reports: None Musculoskeletal Surgical History: Reports: Arthroscopic Knee, Carpal Tunnel, Knee Replacement, Other (See Below) Other Musculoskeletal Surgeries/Procedures:: 3 arthroscopies on each knee, ORIF left ankle with hardware, ligament repair left ankle, "lump removed " from chest, rt TKA Oncologic Surgical History: Reports: Other (See Below) Other Oncologic Surgeries/Procedures: thyroidectomy Dermatological Surgical History: Reports: Plastic Surgical Reconstruction/Repair - SUBSTANCE USE Tobacco Use Within Last Twelve Months: Cigars Recreational Drug Use History: No - HOME MEDS Home Medications: Home Meds Losartan Potassium 50 mg PO ACBRK 04/06/14 [History] Levothyroxine Sodium [Synthroid] 200 mcg PO ACBREAKFAST 12/23/14 [History] Cholecalciferol (Vitamin D3) [Vitamin D3] 2,000 unit PO DAILY 08/28/16 [History] Gabapentin [Neurontin] 0.5 tab PO TID 01/18/17 [History] Docusate Sodium 100 mg PO DAILY 03/19/18 [History] Morphine [MS Contin] 15 mg PO BID 03/19/18 [History] Sildenafil Citrate 20 mg PO ASDIRECTED PRN 03/19/18 [History] Tamsulosin HCl [Flomax] 0.4 mg PO BEDTIME 03/19/18 [History] - CURRENT (IN HOUSE) MEDS Current Meds: Current Medications Lactated Ringer's (Ringers, Lactated) 1,000 mls @ 125 mls/hr IV ASDIRECTED [facility] Last Admin: 01/07/19 07:09 Dose: 125 mls/hr Sodium Chloride (Saline Flush) 10 ml FLUSH ASDIRECTED PRN PRN Reason: Keep Vein Open Sodium Chloride (Saline Flush) 2.5 ml FLUSH ASDIRECTED PRN PRN Reason: Keep Vein Open Sodium Chloride (Normal Saline) 10 ml IV ASDIRECTED PRN PRN Reason: IV Use
[2019-01-07] MEDS ORDERED: fentaNYL 100 MCG/2 ML SDV ONE (07:18)
[2019-01-07] MEDS ORDERED: Lidocaine 2% 5 ML SDV ONE (07:18)
[2019-01-07] MEDS ORDERED: Propofol 200 MG/20 ML SDV ONE (07:18)
[2019-01-07 08:31] VITALS: BP 157/84; PULSE 84
--- NOTE | 2019-01-07 08:31 | PCM.POSTAN ---
POST ANESTHESIA ASSESSMENT - MENTAL STATUS Mental Status: Alert, Oriented - VITAL SIGNS Vital Signs: Last Vital Signs Temp 97.7 F 01/07/19 08:23 Pulse 84 01/07/19 08:23 Resp 16 01/07/19 08:23 BP 157/84 H 01/07/19 08:23 Pulse Ox 95 01/07/19 08:23 - RESPIRATORY Respiratory Status: Respiratory Rate WNL, Airway Patent, O2 Saturation Stable - CARDIOVASCULAR CV Status: Pulse Rate WNL, Blood Pressure Stable - GASTROINTESTINAL GI Status: No Symptoms - PAIN Pain Score: 0 - POST OP HYDRATION Hydration Status: Adequate & Stable
--- NOTE | 2019-01-07 09:05 | PCM.OPNOTE ---
- General Post-Op/Procedure Note Date of Surgery/Procedure: 01/07/19 Operative Procedure(s): Diagnostic EGD Findings: Gastritis with inflammation in the antrum and a mildly inflammed z-line Pre Op Diagnosis: Dysphagia Post-Op Diagnosis: gastritis Anesthesia Technique: MAC Primary Surgeon: Essence Blood Condition: Good Free Text/Narrative:: Intake & Output 01/06/19 01/07/19 01/07/19 22:59 06:59 14:59 Intake Total 450 Balance 450
--- NOTE | 2019-01-07 09:23 | PCM48HPAN ---
Post Anesthesia Note - EVALUATION WITHIN 48HRS OF ANESTHETIC Vital Signs in Normal Range: Yes Patient Participated in Evaluation: Yes Respiratory Function Stable: Yes Airway Patent: Yes Cardiovascular Function Stable: Yes Hydration Status Stable: Yes Pain Control Satisfactory: Yes Nausea and Vomiting Control Satisfactory: Yes Mental Status Recovered: Yes Vital Signs: Last Vital Signs Temp 97.7 F 01/07/19 08:23 Pulse 84 01/07/19 08:23 Resp 16 01/07/19 08:23 BP 157/84 H 01/07/19 08:23 Pulse Ox 95 01/07/19 08:23
--- NOTE | 2019-01-07 15:02 | OR ---
SURGEON: ESSENCE BLOOD MD DATE OF PROCEDURE: 01/07/2019 PREOPERATIVE DIAGNOSIS: Dysphagia. POSTOPERATIVE DIAGNOSIS: Gastritis. PROCEDURE PERFORMED: Diagnostic esophagogastroduodenoscopy with biopsy. PRIMARY SURGEON: Essence Blood MD. ANESTHESIA: MAC. INSTRUMENT USED: Olympus endoscope. EXTENT OF EXAM: To the second portion of duodenum. PREPARATION: Good. LIMITATIONS: None. INDICATIONS FOR EXAMINATION: The patient is a 48-year-old male who presents with dysphagia. He has a history of GERD in the remote past. He underwent an esophagram that showed delayed opening of the GE junction with barium pills, but was otherwise normal. The decision was made to proceed with diagnostic EGD. I explained the procedure; expected perioperative course; and risks including bleeding, infection, or damage to surrounding structures including perforation. The patient verbalized understanding and wishes to proceed. PROCEDURE IN DETAIL: The patient was brought into the endoscopy suite and placed in a beach chair position. A time-out was completed verifying the patient's name, age, date of , allergies, and procedure to be performed. A bite block was placed in the patient's mouth. Monitored anesthesia care was induced and continuous oxygen was provided via nasal cannula throughout the procedure. After adequate sedation was achieved, a well-lubricated endoscope was placed in the patient's mouth and advanced under direct visualization to the second portion of the duodenum. This appeared normal and a photograph was taken. The scope was then fully withdrawn while examining the color, texture, anatomy, and integrity of the mucosa of the upper GI tract. The duodenum appeared normal. Scope was brought into the stomach and a photograph was taken of the antrum and GE junction. Both appeared anatomically normal. The patient appeared to have signs of inflammation and one area that appeared to have superficial ulceration in the antrum. A biopsy of this area was taken and sent to pathology for H. pylori testing and histologic review. Two further biopsies were taken, one in the body and one in the fundus as well. The scope was then brought into the distal esophagus. The Z-line appeared mildly irregular, but there was no evidence of any distal esophagitis. A biopsy of the distal esophagus was taken using cold biopsy forceps. A photograph was taken of the Z-line. The remainder of the esophageal mucosa appeared normal. The scope was removed and the procedure terminated. The patient tolerated the procedure well and was taken transferred to the PACU in stable condition. ENDOSCOPIC DIAGNOSIS: Gastritis. RECOMMENDATIONS: We will start the patient on b.i.d. omeprazole and see him back in the clinic in 2 weeks. TIFFANY ROTHMAN /[id number]
== END 2019-01-07 08:38 | disposition home or self-care (01) ==
LOC: MW.SDS 06:36
PROVIDERS: ATTEND Surgery
DX: K29.70 Gastritis, unspecified, without bleeding (principal); K31.89 Other diseases of stomach and duodenum; K22.8 Other specified diseases of esophagus; R13.10 Dysphagia, unspecified; I10 Essential (primary) hypertension; E66.01 Morbid (severe) obesity due to excess calories; F17.290 Nicotine dependence, other tobacco product, uncomplicated; G62.9 Polyneuropathy, unspecified; M19.90 Unspecified osteoarthritis, unspecified site; Z68.43 Body mass index [BMI] 50.0-59.9, adult; Z88.6 Allergy status to analgesic agent; Z88.8 Allergy status to other drugs, medicaments and biological substances; Z86.010 Personal history of colon polyps; Z85.850 Personal history of malignant neoplasm of thyroid; Z79.899 Other long term (current) drug therapy
CPT/HCPCS: 43239; J2001; J2704; J3010; J7120; 00731; 88305; 88312

== ENCOUNTER 2019-04-18 08:54 | Day surgery (SDC) | payer OTHER, BC ==
[~2019-04-18 08:54] MED LIST changes: -Sodium Chloride 0.9% 10 ML SDV IV PRN; -Sodium Chloride 0.9% 10 ML Syringe FLUSH PRN; -Sodium Chloride 0.9% 2.5 ML Syringe FLUSH PRN
[2019-04-18] MEDS ORDERED: Midazolam 1 MG/ML 2 ML SDV ONE (09:44)
[2019-04-18] MEDS ORDERED: fentaNYL 100 MCG/2 ML SDV ONE (09:44)
[2019-04-18] MEDS ORDERED: Lidocaine 2% 5 ML SDV ONE (09:44)
[2019-04-18] MEDS ORDERED: Propofol 200 MG/20 ML SDV ONE (09:44)
--- NOTE | 2019-04-18 10:10 | PCM.PREANE ---
Preanesthetic Assessment - Anesthesia/Transfusion/Family Hx Anesthesia History: Prior Anesthesia Without Reaction Other Type of Anesthesia Reaction Comment: "under spinal my heart stopped during TKA" Family History of Anesthesia Reaction: No Transfusion History: No Prior Transfusion(s) Intubation History: History of Difficulty Intubation (past when much heavier) - Review of Systems General: No Symptoms Pulmonary: No Symptoms Cardiovascular: No Symptoms Gastrointestinal: No Symptoms Neurological: No Symptoms Other: Reports: None - Physical Assessment Height: 6 ft Weight: 176.447 kg ASA Class: 3 Mental Status: Alert & Oriented x3 Airway Class: Mallampati = 2 Dentition: Reports: Normal Dentition, Mandan(s) (multiple upper front) Thyro-Mental Finger Breadths: 3 Mouth Opening Finger Breadths: 2 ROM/Head Extension: Full Lungs: Clear to Auscultation, Normal Respiratory Effort Cardiovascular: Regular Rate, Regular Rhythm - Allergies Allergies/Adverse Reactions: Allergies Allergy/AdvReac Type Severity Reaction Status Date / Time lisinopril Allergy Cough Verified 04/17/19 07:22 meloxicam Allergy Chest Pain Verified 04/17/19 07:22 NSAIDS (Non-Steroidal Allergy Chest Pain Verified 04/17/19 07:22 Anti-Inflamma pseudoephedrine HCl Allergy Rash Verified 04/17/19 07:22 [From Actifed] triprolidine HCl Allergy Rash Verified 04/17/19 07:22 [From Actifed] - Blood Blood Available: No - Anesthesia Plan Pre-Op Medication Ordered: None - Acknowledgements Anesthesia Type Planned: MAC Pt an Appropriate Candidate for the Planned Anesthesia: Yes Alternatives and Risks of Anesthesia Discussed w Pt/Guardian: Yes Pt/Guardian Understands and Agrees with Anesthesia Plan: Yes PreAnesthesia Questionnaire HEENT History: Reports: Hard of Hearing Other HEENT History: hard of hearing left ear Cardiovascular History: Reports: Hypertension, Other (See Below) Respiratory History: Reports: None Gastrointestinal History: Reports: Other (See Below) Other Gastrointestinal History: occasional heartburn Genitourinary History: Reports: Renal Calculus Musculoskeletal History: Reports: Arthritis, Fracture Other Musculoskeletal History: hx: fracturing Left Ankle Neurological History: Reports: None Psychiatric History: Reports: None Endocrine/Metabolic History: Reports: Hypothyroidism, Obesity/BMI 30+ (BMI 52.8) Other Endocrine/Metabolic History: hx: Thyroidectomy 7 yrs ago Cam Goddard [place] Hematologic History: Reports: None Immunologic History: Reports: None Oncologic (Cancer) History: Reports: Thyroid Dermatologic History: Reports: None - Past Surgical History Head Surgeries/Procedures: Reports: None HEENT Surgical History: Reports: LASIK, Naso-Sinus Surgery Cardiovascular Surgical History: Reports: Other (See Below) Other Cardiovascular Surgeries/Procedures: Angiogram 3 yrs ago, "all ok" Respiratory Surgical History: Reports: None GI Surgical History: Reports: Appendectomy, Cholecystectomy, Colonoscopy, Hernia Repair/Other Other GI Surgeries/Procedures: abdominoplasty x2 with hernia repair Male Surgical History: Reports: None Endocrine Surgical History: Reports: Thyroidectomy Neurological Surgical History: Reports: None Musculoskeletal Surgical History: Reports: Arthroscopic Knee, Carpal Tunnel, Knee Replacement (rt. TKR 04/08), Other (See Below) Other Musculoskeletal Surgeries/Procedures:: 3 arthroscopies on each knee, ORIF left ankle with hardware, ligament repair left ankle, "lump removed " from chest Oncologic Surgical History: Reports: Other (See Below) Other Oncologic Surgeries/Procedures: thyroidectomy Dermatological Surgical History: Reports: Plastic Surgical Reconstruction/Repair - SUBSTANCE USE Smoking Status *Q: Never Smoker Recreational Drug Use History: No - HOME MEDS Home Medications: Home Meds Losartan Potassium 50 mg PO ACBRK 04/06/14 [History] Levothyroxine Sodium [Synthroid] 200 mcg PO ACBREAKFAST 12/23/14 [History] Cholecalciferol (Vitamin D3) [Vitamin D3] 2,000 unit PO DAILY 08/28/16 [History] Gabapentin [Neurontin] 0.5 tab PO TID 01/18/17 [History] Docusate Sodium 100 mg PO DAILY 03/19/18 [History] Morphine [MS Contin] 15 mg PO BID 03/19/18 [History] Sildenafil Citrate 20 mg PO ASDIRECTED PRN 03/19/18 [History] Tamsulosin HCl [Flomax] 0.4 mg PO BEDTIME 03/19/18 [History] Omeprazole 20 mg PO BIDAC #60 cap.sr 01/07/19 [Rx] - CURRENT (IN HOUSE) MEDS Current Meds: Current Medications Lactated Ringer's (Ringers, Lactated) 1,000 mls @ 125 mls/hr IV ASDIRECTED CHANTALE Last Admin: 04/18/19 10:03 Dose: 125 mls/hr Discontinued Medications Fentanyl (Sublimaze) Confirm Administered Dose 100 mcg .ROUTE .STK-MED ONE Stop: 04/18/19 09:45 Lidocaine (Xylocaine-Mpf 2%) Confirm Administered Dose 5 ml .ROUTE .STK-MED ONE Stop: 04/18/19 09:45 Midazolam HCl (Versed 1 Mg/Ml) Confirm Administered Dose 2 mg .ROUTE .STK-MED ONE Stop: 04/18/19 09:45 Propofol (Diprivan 20 Ml) Confirm Administered Dose 400 mg .ROUTE .STK-MED ONE Stop: 04/18/19 09:45
[2019-04-18] MEDS ORDERED: Lidocaine 1% 20 ML MDV ONE (10:37)
[2019-04-18] MEDS ORDERED: ceFAZolin/Dextrose,Iso-Osmotic 2 GM/50 ML Duplex Bag IV ONE (11:12)
[2019-04-18] MEDS ORDERED: Ondansetron 4 MG/2 ML SDV ONE (11:17)
--- NOTE | 2019-04-18 11:29 | PCM.OPNOTE ---
- General Post-Op/Procedure Note Date of Surgery/Procedure: 04/18/19 Operative Procedure(s): right thumb nail removal and nailbed biopsy Pre Op Diagnosis: possible mass right thumb Post-Op Diagnosis: Same Anesthesia Technique: Local, Moderate Sedation Primary Surgeon: Jaylan Yu EBL in mLs: 5 Complications: None Condition: Good
--- NOTE | 2019-04-18 11:42 | PCM.POSTAN ---
POST ANESTHESIA ASSESSMENT - MENTAL STATUS Mental Status: Alert, Oriented - VITAL SIGNS Vital Signs: Last Vital Signs Temp 36.6 C 04/18/19 11:31 Pulse 81 04/18/19 11:31 Resp 13 04/18/19 11:31 BP 94/57 L 04/18/19 11:31 Pulse Ox 98 04/18/19 11:31 - RESPIRATORY Respiratory Status: Respiratory Rate WNL, Airway Patent, O2 Saturation Stable - CARDIOVASCULAR CV Status: Pulse Rate WNL, Blood Pressure Stable - GASTROINTESTINAL GI Status: No Symptoms - PAIN Pain Score: 2 (chronic leg pain) - POST OP HYDRATION Hydration Status: Adequate & Stable
[2019-04-18] MEDS ORDERED: fentaNYL 100 MCG/2 ML SDV IVPUSH PRN (12:07)
--- NOTE | 2019-04-18 12:10 | PCM48HPAN ---
Post Anesthesia Note - EVALUATION WITHIN 48HRS OF ANESTHETIC Vital Signs in Normal Range: Yes Patient Participated in Evaluation: Yes Respiratory Function Stable: Yes Airway Patent: Yes Cardiovascular Function Stable: Yes Hydration Status Stable: Yes Pain Control Satisfactory: Yes Nausea and Vomiting Control Satisfactory: Yes Mental Status Recovered: Yes Vital Signs: Last Vital Signs Temp 36.6 C 04/18/19 11:31 Pulse 86 04/18/19 11:46 Resp 10 L 04/18/19 11:46 BP 101/62 04/18/19 11:41 Pulse Ox 93 L 04/18/19 11:41 - COMMENTS/OBSERVATIONS Free Text/Narrative:: no anesthesia problems
[2019-04-18 13:10] VITALS: BP 109/57; PULSE 82
--- NOTE | 2019-04-18 13:34 | OR ---
SURGEON: Jaylan Yu DATE OF PROCEDURE: 04/18/2019 PREOPERATIVE DIAGNOSIS: Right thumb mass. POSTOPERATIVE DIAGNOSIS: Right thumb mass. PROCEDURE: Right thumb nail removal and nail bed biopsy. PRIMARY SURGEON: Jaylan Yu DO. ANESTHESIA: Conscious sedation plus local. FLUID: Lactated Ringer's solution. ESTIMATED BLOOD LOSS: 5 mL. COMPLICATIONS: None. SPECIMEN: Nail and nail bed. DISCHARGE DISPOSITION: Stable to PACU. HISTORY AND INDICATION FOR THE PROCEDURE: The patient was seen preoperatively in the clinic. He does have a history of thyroid cancer. He noticed that he had discoloration of his nail bed without trauma. Risks and goals of the procedure were explained to the patient. Informed consent obtained. DETAILS OF PROCEDURE: The patient was seen preoperatively by myself and the Anesthesia staff in the preoperative holding area where the operative site was marked. He was brought to the operative suite by the Anesthesia staff where conscious sedation was administered. The right upper extremity was then prepped and draped in a sterile manner. Time-out was called to identify the correct patient, the correct procedure, the correct site and that antibiotics had been given within appropriate period of time. Local anesthetic was infiltrated into the base of the thumb as well as near the nail bed. I then used a [place] to remove the nail. I did not notice any discoloration or anything abnormal about the nail bed. We cemented the nail and then I used a rongeur to remove some tissue from the nail bed, and we also submitted that for specimen. Having accomplished our goals, we then placed Adaptic into the nail bed and then I used 5-0 nylon to suture that in place and then covered this with a fluff and Kerlix and tape. The patient was allowed to awaken from moderate sedation and then taken to the PACU in stable condition. [id number] / MODL /[id number]
== END 2019-04-18 12:33 | disposition home or self-care (01) ==
LOC: MW.SDS 08:54
PROVIDERS: ATTEND Orthopaedic Surgery
DX: L60.8 Other nail disorders (principal); I10 Essential (primary) hypertension; E03.9 Hypothyroidism, unspecified; M19.90 Unspecified osteoarthritis, unspecified site; F17.210 Nicotine dependence, cigarettes, uncomplicated; E66.9 Obesity, unspecified; Z79.899 Other long term (current) drug therapy; Z88.8 Allergy status to other drugs, medicaments and biological substances; Z68.43 Body mass index [BMI] 50.0-59.9, adult
CPT/HCPCS: 11755; 88305; J0690; J2001; J2250; J2405; J2704; J3010; J7120; 00400

== ENCOUNTER 2021-04-05 10:30 | Day surgery (SDC) | payer OTHER, BC ==
[~2021-04-05 10:30] MED LIST changes: +Sodium Chloride 0.9% 10 ML Syringe FLUSH PRN; +Sodium Chloride 0.9% 2.5 ML Syringe FLUSH PRN; +Sodium Chloride 0.9% 20 ML SDV IV PRN
--- NOTE | 2021-04-05 12:38 | PCM.PREANE ---
Preanesthetic Assessment - Anesthesia/Transfusion/Family Hx Anesthesia History: Prior Anesthesia Reaction Other Type of Anesthesia Reaction Comment: cardiac arrest Family History of Anesthesia Reaction: No Transfusion History: No Prior Transfusion(s) Intubation History: History of Difficulty Intubation (past when much heavier) - Review of Systems General: No Symptoms Pulmonary: No Symptoms Cardiovascular: No Symptoms Gastrointestinal: No Symptoms Neurological: No Symptoms Other: Reports: None - Physical Assessment NPO Status Date: 04/05/21 NPO Status Time: 00:00 Vital Signs: Last Vital Signs Temp 96.6 F L 04/05/21 10:40 Pulse 85 04/05/21 10:40 Resp 16 04/05/21 10:40 BP 157/85 H 04/05/21 10:40 Pulse Ox 95 04/05/21 10:40 Height: 6 ft 1 in Weight: 331 lb ASA Class: 3 Mental Status: Alert & Oriented x3 Airway Class: Mallampati = 2 Dentition: Reports: Normal Dentition Thyro-Mental Finger Breadths: 3 Mouth Opening Finger Breadths: 3 ROM/Head Extension: Full Lungs: Clear to Auscultation, Normal Respiratory Effort Cardiovascular: Regular Rate, Regular Rhythm - Allergies Allergies/Adverse Reactions: Allergies Allergy/AdvReac Type Severity Reaction Status Date / Time lisinopril Allergy Cough Verified 03/30/21 10:26 losartan Allergy Edema Verified 03/30/21 10:26 meloxicam Allergy Chest Pain Verified 03/30/21 10:26 NSAIDS (Non-Steroidal Allergy Chest Pain Verified 03/30/21 10:26 Anti-Inflamma pseudoephedrine HCl Allergy Rash Verified 03/30/21 10:26 [From Actifed] triprolidine HCl Allergy Rash Verified 03/30/21 10:26 [From Actifed] - Acknowledgements Anesthesia Type Planned: General Anesthesia Pt an Appropriate Candidate for the Planned Anesthesia: Yes Alternatives and Risks of Anesthesia Discussed w Pt/Guardian: Yes Pt/Guardian Understands and Agrees with Anesthesia Plan: Yes PreAnesthesia Questionnaire HEENT History: Reports: Hard of Hearing Other HEENT History: hard of hearing right ear Cardiovascular History: Reports: Hypertension, Prior Cardiac Arrest Other Cardiovascular History: had a "cardiac arrest" during TKA- due to "a combination of spinal and general anesthesia" Respiratory History: Reports: None Gastrointestinal History: Reports: Chronic Constipation, Colon Polyp, GERD Genitourinary History: Reports: Renal Calculus Musculoskeletal History: Reports: Arthritis, Fracture Other Musculoskeletal History: hx: fracturing Left Ankle Neurological History: Reports: Neuropathy, Peripheral Psychiatric History: Reports: None Endocrine/Metabolic History: Reports: Hypothyroidism, Obesity/BMI 30+ Other Endocrine/Metabolic History: hx: Thyroidectomy 7 yrs ago Cam Goddard, [place] Hematologic History: Reports: None Immunologic History: Reports: None Oncologic (Cancer) History: Reports: Thyroid Dermatologic History: Reports: None - Past Surgical History Head Surgeries/Procedures: Reports: None HEENT Surgical History: Reports: LASIK, Naso-Sinus Surgery Cardiovascular Surgical History: Reports: Other (See Below) Other Cardiovascular Surgeries/Procedures: Angiogram 3 yrs ago, "all ok" Respiratory Surgical History: Reports: None GI Surgical History: Reports: Appendectomy, Bariatric Procedure, Cholecystectomy, Colonoscopy, Hernia Repair/Other Other GI Surgeries/Procedures: abdominoplasty x2 with umbilical hernia repair, repair of diatesis Male Surgical History: Reports: Lithotripsy ([facility]) Endocrine Surgical History: Reports: Thyroidectomy Neurological Surgical History: Reports: None Musculoskeletal Surgical History: Reports: Arthroscopic Knee, Carpal Tunnel, Knee Replacement, Other (See Below) Other Musculoskeletal Surgeries/Procedures:: 3 arthroscopies on each knee, ORIF left ankle with hardware, ligament repair left ankle, "lump removed " from chest, heel surgery Oncologic Surgical History: Reports: Other (See Below) Other Oncologic Surgeries/Procedures: thyroidectomy - SUBSTANCE USE Tobacco Use Status *Q: Former Tobacco User Tobacco Use Within Last Twelve Months: Cigars, Pipe Recreational Drug Use History: No - HOME MEDS Home Medications: Home Meds Tamsulosin HCl [Flomax] 0.4 mg PO BEDTIME 03/19/18 [History] Omeprazole 20 mg PO BIDAC #60 cap.sr 01/07/19 [Rx] Bariatric Multivitamin/Iron 1 tab PO DAILY 03/30/21 [History] Calcium Carbonate [Calcium] 500 mg PO TID 03/30/21 [History] Diclofenac Sodium [Voltaren Arthritis Pain] 4 gm TOP QID PRN 03/30/21 [History] Docusate Sodium 100 mg PO BID 03/30/21 [History] Levothyroxine Sodium [Synthroid] 224 mcg PO QAM 03/30/21 [History] Metoprolol Tartrate 50 mg PO BID 03/30/21 [History] Nortriptyline HCl [Pamelor] 50 mg PO BEDTIME 03/30/21 [History] - CURRENT (IN HOUSE) MEDS Current Meds: Current Medications Lactated Ringer's (Ringers, Lactated) 1,000 mls @ 125 mls/hr IV ASDIRECTED CHANTALE Last Admin: 04/05/21 11:00 Dose: 125 mls/hr Documented by: Sodium Chloride (Sodium Chloride 0.9% 10 Ml Syringe) 10 ml FLUSH ASDIRECTED PRN PRN Reason: Keep Vein Open Sodium Chloride (Sodium Chloride 0.9% 2.5 Ml Syringe) 2.5 ml FLUSH ASDIRECTED PRN PRN Reason: Keep Vein Open Sodium Chloride (Sodium Chloride 0.9% 10 Ml Syringe) 10 ml FLUSH ASDIRECTED PRN PRN Reason: Keep Vein Open Sodium Chloride (Sodium Chloride 0.9% 2.5 Ml Syringe) 2.5 ml FLUSH ASDIRECTED PRN PRN Reason: Keep Vein Open Sodium Chloride (Sodium Chloride 0.9% 20 Ml Sdv) 10 ml IV ASDIRECTED PRN PRN Reason: IV Use
[2021-04-05] MEDS ORDERED: fentaNYL 100 MCG/2 ML SDV ONE (13:04)
[2021-04-05] MEDS ORDERED: propofoL 50 ML ONE (13:51)
[2021-04-05] MEDS ORDERED: Ketamine 500 mg/10 ML MDV ONE (13:53)
--- NOTE | 2021-04-05 14:40 | PCM.POSTAN ---
POST ANESTHESIA ASSESSMENT - MENTAL STATUS Mental Status: Alert, Oriented - VITAL SIGNS Vital Signs: Last Vital Signs Temp 96.6 F L 04/05/21 10:40 Pulse 85 04/05/21 10:40 Resp 16 04/05/21 10:40 BP 157/85 H 04/05/21 10:40 Pulse Ox 95 04/05/21 10:40 - RESPIRATORY Respiratory Status: Respiratory Rate WNL, Airway Patent, O2 Saturation Stable - CARDIOVASCULAR CV Status: Pulse Rate WNL, Blood Pressure Stable - GASTROINTESTINAL GI Status: No Symptoms - POST OP HYDRATION Hydration Status: Adequate & Stable
--- NOTE | 2021-04-05 14:41 | PCM48HPAN ---
Post Anesthesia Note - EVALUATION WITHIN 48HRS OF ANESTHETIC Vital Signs in Normal Range: Yes Patient Participated in Evaluation: Yes Respiratory Function Stable: Yes Airway Patent: Yes Cardiovascular Function Stable: Yes Hydration Status Stable: Yes Pain Control Satisfactory: Yes Nausea and Vomiting Control Satisfactory: Yes Mental Status Recovered: Yes Vital Signs: Last Vital Signs Temp 96.6 F L 04/05/21 10:40 Pulse 85 04/05/21 10:40 Resp 16 04/05/21 10:40 BP 157/85 H 04/05/21 10:40 Pulse Ox 95 04/05/21 10:40
--- NOTE | 2021-04-05 14:44 | PCM.OPNOTE ---
- General Post-Op/Procedure Note Date of Surgery/Procedure: 04/05/21 Operative Procedure(s): Screening colonoscopy Findings: Rectal polyp x 2 Pre Op Diagnosis: History of colon polyp Post-Op Diagnosis: Rectal polyp x 2 Anesthesia Technique: MAC Primary Surgeon: Essence Blood Condition: Good
[2021-04-05 15:00] VITALS: BP 122/62; PULSE 65
--- NOTE | 2021-04-05 19:20 | OR ---
SURGEON: ESSENCE BLOOD MD DATE OF PROCEDURE: 04/05/2021 PREOPERATIVE DIAGNOSIS: History of colon polyps. POSTOPERATIVE DIAGNOSIS: Rectal polyp x2. PROCEDURE PERFORMED: Screening colonoscopy with polypectomy. PRIMARY SURGEON: Essence Blood MD ANESTHESIA: General. INSTRUMENT USED: Olympus colonoscope. EXTENT OF THE EXAM: To the cecum. PREPARATION: Good. LIMITATIONS: None. 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 He is due for repeat colonoscopy. I explained the procedure, expected perioperative course, and the risks. He verbalized understanding and wishes to proceed. PROCEDURE IN DETAIL: The patient was brought in to the endoscopy suite and placed in a left lateral decubitus position. A time-out was completed verifying the patient's name, age, date of , allergies, and procedure to be performed. Anesthesia was induced and continuous oxygen was provided via face mask throughout the procedure. After adequate sedation was achieved, a digital rectal exam was performed. This exam was within normal limits. A well-lubricated colonoscope was inserted in the rectum and advanced under direct visualization to the level of the cecum. The cecum was identified by both visual and anatomic landmarks. A photograph was taken of the cecal cap, however, I was unable to retroflex the scope within the cecum due to looping of the scope more proximally. The scope was then fully withdrawn while examining the color, texture, anatomy, and integrity of the mucosa from the cecum to the anal canal. Most of the colonic mucosa appeared normal. When the scope was brought into the proximal rectum, two sessile polyps were noted. These were removed in piecemeal fashion using a cold biopsy forceps and sent to Pathology. The scope was then retroflexed within the rectum to allow visualization of the anal canal opening. This appeared normal and a photograph was taken. The scope was then straightened out and fully withdrawn. The cecum to anus time was greater than 6 minutes. The patient tolerated the procedure well and transferred to the PACU in stable condition. ENDOSCOPIC DIAGNOSIS: Rectal polyps x2. RECOMMENDATION: Follow up in clinic in two weeks. TIFFANY ROTHMAN /[id number]
== END 2021-04-05 15:25 | disposition home or self-care (01) ==
LOC: MW.SDS 10:30
PROVIDERS: ATTEND Surgery
DX: Z12.11 Encounter for screening for malignant neoplasm of colon (principal); D12.8 Benign neoplasm of rectum; G89.29 Other chronic pain; G62.9 Polyneuropathy, unspecified; F17.200 Nicotine dependence, unspecified, uncomplicated; M25.373 Other instability, unspecified ankle; Z79.899 Other long term (current) drug therapy; Z88.8 Allergy status to other drugs, medicaments and biological substances; Z90.49 Acquired absence of other specified parts of digestive tract; Z98.890 Other specified postprocedural states
CPT/HCPCS: 45380; J2704; J3010; J7120; 00812; 88305

== ENCOUNTER 2022-07-19 06:38 | Day surgery (SDC) | payer OTHER, BC ==
[~2022-07-19 06:38] MED LIST changes: -Sodium Chloride 0.9% 10 ML Syringe FLUSH PRN; -Sodium Chloride 0.9% 2.5 ML Syringe FLUSH PRN; -Sodium Chloride 0.9% 20 ML SDV IV PRN; +ceFAZolin 2 GM in Sodium Chloride 0.9% 100 ML IV SCH
[2022-07-19] MEDS ORDERED: Metoclopramide 10 MG/2 ML SDV IVPUSH PRN (06:54)
[2022-07-19] MEDS ORDERED: Morphine 2 MG/ML SYRINGE IVPUSH PRN (06:54)
[2022-07-19] MEDS ORDERED: fentaNYL 50 MCG/ML SDV IVPUSH PRN (06:54)
[2022-07-19] MEDS ORDERED: Albuterol 0.083% 2.5 MG/3 ML Neb Soln NEB PRN (06:54)
[2022-07-19] MEDS ORDERED: HYDROmorphone 1 MG/ML Syringe IVPUSH PRN (06:54)
[2022-07-19] MEDS ORDERED: Ondansetron 4 MG/2 ML SDV IVPUSH PRN (06:54)
[2022-07-19] MEDS ORDERED: Naloxone 0.4 MG/ML SDV IVPUSH PRN (06:54)
[2022-07-19] MEDS ORDERED: Propofol 200 MG/20 ML SDV ONE (07:21)
[2022-07-19] MEDS ORDERED: Midazolam 1 MG/ML 2 ML SDV ONE (07:21)
[2022-07-19] MEDS ORDERED: fentaNYL 250 MCG/5 ML SDV ONE (07:21)
[2022-07-19] MEDS ORDERED: Bupivacaine 25%/EPINEPHrine/PF 30 ML ONE (07:26)
[2022-07-19] MEDS ORDERED: EPINEPHrine 1 MG/1 ML Amp ONE (07:27)
[2022-07-19] MEDS ORDERED: Ropivacaine 0.5% 5 MG/ML 30 ML SDV ONE (07:33)
[2022-07-19] MEDS ORDERED: Desflurane 240 ML Bottle ONE (10:19)
[2022-07-19] MEDS ORDERED: ePHEDrine 50 MG/ML SDV ONE (12:08)
[2022-07-19] MEDS ORDERED: Ondansetron 4 MG/2 ML SDV ONE (12:08)
[2022-07-19] MEDS ORDERED: Glycopyrrolate 0.2 MG/ML SDV ONE (12:08)
[2022-07-19] MEDS ORDERED: ceFAZolin 2 GM Vial ONE (12:08)
[2022-07-19] MEDS ORDERED: Dexamethasone 4 MG/ML 5 ML MDV ONE (12:08)
[2022-07-19] MEDS ORDERED: Ketorolac 30 MG/ML SDV ONE (12:08)
[2022-07-19] MEDS ORDERED: Sugammadex Sodium 200 MG/2 ML VIAL ONE (12:08)
[2022-07-19] MEDS ORDERED: Phenylephrine 1% 10 MG/ML SDV ONE (12:08)
[2022-07-19] MEDS ORDERED: Rocuronium Bromide 50 MG/5 ML Syringe ONE (12:08)
[2022-07-19] MEDS ORDERED: Atropine 1 MG/ML SDV ONE (12:08)
[2022-07-19 13:59] VITALS: BP 101/56; PULSE 49
== END 2022-07-19 12:30 | disposition home or self-care (01) ==
LOC: MW.SDS 06:38
PROVIDERS: ATTEND Orthopaedic Surgery
DX: M75.102 Unspecified rotator cuff tear or rupture of left shoulder, not specified as traumatic (principal); G62.9 Polyneuropathy, unspecified; N40.0 Benign prostatic hyperplasia without lower urinary tract symptoms; I10 Essential (primary) hypertension; M75.52 Bursitis of left shoulder; E03.9 Hypothyroidism, unspecified; Z79.899 Other long term (current) drug therapy; Z79.890 Hormone replacement therapy; Z98.890 Other specified postprocedural states; Z87.891 Personal history of nicotine dependence; Z88.8 Allergy status to other drugs, medicaments and biological substances; Z88.5 Allergy status to narcotic agent
CPT/HCPCS: 29827; 64415; J0131; J0171; J0461; J0690; J1100; J1885; J2250; J2370; J2405; J2704; J2795; J3010; J3490; J7120